=== PATIENT | male | born 1950 | race Caucasian/White ===

== ENCOUNTER 2020-03-27 16:07 | Emergency (ER) | payer MEDICARE, MEDICAID, SELFPAY ==
[2020-03-27 16:14] VITALS: BP 131/73; PULSE 72; RESP 16; TEMP 36.6; O2SAT 98; BMI 18.3
[2020-03-27 16:33] LABS: Glucose, Whole Blood 92 mg/dL (60-115)
--- NOTE | 2020-03-27 16:37 | ECG_ITS ---
Test Reason : FALL Blood Pressure : / mmHG Vent. Rate : 072 BPM Atrial Rate : 072 BPM P-R Int : 156 ms QRS Dur : 096 ms QT Int : 404 ms P-R-T Axes : 049 036 036 degrees QTc Int : 442 ms Normal sinus rhythm Septal infarct (cited on or before 18-SEP-2013) Abnormal ECG When compared with ECG of 18-SEP-2013 22:13, No significant change was found Referred By: David Coronado Electronically Signed By:Melchor Cruz
--- NOTE | 2020-03-27 16:38 | CT_ITS ---
EXAMINATION: CT BRAIN AND CT CERVICAL SPINE WITHOUT CONTRAST. CLINICAL INFORMATION: Fall, neck pain. No LOC. COMPARISON: CT cervical spine and CT brain 11/29/2019 TECHNIQUE: 5 mm thin axial and reformatted 3 mm thin sagittal and coronal images of brain were obtained without contrast. Subsequently axial 3 mm thin and reformatted 2 mm thin sagittal coronal images of cervical spine were obtained. DLP 1780 FINDINGS: There is significant patient motion resulting in significant artifact. BRAIN: There is no acute intra-axial, extra-axial bleed, collection, masses or midline shift. There is a hypodensity seen in bilateral posterior parietal lobes slightly larger on the left. Are unremarkable. Images there is no abnormality seen. The lateral ventricles are symmetrical in size and configuration without enlargement. The akers to white matter differentiation is maintained normal. Bone windows reveal no calvarial abnormality. There is complete opacification of right maxillary sinus. Rest of the paranasal sinuses and mastoids air cells are well-aerated. No scalp soft tissue abnormality seen. CERVICAL SPINE: There is normal cervical lordosis. There is loss of C3-C4, C5-C6 and C6-C7 disc heights with posterior spondylosis. Rest the disc heights, vertebral heights and alignment is normal. The craniovertebral junction and C1-C2 alignment is normal. No visible acute fracture, dislocation or subluxation seen. The prevertebral and paravertebral soft tissues are normal. CT/CT cervical spine wo con IMPRESSION: Bilateral posterior parietal lobe hypodensity suggestive of acute infarction. There is significant artifact seen from patient motion. Repeat images there is no significant upper densities seen in both posterior parietal lobes, likely artifact. Chronic right maxillary sinus inflammatory changes. No acute fracture or dislocation in cervical spine. There are degenerative disc changes with spondylosis as described above. Limited study due to patient motion.
--- NOTE | 2020-03-27 16:40 | ED_ITS ---
HPI - General Adult General Chief complaint: Fall Stated complaint: UNWITNESSED FALL Time Seen by Provider: 03/27/20 16:20 Source: EMS and RN notes reviewed Mode of arrival: EMS Limitations: altered mental status (Patient not answering questions) History of Present Illness HPI narrative: 69-year-old male who presents emergency department for evaluation of an unwitnessed fall at his care facility. Nursing report stated that the patient was standing by his bed and had an unwitnessed fall. The patient complained of feeling lightheaded but he is not answer questions at this time and I cannot get any more details about this symptom. The patient was then sent to the emergency department for evaluation possible injuries from his fall. In the emergency department, the patient is awake alert, he was able to tell me his name but not able answer questions. He does not appear to be in distress. He is cooperative. 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 The patient lives at [facility]. He does not drink alcohol, smoke cigarettes or use drugs. Medical History (Updated 03/27/20 @ 18:35 by David Coronado MD) Cataract Chronic kidney disease Dysphagia Social History Social History Advance Directives: No Advance Directives Information Provided: No Physical Exam Vital Signs: Vital Signs: Last Vital Signs Temp 97.8 F 03/27/20 16:14 Pulse 68 03/27/20 18:25 Resp 16 03/27/20 18:25 BP 136/74 03/27/20 18:25 Pulse Ox 98 03/27/20 16:14 Body Mass Index 18.3 Const: General: cooperative, no acute distress, alert and other (Was able to tell me his name but does not answer questions); No acute distress Orientation/consciousness: oriented to person Limitations: no limitations HENMT: Head: Yes normal to inspection, Yes normocephalic and Yes atraumatic Ears: external ears normal General nose exam: Normal external nose present Face and sinus: Yes normal facial exam Mouth: Normal oral and palatal mucosa present Throat: Yes posterior oropharynx normal Eyes: Periorbital: periorbital findings normal Eyelids: Yes eyelids normal Conjunctivae: conjunctivae normal Sclerae: sclerae normal Corneas: corneas normal Pupils: Equal, round and reactive pupils present Direct Ophthalmoscopy: normal light reflex Neck: Neck: No full ROM (Neck is rigid secondary to arthritis), Yes no lymphadenopathy and Yes trachea midline Chest: Chest palpation & inspection: normal inspection of the chest and normal palpation of entire chest wall Resp: Effort & Inspection: normal respiratory effort Auscultation: clear to auscultation bilaterally Cardio: Rate: regular rate Rhythm: regular rhythm Heart sounds: S1 normal heart sound present, S2 normal heart sound present and no murmurs GI: Inspection: Yes normal to inspection Palpation (GI): Soft to palpation, nontender, no guarding, not rigid and No hepatosplenomegaly present : General: Yes no CVA tenderness Back/Spine/Pelvis: Back: no CVA tenderness Cervical Spine: normal cervical lordosis Thoracic/Lumbar Spine: thoracic and lumbar spine normal to inspection Skin: Lesions: no lesions Rashes: no rashes Wounds: no wounds Neuro: General: oriented to person Cranial nerves: Yes CN's II-XII intact bilaterally and Yes Equal, round and reactive pupils present Cognition (Neuro): normal cognition Speech: Abnormal speech present Motor exam ( neuro): 5/5 motor strength present throughout Extrem: General: Yes normal to inspection and Yes full ROM Psych: Appearance: well kempt Attitude: cooperative Course Course Course Narrative: 69-year-old male who presents emergency department for evaluation of a unwitnessed fall with possible reported dizziness prior to the fall. The patient does have a history of muscle weakness and frequent falls in the past. The patient's examination was unremarkable. Given his age and comorbid medical conditions, I will do a laboratory/cardia workup on this patient and also get a CT scan of the patient's head and cervical spine. 1832: The patient's laboratory evaluation revealed mild anemia with an H&H of 10.8 and 33.8. Patient has an elevated BUN creatinine of 483.5 but this is consistent his baseline chronic kidney disease. CT scan of the brain did not reveal any acute findings, the radiologist did note bilateral posterior parietal lobe hypodensity suggestive acute infarctions however this does not support the clinical picture. Also the patient has chronic right maxillary sinus inflammation which I do not think is the cause of the patient's lightheadedness or near syncope. At this time, I suspect the patient fell probably related to his muscle weakness and that he is medically cleared to be sent back to his nursing facility. Medical Decision Making Lab Data Result diagrams: 03/27/20 17:18 03/27/20 17:18 Labs: Lab Results 03/27/20 03/27/20 03/27/20 Range/Units 16:30 17:18 17:18 WBC 7.9 (4.8-10.8) X10*3/uL RBC 3.54 L (4.60-5.80) X10*6/uL Hgb 10.8 L (14.0-18.0) g/dl Hct 33.8 L (42-52) % MCV 95.5 (80-98) fL MCH 30.5 (27.0-33.0) pg MCHC 32.0 (31.0-36.0) g/dl RDW 13.6 (11.0-16.0) % Plt Count 194 (160-400) X10*3/uL MPV 9.5 (9.4-12.4) fL Immature Gran % (Auto) 0.5 H (0.0-0.4) % Neut % (Auto) 72.0 (45-73) % Lymph % (Auto) 13.5 L (20-40) % [place] % (Auto) 8.1 (2-11) % Eos % (Auto) 5.4 H (0-4) % Baso % (Auto) 0.5 (0-2) % Lymph # (Auto) 1.1 L (1.2-4.9) X10*3/uL [place] # (Auto) 0.6 (0.1-1.2) X10*3/uL Eos # (Auto) 0.4 (0.0-0.4) X10*3/uL Baso # (Auto) 0.0 (0.0-0.2) X10*3/uL Abs Immat Gran (auto) 0.04 H (0.00-0.03) X10*3/uL Absolute Neuts (auto) 5.7 (2.0-8.3) X10*3/uL Absolute Nucleated RBC 0.000 (0.0-0.012) X10*3/uL Nucleated RBC % (auto) 0.0 (0.0-0.2) /100WBC Sodium 143 (135-145) mmol/L Potassium 4.5 (3.3-5.1) mmol/l Chloride 106 (96-108) mmol/L Carbon Dioxide 27 (22-29) mmol/L Anion Gap 15 (12-20) BUN 48 H (9-16) mg/dL Creatinine 3.15 H (0.5-1.4) mg/dL Estim Creat Clear Calc 19.7 Estimated GFR 20 POC Glucose 92 (60-115) mg/dL Random Glucose 92 (60-115) mg/dL Calcium 8.6 (8.4-10.2) mg/dL Total Bilirubin 0.4 (0.0-1.0) mg/dL AST 22 (5-37) U/L ALT 26 (0-40) U/L Alkaline Phosphatase 74 (39-117) U/L Troponin I High Sens (<3.5-35.0) ng/L Total Protein 6.0 L (6.5-8.0) g/dL Albumin 3.8 (3.5-5.0) g/dL 03/27/20 Range/Units 17:18 WBC (4.8-10.8) X10*3/uL RBC (4.60-5.80) X10*6/uL Hgb (14.0-18.0) g/dl Hct (42-52) % MCV (80-98) fL MCH (27.0-33.0) pg MCHC (31.0-36.0) g/dl RDW (11.0-16.0) % Plt Count (160-400) X10*3/uL MPV (9.4-12.4) fL Immature Gran % (Auto) (0.0-0.4) % Neut % (Auto) (45-73) % Lymph % (Auto) (20-40) % [place] % (Auto) (2-11) % Eos % (Auto) (0-4) % Baso % (Auto) (0-2) % Lymph # (Auto) (1.2-4.9) X10*3/uL [place] # (Auto) (0.1-1.2) X10*3/uL Eos # (Auto) (0.0-0.4) X10*3/uL Baso # (Auto) (0.0-0.2) X10*3/uL Abs Immat Gran (auto) (0.00-0.03) X10*3/uL Absolute Neuts (auto) (2.0-8.3) X10*3/uL Absolute Nucleated RBC (0.0-0.012) X10*3/uL Nucleated RBC % (auto) (0.0-0.2) /100WBC Sodium (135-145) mmol/L Potassium (3.3-5.1) mmol/l Chloride (96-108) mmol/L Carbon Dioxide (22-29) mmol/L Anion Gap (12-20) BUN (9-16) mg/dL Creatinine (0.5-1.4) mg/dL Estim Creat Clear Calc Estimated GFR POC Glucose (60-115) mg/dL Random Glucose (60-115) mg/dL Calcium (8.4-10.2) mg/dL Total Bilirubin (0.0-1.0) mg/dL AST (5-37) U/L ALT (0-40) U/L Alkaline Phosphatase (39-117) U/L Troponin I High Sens 5.8 (<3.5-35.0) ng/L Total Protein (6.5-8.0) g/dL Albumin (3.5-5.0) g/dL ECG Data Attestation: I personally reviewed and interpreted this ECG as follows: Prior ECG tracings: not available for review Interpretation: 1644: Normal sinus rhythm with a rate of 72, normal [place], QRS and QTC intervals, normal T-waves, no ST segment elevation, no ST segment depression, Q-waves in V1 and V2 consistent with septal infarct, no old EKG for comparison. This is an abnormal EKG. Discharge Plan Discharge Clinical Impression: Near syncope Fall Qualifiers: Encounter type: initial encounter Qualified Code(s): W19.XXXA - Unspecified fall, initial encounter Patient Disposition: Home, Self-Care Instructions: Dizziness (ED) Additional Instructions: The CT scan of your head and neck did not reveal any acute fractures or bleeds, there are other findings that I think are chronic and not related to her fall today. Your laboratory evaluation revealed mild anemia elevation in your kidney numbers which I do not think her new and are not related to your fall today. Follow-up with your doctor in 2 days. Please return to the emergency department if your symptoms get worse or if you develop any symptoms that are concerning to you.
[2020-03-27 17:22] LABS: MANUAL DIFF FLAG NO
[2020-03-27 17:24] LABS: Basophils Percent Auto 0.5 % (0-2); Eosinophils Absolute Auto 0.4 X10*3/uL (0.0-0.4); Eosinophils Percent Auto 5.4 % (0-4); Hematocrit 33.8 % (42-52); Hemoglobin 10.8 g/dl (14.0-18.0); Imm Gran Abs Auto 0.04 X10*3/uL (0.00-0.03); Imm Gran Pct Auto 0.5 % (0.0-0.4); Lymphocytes Absolute Auto 1.1 X10*3/uL (1.2-4.9); Lymphocytes Percent Auto 13.5 % (20-40); Mean Corpuscular Hemoglobin 30.5 pg (27.0-33.0); Mean Corpuscular Volume 95.5 fL (80-98); Mean Platelet Volume 9.5 fL (9.4-12.4); Monocytes Absolute Auto 0.6 X10*3/uL (0.1-1.2); Monocytes Percent Auto 8.1 % (2-11); Neutrophils Absolute Auto 5.7 X10*3/uL (2.0-8.3); Platelet Count 194 X10*3/uL (160-400); Red Blood Count 3.54 X10*6/uL (4.60-5.80); Red Cell Distribution Width 13.6 % (11.0-16.0); White Blood Count 7.9 X10*3/uL (4.8-10.8)
[2020-03-27 17:43] LABS: Alanine Aminotransferase 26 U/L (0-40); Albumin Level 3.8 g/dL (3.5-5.0); Alkaline Phosphatase 74 U/L (39-117); Anion Gap 15 (12-20); Aspartate Amino Transferase 22 U/L (5-37); Bilirubin Total 0.4 mg/dL (0.0-1.0); Blood Urea Nitrogen 48 mg/dL (9-16); Calcium 8.6 mg/dL (8.4-10.2); Carbon Dioxide 27 mmol/L (22-29); Chloride 106 mmol/L (96-108); Creatinine Clr Calc Pharmacy 19.7; Estimated Glomerular Filt Rate 20; Glucose Random 92 mg/dL (60-115); Potassium 4.5 mmol/l (3.3-5.1); Sodium 143 mmol/L (135-145)
[2020-03-27 17:49] LABS: Troponin-I High Sensitivity 5.8 ng/L (<3.5-35.0)
[2020-03-27 18:25] VITALS: BP 136/74; PULSE 68; RESP 16
== END 2020-03-27 20:23 | disposition home or self-care (01) ==
PROVIDERS: Emergency Provider Emergency Medicine Emergency Medical Services; PCP Hospitalist
DX: R55 Syncope and collapse (principal); M54.2 Cervicalgia; G44.309 Post-traumatic headache, unspecified, not intractable; Z79.899 Other long term (current) drug therapy
CPT/HCPCS: 36415; 70450; 72125; 80053; 82947; 84484; 85025; 93005; 99284

== ENCOUNTER → 2020-05-24 09:09 | Outpatient (BNVA) | payer MEDICARE, MEDICAID, SELFPAY | PROVIDERS: PCP Hospitalist; Visit Provider Urology | DX: N40.1 Benign prostatic hyperplasia with lower urinary tract symptoms (principal); N13.8 Other obstructive and reflux uropathy; R97.20 Elevated prostate specific antigen [PSA] | CPT/HCPCS: 99212 ==

== ENCOUNTER 2020-10-22 00:21 | Emergency (ER) | payer MEDICARE, MEDICAID, SELFPAY ==
--- NOTE | ~2020-10-22 | CT_ITS ---
EXAMINATION: CT HEAD WITHOUT CONTRAST CLINICAL INFORMATION: Weakness. Fall. COMPARISON: 03/27/2019 TECHNIQUE: Contiguous axial imaging was performed from the skull base to vertex without intravenous contrast. This CT examination was performed using dose optimization techniques as appropriate, variously including the following: * Automated exposure control * Adjustment of mA and/or kV according to patient size (this includes techniques or standardized protocols for targeted exams where dose is matched to indication/reason for exam; i.e. extremities or head) Use of iterative reconstruction technique DLP: 772 mGy-cm. FINDINGS: There is no evidence of acute intracranial hemorrhage or territorial infarction. No abnormal mass effect or midline shift is seen. [place] to white matter differentiation is well preserved. No extra-axial fluid collections are identified. No hydrocephalus. Proportional prominence of the ventricles and sulcal spaces is consistent with mild volume loss. Patchy periventricular and deep white matter hypoattenuation is consistent with mild small vessel ischemic changes. The osseous structures and soft tissues are normal. There is near complete opacification of the right maxillary sinus and right frontal sinus with opacification of the anterior right ethmoid air cells. Mucous retention cyst in the left frontal sinus. The mastoid air cells are well aerated. CT/CT head/brain wo con IMPRESSION: No acute intracranial pathology. Right paranasal sinus disease.
[2020-10-22 00:31] VITALS: BP 122/80; PULSE 88; O2SAT 94
[2020-10-22 00:36] VITALS: BP 122/80; PULSE 88; RESP 16; TEMP 36; O2SAT 94; BMI 19.5
--- NOTE | 2020-10-22 02:20 | ED.FALL ---
HPI - Fall General Chief Complaint: Fall Stated Complaint: fall Time Seen by Provider: 10/22/20 02:20 Source: patient Mode of arrival: ambulatory Limitations: other (schizophrenia) History of Present Illness HPI Narrative: [facility], fell twice today at the assisted complaint: fall Onset (ago): hour(s) Fall witnessed: no Place fall occurred: assisted/[facility]NF Loss of consciousness: none Prolonged down time: no Symptoms prior to fall: none Related Data Home Medications Medication Instructions Recorded Confirmed acetazolamide 250 mg tablet 250 mg PO BID 05/24/20 amoxicillin 875 mg-potassium 1 tab PO BID 05/24/20 clavulanate 125 mg tablet atorvastatin 40 mg tablet mg PO 05/24/20 calcitriol 0.25 mcg capsule 0.25 mcg PO DAILY 05/24/20 clotrimazole 1 % topical cream appl TOPICAL 05/24/20 clozapine 100 mg tablet 200 mg PO BEDTIME 05/24/20 clozapine 25 mg tablet 50 mg PO BEDTIME 05/24/20 doxycycline hyclate 100 mg capsule 100 mg PO BID 05/24/20 doxycycline hyclate 100 mg tablet 100 mg PO BID 05/24/20 lactulose 10 gram/15 mL oral PO 05/24/20 solution levothyroxine 50 mcg tablet 50 mcg PO DAILY 05/24/20 nystatin 100,000 unit/gram topical TOPICAL 05/24/20 cream nystatin 100,000 unit/gram topical TOPICAL 05/24/20 powder propranolol 20 mg tablet 20 mg PO BID 05/24/20 tamsulosin 0.4 mg capsule 0.4 mg PO DAILY 05/24/20 terbinafine HCl 250 mg tablet 250 mg PO DAILY 05/24/20 Allergies Allergy/AdvReac Type Severity Reaction Status Date / Time valproic acid [VALPROIC ACID] Allergy Unknown UNKNOWN Unverified 11/19/19 16:17 Review of Systems Review of Systems: Yes Unobtainable due to mental status PMFSH Past Medical History Medical History Cataract Chronic kidney disease Dysphagia Social History Social History Alcohol intake: unknown Patient Tobacco Use Status: Tobacco use Unknown Use of substances other than those prescribed or required for medical reasons: Unknown Advance Directives: No Advance Directives Information Provided: Yes Physical Exam Vital Signs: Vital Signs: Last Vital Signs Temp 96.8 F 10/22/20 00:36 Pulse 83 10/22/20 02:45 Resp 15 10/22/20 04:00 BP 125/77 10/22/20 02:45 Pulse Ox 94 10/22/20 02:45 Body Mass Index 19.5 Const: Other: very thin frail male, appearing chronically ill Limitations: behavioral limitations HENMT: Head: Yes normal to inspection Ears: external ears normal General nose exam: Normal external nose present Mouth: Normal oral and palatal mucosa present and oropharynx normal Throat: Yes posterior oropharynx normal Eyes: General: appearance normal, both eyes and all related structures Neck: Other: supple Neck: Yes normal visual inspection Chest: Chest palpation & inspection: normal inspection of the chest Resp: Auscultation: clear to auscultation bilaterally Cardio: Jugular venous distension: no JVD Rate: regular rate Rhythm: regular rhythm Heart sounds: S1 normal heart sound present and S2 normal heart sound present GI: Inspection: Yes normal to inspection Palpation (GI): Soft to palpation, nontender and No hepatosplenomegaly present Auscultation: normal bowel sounds : General: Yes no CVA tenderness Back/Spine/Pelvis: Back: no CVA tenderness Skin: General skin exam: no rashes or lesions noted Neuro: Other: movement all extremities Cranial nerves: Yes CN's II-XII intact bilaterally Extrem: General: Yes normal to inspection Psych: Appearance: grossly normal Course Reevaluation(s) Reevaluation #1: patient with a gradual decline in his renal function and HCT over time but not acute reason for his falling. Will dc with referral to his pcp Time: 04:43 MDM - Fall Lab Data Result diagrams: 10/22/20 02:52 10/22/20 02:52 Labs: Lab Results 10/22/20 10/22/20 10/22/20 Range/Units 02:52 02:52 Unknown WBC 6.9 (4.8-10.8) X10*3/uL RBC 3.11 L (4.60-5.80) X10*6/uL Hgb 9.3 L (14.0-18.0) g/dl Hct 28.4 L (42-52) % MCV 91.3 (80-98) fL MCH 29.9 (27.0-33.0) pg MCHC 32.7 (31.0-36.0) g/dl RDW 14.7 (11.0-16.0) % Plt Count 217 (160-400) X10*3/uL MPV 8.5 L (9.4-12.4) fL Immature Gran % (Auto) 1.9 H (0.0-0.4) % Neut % (Auto) 71.9 (45-73) % Lymph % (Auto) 6.6 L (20-40) % [place] % (Auto) 13.1 H (2-11) % Eos % (Auto) 6.1 H (0-4) % Baso % (Auto) 0.4 (0-2) % Lymph # (Auto) 0.5 L (1.2-4.9) X10*3/uL [place] # (Auto) 0.9 (0.1-1.2) X10*3/uL Eos # (Auto) 0.4 (0.0-0.4) X10*3/uL Baso # (Auto) 0.0 (0.0-0.2) X10*3/uL Abs Immat Gran (auto) 0.13 H (0.00-0.03) X10*3/uL Absolute Neuts (auto) 4.9 (2.0-8.3) X10*3/uL Absolute Nucleated RBC 0.000 (0.0-0.012) X10*3/uL Nucleated RBC % (auto) 0.0 (0.0-0.2) /100WBC Sodium 143 (135-145) mmol/L Potassium 4.2 (3.3-5.1) mmol/L Chloride 107 (96-108) mmol/L Carbon Dioxide 24 (22-29) mmol/L Anion Gap 16 (12-20) BUN 55 H (9-16) mg/dL Creatinine 3.59 H (0.5-1.4) mg/dL Estim Creat Clear Calc 17.6 Estimated GFR 17 Random Glucose 113 (60-115) mg/dL Calcium 10.5 H D (8.4-10.2) mg/dL Urine Color YELLOW Urine Appearance CLEAR Urine pH 6.0 (5.0-8.0) Ur Specific [place] 1.010 (1.005-1.025) Urine Protein TRACE (NEG-TRACE) MG/DL Urine Glucose (UA) NEG (NEG) MG/DL Urine Ketones NEG (NEG) MG/DL Urine Blood NEG (NEG) Urine Nitrite NEG (NEG) Ur Leukocyte Esterase NEG (NEG) Imaging Data CT scan - head: Radiologist's impression: IMPRESSION: No acute intracranial pathology. Right paranasal sinus disease. Discharge Plan Discharge Clinical Impression: Renal failure Qualifiers: Renal failure chronicity: chronic Chronic kidney disease stage: unspecified stage Qualified Code(s): N18.9 - Chronic kidney disease, unspecified Anemia Qualifiers: Anemia type: due to chronic kidney disease Chronic kidney disease stage: stage 4 (severe) Qualified Code(s): N18.4 - Chronic kidney disease, stage 4 (severe) Patient Disposition: Home, Self-Care Prescriptions: No Action levothyroxine 50 mcg tablet 50 mcg PO DAILY RF: 0 lactulose 10 gram/15 mL solution PO RF: 0 calcitriol 0.25 mcg capsule 0.25 mcg PO DAILY RF: 0 tamsulosin 0.4 mg capsule 0.4 mg PO DAILY RF: 0 atorvastatin 40 mg tablet PO RF: 0 clozapine 100 mg tablet 200 mg PO BEDTIME RF: 0 clozapine 25 mg tablet 50 mg PO BEDTIME RF: 0 terbinafine HCl 250 mg tablet 250 mg PO DAILY RF: 0 amoxicillin-pot clavulanate 875-125 mg tablet 1 tab PO BID RF: 0 propranolol 20 mg tablet 20 mg PO BID RF: 0 nystatin 100,000 unit/gram powder topical RF: 0 doxycycline hyclate 100 mg tablet 100 mg PO BID RF: 0 clotrimazole 1 % cream topical RF: 0 nystatin 100,000 unit/gram cream topical RF: 0 doxycycline hyclate 100 mg capsule 100 mg PO BID RF: 0 acetazolamide 250 mg tablet 250 mg PO BID RF: 0 Referrals: Physician,Unknown [Primary Care Provider] - 1 week Interventions: ED Discharge Assessment Last Done: 10/22/20 05:10
[2020-10-22 02:45] VITALS: BP 125/77; PULSE 83; RESP 16; O2SAT 94
[2020-10-22 02:57] LABS: Basophils Percent Auto 0.4 % (0-2); Eosinophils Absolute Auto 0.4 X10*3/uL (0.0-0.4); Eosinophils Percent Auto 6.1 % (0-4); Hematocrit 28.4 % (42-52); Hemoglobin 9.3 g/dl (14.0-18.0); Imm Gran Abs Auto 0.13 X10*3/uL (0.00-0.03); Imm Gran Pct Auto 1.9 % (0.0-0.4); Lymphocytes Absolute Auto 0.5 X10*3/uL (1.2-4.9); Lymphocytes Percent Auto 6.6 % (20-40); MANUAL DIFF FLAG NO; Mean Corpuscular HGB Conc 32.7 g/dl (31.0-36.0); Mean Corpuscular Hemoglobin 29.9 pg (27.0-33.0); Mean Corpuscular Volume 91.3 fL (80-98); Mean Platelet Volume 8.5 fL (9.4-12.4); Monocytes Absolute Auto 0.9 X10*3/uL (0.1-1.2); Monocytes Percent Auto 13.1 % (2-11); Neutrophils Absolute Auto 4.9 X10*3/uL (2.0-8.3); Neutrophils Percent Auto 71.9 % (45-73); Platelet Count 217 X10*3/uL (160-400); Red Blood Count 3.11 X10*6/uL (4.60-5.80); Red Cell Distribution Width 14.7 % (11.0-16.0); White Blood Count 6.9 X10*3/uL (4.8-10.8)
[2020-10-22 03:34] LABS: Appearance Urine CLEAR; Color Urine YELLOW; Glucose Urine UA NEG (NEG); Leukocyte Esterase Urine NEG (NEG); Nitrite Urine NEG (NEG); UACC Culture Trigger NO; Urine Blood NEG (NEG); Urine Ketones NEG (NEG); Urine Protein TRACE MG/DL (NEG-TRACE)
[2020-10-22 03:35] LABS: Anion Gap 16 (12-20); Blood Urea Nitrogen 55 mg/dL (9-16); Calcium 10.5 mg/dL (8.4-10.2); Carbon Dioxide 24 mmol/L (22-29); Chloride 107 mmol/L (96-108); Creatinine Clr Calc Pharmacy 17.6; Estimated Glomerular Filt Rate 17; Glucose Random 113 mg/dL (60-115); Potassium 4.2 mmol/L (3.3-5.1); Sodium 143 mmol/L (135-145)
[2020-10-22 04:00] VITALS: RESP 15
--- NOTE | 2020-10-22 05:13 | PC.NURSE ---
Attempt to call [facility] to give a warm transfer but there was no answer. Patient sent back to residential via ambulance
[2020-10-22 07:09] VITALS: BP 118/70; PULSE 89; RESP 16; O2SAT 98
== END 2020-10-22 07:50 | disposition home or self-care (01) ==
PROVIDERS: Emergency Provider Emergency Medicine
DX: N18.4 Chronic kidney disease, stage 4 (severe) (principal); D63.1 Anemia in chronic kidney disease; Z91.81 History of falling; Z79.899 Other long term (current) drug therapy
CPT/HCPCS: 36415; 70450; 80048; 81003; 85025; 99284

== ENCOUNTER 2021-04-13 11:06 | Emergency (ER) | payer MEDICARE, MEDICAID, SELFPAY ==
--- NOTE | ~2021-04-13 | CT_ITS ---
EXAMINATION: CT HEAD WITHOUT CONTRAST CLINICAL INFORMATION: Altered mental status COMPARISON: October 22, 2020 TECHNIQUE: Contiguous axial imaging was performed from the skull base to vertex without intravenous administration of contrast. This CT examination was performed using dose optimization techniques as appropriate, variously including the following: *Automated exposure control *Adjustment of mA and/or kV according to patient size (this includes techniques or standardized protocols for targeted exams where dose is matched to indication/reason for exam; i.e. extremities or head) *Use of iterative reconstruction technique DLP: 758 mGy-cm FINDINGS: There is no evidence of acute intracranial hemorrhage or territorial infarction. No abnormal mass effect or midline shift is seen. Richardson to white matter differentiation is well preserved. No extra-axial fluid collections are identified. The ventricles are normal in size. There is mild periventricular white matter low density present. The osseous structures and soft tissues are normal. Mastoid air cells are aerated. There is some mucosal thickening seen within the paranasal sinuses. CT/CT head/brain wo con IMPRESSION: No acute intracranial pathology.
[2021-04-13 11:22] VITALS: BP 102/55; BP 96/48; PULSE 58; PULSE 67; RESP 14; TEMP 37.2; O2SAT 97; BMI 25.7
--- NOTE | 2021-04-13 11:22 | ECG_ITS ---
Test Reason : GIVEN WRONG bp MEDS Blood Pressure : / mmHG Vent. Rate : 060 BPM Atrial Rate : 060 BPM P-R Int : 172 ms QRS Dur : 110 ms QT Int : 464 ms P-R-T Axes : 052 036 051 degrees QTc Int : 464 ms Normal sinus rhythm Septal infarct (cited on or before 18-SEP-2013) Abnormal ECG When compared with ECG of 27-MAR-2020 16:44, No significant change was found Referred By: Geri Cortez Electronically Signed By:Melchor Cruz
--- NOTE | 2021-04-13 11:24 | ED.GENADULT ---
HPI - General Adult General Chief complaint: General Medical Stated complaint: LOW HR AND LOW BP, MED ERROR GIVEN KEPRA PER EMS Time Seen by Provider: 04/13/21 11:22 Source: patient and EMS Mode of arrival: EMS Limitations: no limitations History of Present Illness HPI narrative: Patient comes via EMS from [facility]. According to the staff, EMS reports that the patient was given accidentally his blood pressure medication rather than his scheduled Keppra. Patient is very somnolent, easily arousable but goes up to sleep. Per EMS, blood pressure has been between 60 and 70 systolic. On arrival, blood pressure is in the low 100s. Patient is too somnolent to provide any history. However, on patient's chart from [facility], patient is not on any blood pressure medications. At this time, it is unclear what medications they gave him, or if he accidentally received another patient's medication. Related Data Home Medications Medication Instructions Recorded Confirmed atorvastatin 40 mg tablet 40 mg PO DAILY 05/24/20 04/13/21 calcitriol 0.25 mcg capsule 0.25 mcg PO DAILY 05/24/20 04/13/21 clozapine 100 mg tablet 100 mg PO BID 05/24/20 04/13/21 clozapine 25 mg tablet 25 mg PO BID 05/24/20 04/13/21 lactulose 10 gram/15 mL oral 20 g PO BID 05/24/20 04/13/21 solution levothyroxine 50 mcg tablet 50 mcg PO DAILY@0600 05/24/20 04/13/21 tamsulosin 0.4 mg capsule 0.4 mg PO BEDTIME 05/24/20 04/13/21 acetaminophen 325 mg tablet 650 mg PO Q4H PRN 04/13/21 04/13/21 melatonin 3 mg tablet 3 mg PO BEDTIME 04/13/21 04/13/21 multivitamin,tx-minerals 1 tab PO DAILY 04/13/21 04/13/21 sennosides 8.6 mg tablet (senna) 8.6 mg PO Q24H PRN 04/13/21 04/13/21 sennosides 8.6 mg tablet (senna) 17.2 mg PO BEDTIME 04/13/21 04/13/21 Allergies Allergy/AdvReac Type Severity Reaction Status Date / Time valproic acid [VALPROIC ACID] Allergy Unknown UNKNOWN Unverified 11/19/19 16:17 [facility] Past Medical History Medical History Cataract Chronic kidney disease Dysphagia Social History Social History Alcohol intake: unknown Patient Tobacco Use Status: Tobacco use Unknown Smoked in Last 30 Days: No Use of substances other than those prescribed or required for medical reasons: Unknown Advance Directives: Yes Advance Directives Information Provided: No Advance Directives on File: No Physical Exam Vital Signs: Vital Signs: Last Vital Signs Temp 98.9 F 04/13/21 11: Pulse 60 04/13/21 15:40 Resp 10 L 04/13/21 15:40 BP 119/61 04/13/21 15:40 Pulse Ox 99 04/13/21 15:40 BMI result Body Mass Index 25.7 Course Course Course Narrative: I discussed with the patient that his hemoglobin levels keep dropping. Patient states that he refuses digital rectal exam. Also, we were able to get in touch with the custodial facility. Seems that they gave the patient another patient's medications. Seems the patient received enalapril and 1500 mg of Keppra. They said that they give the patient ?other medications? but does worsen the most concerning. We asked to send us the list of medications of the other patient. We called multiple times the shelter, we never received the fax with the information of the other patient's medications. We did not get any answer back. Urinalysis pending. Otherwise, patient has remained normotensive and heart rate between the 50s and 60s, easily arousable. Lab data urinalysis, patient may be discharged back to the shelter. Urinalysis negative. Patient will be returning home. Medical Decision Making Lab Data Result diagrams: 04/13/21 11:33 04/13/21 11:34 Labs: Lab Results 04/13/21 04/13/21 04/13/21 Range/Units 11:33 11:34 11:34 WBC 5.0 (4.8-10.8) X10*3/uL RBC 2.91 L (4.60-5.80) X10*6/uL Hgb 8.9 L (14.0-18.0) g/dl Hct 27.4 L (42.0-52.0) % MCV 94.2 (80.0-98.0) fL MCH 30.6 (27.0-33.0) pg MCHC 32.5 (31.0-36.0) g/dl RDW 14.3 (11.0-16.0) % Plt Count 169 (160-400) X10*3/uL MPV 8.9 L (9.4-12.4) fL Immature Gran % (Auto) 0.4 (0.0-0.4) % Neut % (Auto) 64.8 (45-73) % Lymph % (Auto) 19.5 L (20-40) % [place] % (Auto) 10.1 (2-11) % Eos % (Auto) 4.8 H (0-4) % Baso % (Auto) 0.4 (0-2) % Lymph # (Auto) 1.0 L (1.2-4.9) X10*3/uL [place] # (Auto) 0.5 (0.1-1.2) X10*3/uL Eos # (Auto) 0.2 (0.0-0.4) X10*3/uL Baso # (Auto) 0.0 (0.0-0.2) X10*3/uL Abs Immat Gran (auto) 0.02 (0.00-0.03) X10*3/uL Absolute Neuts (auto) 3.2 (2.0-8.3) x10*3/uL Absolute Nucleated RBC 0.000 (0.0-0.012) X10*3/uL Nucleated RBC % (auto) 0.0 (0.0-0.2) /100WBC PT 11.2 (9.9-13.0) SEC INR 1.0 (0.9-1.1) Sodium 139 (135-145) mmol/L Potassium 3.5 (3.3-5.1) mmol/L Chloride 107 (96-108) mmol/L Carbon Dioxide 24 (22-29) mmol/L Anion Gap 12 (12-20) BUN 54 H (9-16) mg/dL Creatinine 3.90 H (0.5-1.4) mg/dL Estim Creat Clear Calc 14.8 Estimated GFR 15 Random Glucose 85 (60-115) mg/dL Lactic Acid (0.5-2.0) mmol/L Calcium 9.1 D (8.4-10.2) mg/dL Magnesium 2.1 (1.6-2.6) mg/dL Total Bilirubin 0.3 (0.0-1.0) mg/dL Direct Bilirubin < 0.2 (0.0-0.5) mg/dL AST 10 D (5-37) U/L ALT 11 (0-40) U/L Alkaline Phosphatase 54 D (39-117) U/L Ammonia (13-55) umol/L Troponin I High Sens (<3.5-35.0) ng/L B-Natriuretic Peptide (<100) pg/mL Total Protein 5.3 L (6.5-8.0) g/dL Albumin 3.4 L (3.5-5.0) g/dL Lipase 67 (8-78) U/L TSH (0.32-4.0) uIU/mL Urine Color Urine Appearance Urine pH (5.0-8.0) Ur Specific [place] (1.005-1.025) Urine Protein (NEG-TRACE) MG/DL Urine Glucose (UA) (NEG) MG/DL Urine Ketones (NEG) MG/DL Urine Blood (NEG) Urine Nitrite (NEG) Ur Leukocyte Esterase (NEG) Salicylates < 5.0 L (15-30) mg/dL Urine Opiates Screen (Not Detect) Urine Fentanyl Screen (Not Detect) Acetaminophen < 1 (<30) mcg/mL Ur Barbiturates Screen (Not Detect) Ur Phencyclidine Scrn (Not Detect) Ur Amphetamines Screen (Not Detect) U Benzodiazepines Scrn (Not Detect) Urine Cocaine Screen (Not Detect) U Marijuana (THC) Screen (Not Detect) COVID-19 (JING) (Negative) COVID-19 Clin Com 04/13/21 04/13/21 04/13/21 Range/Units 11:34 11:34 11:36 WBC (4.8-10.8) X10*3/uL RBC (4.60-5.80) X10*6/uL Hgb (14.0-18.0) g/dl Hct (42.0-52.0) % MCV (80.0-98.0) fL MCH (27.0-33.0) pg MCHC (31.0-36.0) g/dl RDW (11.0-16.0) % Plt Count (160-400) X10*3/uL MPV (9.4-12.4) fL Immature Gran % (Auto) (0.0-0.4) % Neut % (Auto) (45-73) % Lymph % (Auto) (20-40) % [place] % (Auto) (2-11) % Eos % (Auto) (0-4) % Baso % (Auto) (0-2) % Lymph # (Auto) (1.2-4.9) X10*3/uL [place] # (Auto) (0.1-1.2) X10*3/uL Eos # (Auto) (0.0-0.4) X10*3/uL Baso # (Auto) (0.0-0.2) X10*3/uL Abs Immat Gran (auto) (0.00-0.03) X10*3/uL Absolute Neuts (auto) (2.0-8.3) x10*3/uL Absolute Nucleated RBC (0.0-0.012) X10*3/uL Nucleated RBC % (auto) (0.0-0.2) /100WBC PT (9.9-13.0) SEC INR (0.9-1.1) Sodium (135-145) mmol/L Potassium (3.3-5.1) mmol/L Chloride (96-108) mmol/L Carbon Dioxide (22-29) mmol/L Anion Gap (12-20) BUN (9-16) mg/dL Creatinine (0.5-1.4) mg/dL Estim Creat Clear Calc Estimated GFR Random Glucose (60-115) mg/dL Lactic Acid 1.2 (0.5-2.0) mmol/L Calcium (8.4-10.2) mg/dL Magnesium (1.6-2.6) mg/dL Total Bilirubin (0.0-1.0) mg/dL Direct Bilirubin (0.0-0.5) mg/dL AST (5-37) U/L ALT (0-40) U/L Alkaline Phosphatase (39-117) U/L Ammonia (13-55) umol/L Troponin I High Sens 4.9 (<3.5-35.0) ng/L B-Natriuretic Peptide < 10 (<100) pg/mL Total Protein (6.5-8.0) g/dL Albumin (3.5-5.0) g/dL Lipase (8-78) U/L TSH (0.32-4.0) uIU/mL Urine Color Urine Appearance Urine pH (5.0-8.0) Ur Specific [place] (1.005-1.025) Urine Protein (NEG-TRACE) MG/DL Urine Glucose (UA) (NEG) MG/DL Urine Ketones (NEG) MG/DL Urine Blood (NEG) Urine Nitrite (NEG) Ur Leukocyte Esterase (NEG) Salicylates (15-30) mg/dL Urine Opiates Screen (Not Detect) Urine Fentanyl Screen (Not Detect) Acetaminophen (<30) mcg/mL Ur Barbiturates Screen (Not Detect) Ur Phencyclidine Scrn (Not Detect) Ur Amphetamines Screen (Not Detect) U Benzodiazepines Scrn (Not Detect) Urine Cocaine Screen (Not Detect) U Marijuana (THC) Screen (Not Detect) COVID-19 (JING) Negative (Negative) COVID-19 Clin Com See Note 04/13/21 04/13/21 04/13/21 Range/Units 11:43 11:44 13:10 WBC (4.8-10.8) X10*3/uL RBC (4.60-5.80) X10*6/uL Hgb (14.0-18.0) g/dl Hct (42.0-52.0) % MCV (80.0-98.0) fL MCH (27.0-33.0) pg MCHC (31.0-36.0) g/dl RDW (11.0-16.0) % Plt Count (160-400) X10*3/uL MPV (9.4-12.4) fL Immature Gran % (Auto) (0.0-0.4) % Neut % (Auto) (45-73) % Lymph % (Auto) (20-40) % [place] % (Auto) (2-11) % Eos % (Auto) (0-4) % Baso % (Auto) (0-2) % Lymph # (Auto) (1.2-4.9) X10*3/uL [place] # (Auto) (0.1-1.2) X10*3/uL Eos # (Auto) (0.0-0.4) X10*3/uL Baso # (Auto) (0.0-0.2) X10*3/uL Abs Immat Gran (auto) (0.00-0.03) X10*3/uL Absolute Neuts (auto) (2.0-8.3) x10*3/uL Absolute Nucleated RBC (0.0-0.012) X10*3/uL Nucleated RBC % (auto) (0.0-0.2) /100WBC PT (9.9-13.0) SEC INR (0.9-1.1) Sodium (135-145) mmol/L Potassium (3.3-5.1) mmol/L Chloride (96-108) mmol/L Carbon Dioxide (22-29) mmol/L Anion Gap (12-20) BUN (9-16) mg/dL Creatinine (0.5-1.4) mg/dL Estim Creat Clear Calc Estimated GFR Random Glucose (60-115) mg/dL Lactic Acid (0.5-2.0) mmol/L Calcium (8.4-10.2) mg/dL Magnesium (1.6-2.6) mg/dL Total Bilirubin (0.0-1.0) mg/dL Direct Bilirubin (0.0-0.5) mg/dL AST (5-37) U/L ALT (0-40) U/L Alkaline Phosphatase (39-117) U/L Ammonia 19 (13-55) umol/L Troponin I High Sens (<3.5-35.0) ng/L B-Natriuretic Peptide (<100) pg/mL Total Protein (6.5-8.0) g/dL Albumin (3.5-5.0) g/dL Lipase (8-78) U/L TSH 3.38 (0.32-4.0) uIU/mL Urine Color YELLOW Urine Appearance CLEAR Urine pH 6.0 (5.0-8.0) Ur Specific [place] <= 1.005 (1.005-1.025) Urine Protein NEG (NEG-TRACE) MG/DL Urine Glucose (UA) NEG (NEG) MG/DL Urine Ketones NEG (NEG) MG/DL Urine Blood NEG (NEG) Urine Nitrite NEG (NEG) Ur Leukocyte Esterase NEG (NEG) Salicylates (15-30) mg/dL Urine Opiates Screen (Not Detect) Urine Fentanyl Screen (Not Detect) Acetaminophen (<30) mcg/mL Ur Barbiturates Screen (Not Detect) Ur Phencyclidine Scrn (Not Detect) Ur Amphetamines Screen (Not Detect) U Benzodiazepines Scrn (Not Detect) Urine Cocaine Screen (Not Detect) U Marijuana (THC) Screen (Not Detect) COVID-19 (JING) (Negative) COVID-19 Clin Com 04/13/21 Range/Units 13:10 WBC (4.8-10.8) X10*3/uL RBC (4.60-5.80) X10*6/uL Hgb (14.0-18.0) g/dl Hct (42.0-52.0) % MCV (80.0-98.0) fL MCH (27.0-33.0) pg MCHC (31.0-36.0) g/dl RDW (11.0-16.0) % Plt Count (160-400) X10*3/uL MPV (9.4-12.4) fL Immature Gran % (Auto) (0.0-0.4) % Neut % (Auto) (45-73) % Lymph % (Auto) (20-40) % [place] % (Auto) (2-11) % Eos % (Auto) (0-4) % Baso % (Auto) (0-2) % Lymph # (Auto) (1.2-4.9) X10*3/uL [place] # (Auto) (0.1-1.2) X10*3/uL Eos # (Auto) (0.0-0.4) X10*3/uL Baso # (Auto) (0.0-0.2) X10*3/uL Abs Immat Gran (auto) (0.00-0.03) X10*3/uL Absolute Neuts (auto) (2.0-8.3) x10*3/uL Absolute Nucleated RBC (0.0-0.012) X10*3/uL Nucleated RBC % (auto) (0.0-0.2) /100WBC PT (9.9-13.0) SEC INR (0.9-1.1) Sodium (135-145) mmol/L Potassium (3.3-5.1) mmol/L Chloride (96-108) mmol/L Carbon Dioxide (22-29) mmol/L Anion Gap (12-20) BUN (9-16) mg/dL Creatinine (0.5-1.4) mg/dL Estim Creat Clear Calc Estimated GFR Random Glucose (60-115) mg/dL Lactic Acid (0.5-2.0) mmol/L Calcium (8.4-10.2) mg/dL Magnesium (1.6-2.6) mg/dL Total Bilirubin (0.0-1.0) mg/dL Direct Bilirubin (0.0-0.5) mg/dL AST (5-37) U/L ALT (0-40) U/L Alkaline Phosphatase (39-117) U/L Ammonia (13-55) umol/L Troponin I High Sens (<3.5-35.0) ng/L B-Natriuretic Peptide (<100) pg/mL Total Protein (6.5-8.0) g/dL Albumin (3.5-5.0) g/dL Lipase (8-78) U/L TSH (0.32-4.0) uIU/mL Urine Color Urine Appearance Urine pH (5.0-8.0) Ur Specific [place] (1.005-1.025) Urine Protein (NEG-TRACE) MG/DL Urine Glucose (UA) (NEG) MG/DL Urine Ketones (NEG) MG/DL Urine Blood (NEG) Urine Nitrite (NEG) Ur Leukocyte Esterase (NEG) Salicylates (15-30) mg/dL Urine Opiates Screen Not Detected (Not Detect) Urine Fentanyl Screen Not Detected (Not Detect) Acetaminophen (<30) mcg/mL Ur Barbiturates Screen Not Detected (Not Detect) Ur Phencyclidine Scrn Not Detected (Not Detect) Ur Amphetamines Screen Not Detected (Not Detect) U Benzodiazepines Scrn Not Detected (Not Detect) Urine Cocaine Screen Not Detected (Not Detect) U Marijuana (THC) Screen Not Detected (Not Detect) COVID-19 (JING) (Negative) COVID-19 Clin Com Imaging Data CT scan - head: Radiologist's impression: FINDINGS: There is no evidence of acute intracranial hemorrhage or territorial infarction. No abnormal mass effect or midline shift is seen. Richardson to white matter differentiation is well preserved. No extra-axial fluid collections are identified. The ventricles are normal in size. There is mild periventricular white matter low density present. The osseous structures and soft tissues are normal. Mastoid air cells are aerated. There is some mucosal thickening seen within the paranasal sinuses. ? CT/CT head/brain wo con IMPRESSION: No acute intracranial pathology. Discharge Plan Discharge Clinical Impression: Medication administered in error Patient Disposition: Home, Self-Care Additional Instructions: Please follow-up with your primary care physician tomorrow. If you have any worsening or new symptoms, please return to the emergency room or call 911 Prescriptions: No Action sennosides [senna] 8.6 mg Tablet 8.6 mg PO Q24H PRN (Reason: Constipation) 0RF sennosides [senna] 8.6 mg Tablet 17.2 mg PO BEDTIME 0RF acetaminophen 325 mg Tablet 650 mg PO Q4H PRN (Reason: Pain) 0RF melatonin 3 mg Tablet 3 mg PO BEDTIME 0RF Thera M Tablet 1 tab PO DAILY 0RF levothyroxine 50 mcg tablet 50 mcg PO DAILY@0600 0RF lactulose 10 gram/15 mL solution 20 g PO BID 0RF calcitriol 0.25 mcg capsule 0.25 mcg PO DAILY 0RF tamsulosin 0.4 mg capsule 0.4 mg PO BEDTIME 0RF atorvastatin 40 mg tablet 40 mg PO DAILY 0RF clozapine 100 mg tablet 100 mg PO BID 0RF clozapine 25 mg tablet 25 mg PO BID 0RF
[2021-04-13] MEDS: 0.9 % Sodium Chloride 1,000 ML 999 ML IVCONT (11:34)
[2021-04-13 11:35] VITALS: BP 106/58
--- NOTE | 2021-04-13 11:41 | PHA.MEDREC ---
Pharmacy Consult ? Medication Reconciliation Pharmacy has completed the medication reconciliation. Patient came from [facility] with medication list. Patient recieve wrong patient medication this AM. Sun Frias, LeonD
[2021-04-13 11:45] LABS: MANUAL DIFF FLAG NO
[2021-04-13 11:54] LABS: Basophils Percent Auto 0.4 % (0-2); Eosinophils Absolute Auto 0.2 X10*3/uL (0.0-0.4); Eosinophils Percent Auto 4.8 % (0-4); Hematocrit 27.4 % (42.0-52.0); Hemoglobin 8.9 g/dl (14.0-18.0); Imm Gran Abs Auto 0.02 X10*3/uL (0.00-0.03); Imm Gran Pct Auto 0.4 % (0.0-0.4); Lymphocytes Percent Auto 19.5 % (20-40); Mean Corpuscular HGB Conc 32.5 g/dl (31.0-36.0); Mean Corpuscular Hemoglobin 30.6 pg (27.0-33.0); Mean Corpuscular Volume 94.2 fL (80.0-98.0); Mean Platelet Volume 8.9 fL (9.4-12.4); Monocytes Absolute Auto 0.5 X10*3/uL (0.1-1.2); Monocytes Percent Auto 10.1 % (2-11); Neutrophils Absolute Auto 3.2 x10*3/uL (2.0-8.3); Neutrophils Percent Auto 64.8 % (45-73); Platelet Count 169 X10*3/uL (160-400); Red Blood Count 2.91 X10*6/uL (4.60-5.80); Red Cell Distribution Width 14.3 % (11.0-16.0)
[2021-04-13 12:00] LABS: Prothrombin Time 11.2 SEC (9.9-13.0)
[2021-04-13 12:06] LABS: Ammonia 19 umol/L (13-55)
[2021-04-13 12:10] LABS: Lactic Acid 1.2 mmol/L (0.5-2.0)
[2021-04-13 12:11] LABS: B Type Natriuretic Peptide < 10 pg/mL (<100); Troponin-I High Sensitivity 4.9 ng/L (<3.5-35.0)
[2021-04-13 12:11] LABS: COVID-19 Test Negative (Negative); IDNOW Serial# 9DD0AD1C
[2021-04-13 12:14] LABS: Acetaminophen LAB < 1 mcg/mL (<30); Alanine Aminotransferase 11 U/L (0-40); Albumin Level 3.4 g/dL (3.5-5.0); Alkaline Phosphatase 54 U/L (39-117); Anion Gap 12 (12-20); Aspartate Amino Transferase 10 U/L (5-37); Bilirubin Direct < 0.2 mg/dL (0.0-0.5); Bilirubin Total 0.3 mg/dL (0.0-1.0); Blood Urea Nitrogen 54 mg/dL (9-16); Calcium 9.1 mg/dL (8.4-10.2); Carbon Dioxide 24 mmol/L (22-29); Chloride 107 mmol/L (96-108); Creatinine Clr Calc Pharmacy 14.8; Estimated Glomerular Filt Rate 15; Glucose Random 85 mg/dL (60-115); Lipase 67 U/L (8-78); Magnesium 2.1 mg/dL (1.6-2.6); Potassium 3.5 mmol/L (3.3-5.1); Salicylate < 5.0 mg/dL (15-30); Sodium 139 mmol/L (135-145); Total Protein 5.3 g/dL (6.5-8.0)
[2021-04-13 12:34] LABS: TSH reflex Free T4 3.38 uIU/mL (0.32-4.0)
[2021-04-13 13:19] LABS: Appearance Urine CLEAR; Color Urine YELLOW; Glucose Urine UA NEG (NEG); Leukocyte Esterase Urine NEG (NEG); Nitrite Urine NEG (NEG); Specific Gravity - Urine <= 1.005 (1.005-1.025); Urine Blood NEG (NEG); Urine Ketones NEG (NEG); Urine Protein NEG (NEG-TRACE)
[2021-04-13 13:35] LABS: Amphetamine Screen Urine Not Detected (Not Detect); Barbiturates, Urine Not Detected (Not Detect); Benzodiazepines Screen Urine Not Detected (Not Detect); Cannabinoid Screen Urine Not Detected (Not Detect); Cocaine Screen Urine Not Detected (Not Detect); Fentanyl, urine Not Detected (Not Detect); Opiate Screen Urine Not Detected (Not Detect); Phencyclidine Screen Urine Not Detected (Not Detect)
[2021-04-13 13:38] VITALS: BP 80/47; PULSE 54; RESP 13; O2SAT 98
[2021-04-13 15:40] VITALS: BP 119/61; PULSE 60; RESP 10; O2SAT 99
== END 2021-04-13 20:35 | disposition home or self-care (01) ==
PROVIDERS: Emergency Provider Emergency Medicine; PCP Hospitalist
DX: R00.1 Bradycardia, unspecified (principal); R41.82 Altered mental status, unspecified; Z79.899 Other long term (current) drug therapy; Z20.822 Contact with and (suspected) exposure to COVID-19
CPT/HCPCS: 36415; 70450; 80048; 80076; 80143; 80179; 80307; 81003; 82140; 83605; 83690; 83735; 83880; 84443; 84484; 85025; 85610; 87040; 87635; 93005; 96360; 99284; 99285

== ENCOUNTER → 2022-07-04 14:51 | Outpatient (BNVA) | payer MEDICARE, MEDICAID, SELFPAY | PROVIDERS: PCP Hospitalist; Visit Provider Urology | DX: N40.1 Benign prostatic hyperplasia with lower urinary tract symptoms (principal); N13.8 Other obstructive and reflux uropathy; R97.20 Elevated prostate specific antigen [PSA] | CPT/HCPCS: 99212 ==

== ENCOUNTER 2023-01-03 10:18 | Outpatient (AMB) | payer MEDICARE, MEDICAID, SELFPAY ==
--- NOTE | 2023-01-03 10:31 | A.OFFVIS_ITS ---
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 Is accompanied by caregiver. Able to answer questions - lower urinary tract symptoms - incomplete bladder emptying High PVR Current combination finasteride plus tamsulosin Repeat PVR in 6 months On prompted voiding schedule Uses continence brief for accidents BPH Nocturia x1 Has urinary control Current medication tamsulosin 0.4 mg with finasteride Laboratories prior PSA was elevated as high as 4.4. - 04/24 2.8 Can continue with yearly evaluation PFSH Medical History Cataract Chronic kidney disease Dysphagia Social History Alcohol intake: unknown Patient Tobacco Use Status: Tobacco use Unknown Review of Systems Const Denies chills and Denies fever(s) Card Reports no additional complaints and Denies syncope Resp Denies cough GI Denies abdominal pain and Denies heartburn Reports as per HPI and Denies change in libido Neuro Denies syncope Psych Denies change in libido Endo Denies change in libido Physical Exam Const General: cooperative, healthy appearing, comfortable and no acute distress Orientation/consciousness: patient oriented x3 HEENT Face and sinus: Yes normal facial exam Mouth: moist mucous membranes Neck Neck: Yes normal visual inspection, Yes full ROM and Yes trachea midline Chest Chest palpation & inspection: normal inspection of the chest Resp Effort & Inspection: normal respiratory effort, able to speak in complete sentences and no respiratory distress GI Inspection: Yes normal to inspection Back/Spine/Pelvis Cervical Spine: normal cervical lordosis Thoracic/Lumbar Spine: thoracic and lumbar spine normal to inspection Skin General skin exam: no rashes or lesions noted Neuro General: patient oriented x3, gait normal, tone normal and moves all extremities Extrem General: Yes normal to inspection and Yes capillary refill normal Office Procedures Post Void Residual Post Residual Void Post Void Residual (PVR): [id number] Void Residual by ultrasound Assessment & Plan Assessment & Plan (1) Elevated PSA: Code(s): R97.20 - Elevated prostate specific antigen [PSA] (2) BPH w urinary obs/LUTS: Code(s): N40.1 - Benign prostatic hyperplasia with lower urinary tract symptoms; N13.8 - Other obstructive and reflux uropathy Plan 6m PVR Orders: Orders AMB Post Void Residual by ultrasound Today N13.8 - Other obstructive and reflux uropathy, N40.1 - Benign prostatic hyperplasia with lower urinary tract symptoms Patient Instructions: Imaging studies, laboratory and physical exam results were discussed and reviewed in detail. No major barriers to patient understanding were identified. An opportunity to ask questions regarding the treatment plan was provided. All questions were answered. The patient expressed understanding and agreement with the above treatment plan. The patient is aware they should contact our office by phone for worsening of their current condition or the appearance of new urologic symptoms. Compliance is encouraged with any medications and followup testing that is ordered. It is a privilege to participate in the urologic care of your patient. If you have any questions or concerns regarding treatment for the above conditions, or other urologic issues, please do not hesitate to contact me. The office telephone contact is [phone]. This note is constructed using voice recognition software. While every effort has been made to ensure accuracy computer systems design analyst errors may have been included. Yours sincerely, Dr Jeremi Jamison MD, [facility] - Urology Providers of Expert, Compassionate Care for the Genitourinary System Coding Level of Care Code Est Pt Level 3 (83063) Diagnoses Elevated PSA R97.20 BPH w urinary obs/LUTS N40.1; N13.8 CPT Codes Post Residual Void - PVR CPT Code: 96090-[place] Void Residual by ultrasound ([id number])
== END 2023-01-03 10:54 | disposition home or self-care (01) ==
PROVIDERS: Visit Provider Urology
DX: R97.20 Elevated prostate specific antigen [PSA] (principal); N40.1 Benign prostatic hyperplasia with lower urinary tract symptoms; N13.8 Other obstructive and reflux uropathy
CPT/HCPCS: 99213

== ENCOUNTER → 2023-01-03 10:18 | Outpatient (BNVA) | payer MEDICARE, MEDICAID, SELFPAY | PROVIDERS: Visit Provider Urology | DX: N40.1 Benign prostatic hyperplasia with lower urinary tract symptoms (principal); N13.8 Other obstructive and reflux uropathy; R33.8 Other retention of urine; R97.20 Elevated prostate specific antigen [PSA] | CPT/HCPCS: 51798; 99212 ==

== ENCOUNTER 2023-07-05 10:30 | Outpatient (AMB) | payer MEDICARE, MEDICAID, SELFPAY ==
--- NOTE | 2023-07-05 10:42 | A.OFFVIS_ITS ---
Intake Visit Reasons: 6m/PVR Intake Note: Patient is Present for Follow Up Urology Medication: Finasteride, Tamsulosin Antibiotic Allergies: None Blood Thinners: None PVR: 47 Allergies valproic acid [VALPROIC ACID] Allergy (Unknown, Verified 01/03/23 10:36) UNKNOWN Medication List - Last Reconciled 07/05/23 by Jeremi Jamison MD acetaminophen 650 mg PO Q4H PRN atorvastatin 40 mg PO DAILY calcitriol 0.25 mcg PO DAILY clozapine 100 mg PO BID clozapine 25 mg PO BID finasteride 5 mg PO DAILY 90 days lactulose 20 grams PO BID levothyroxine 50 mcg PO DAILY@0600 melatonin 3 mg PO BEDTIME multivitamin,tx-minerals 1 tab PO DAILY sennosides (senna) 8.6 mg PO Q24H PRN sennosides (senna) 17.2 mg PO BEDTIME tamsulosin 0.4 mg PO BEDTIME 90 days HPI Comments Details: Jarred is a [facility] resident. Is accompanied by caregiver. Able to answer questions - lower urinary tract symptoms - incomplete bladder emptying Significant improvement in PVR in office today PVR 50 cc Continues with combination therapy Refill provided Lower urinary tract symptoms Nocturia x1 Has urinary control Current medication tamsulosin 0.4 mg with finasteride Laboratories prior PSA was elevated as high as 4.4. - 04/24 2.8 Can continue with yearly evaluation [facility] Medical History Chronic kidney disease Dysphagia Cataract Social History Alcohol intake: unknown Patient Tobacco Use Status: Tobacco use Unknown Review of Systems Const Denies chills and Denies fever(s) Card Reports no additional complaints and Denies syncope Resp Denies cough GI Denies abdominal pain and Denies heartburn Reports as per HPI and Denies change in libido Neuro Denies syncope Psych Denies change in libido Endo Denies change in libido Physical Exam Const General: cooperative, healthy appearing, comfortable and no acute distress Orientation/consciousness: patient oriented x3 HEENT Face and sinus: Yes normal facial exam Mouth: moist mucous membranes Neck Neck: Yes normal visual inspection, Yes full ROM and Yes trachea midline Chest Chest palpation & inspection: normal inspection of the chest Resp Effort & Inspection: normal respiratory effort, able to speak in complete sentences and no respiratory distress GI Inspection: Yes normal to inspection Back/Spine/Pelvis Cervical Spine: normal cervical lordosis Thoracic/Lumbar Spine: thoracic and lumbar spine normal to inspection Skin General skin exam: no rashes or lesions noted Neuro General: patient oriented x3, gait normal, tone normal and moves all extremities Extrem General: Yes normal to inspection and Yes capillary refill normal Office Procedures Post Void Residual Post Residual Void Post Void Residual (PVR): 47 [id number] Void Residual by ultrasound Assessment & Plan Assessment & Plan (1) Elevated PSA: Code(s): R97.20 - Elevated prostate specific antigen [PSA] Category: Medical (2) BPH w urinary obs/LUTS: Code(s): N40.1 - Benign prostatic hyperplasia with lower urinary tract symptoms; N13.8 - Other obstructive and reflux uropathy Category: Medical Plan Twelve month follow-up Orders: Orders AMB Post Void Residual by ultrasound Today N13.8 - Other obstructive and reflux uropathy, N40.1 - Benign prostatic hyperplasia with lower urinary tract symptoms Prostate Specific Antigen 364 Days R97.20 - Elevated prostate specific antigen [PSA] Patient Instructions: Imaging studies, laboratory and physical exam results were discussed and reviewed in detail. No major barriers to patient understanding were identified. An opportunity to ask questions regarding the treatment plan was provided. All questions were answered. The patient expressed understanding and agreement with the above treatment plan. The patient is aware they should contact our office by phone for worsening of their current condition or the appearance of new urologic symptoms. Compliance is encouraged with any medications and followup testing that is ordered. It is a privilege to participate in the urologic care of your patient. If you have any questions or concerns regarding treatment for the above conditions, or other urologic issues, please do not hesitate to contact me. The office telephone contact is [phone]. This note is constructed using voice recognition software. While every effort has been made to ensure accuracy housing management representative errors may have been included. Yours sincerely, Dr Jeremi Jamison MD, [facility] - Urology Providers of Expert, Compassionate Care for the Genitourinary System Coding Level of Care Code Est Pt Level 4 (38785) Complex EM visit Add On G2211 Diagnoses Elevated PSA R97.20 BPH w urinary obs/LUTS N40.1; N13.8 CPT Codes Post Residual Void - PVR CPT Code: 30573-[id number] Void Residual by ultrasound ([id number])
== END 2023-07-05 11:16 | disposition home or self-care (01) ==
PROVIDERS: PCP Hospitalist; Visit Provider Urology
DX: R97.20 Elevated prostate specific antigen [PSA] (principal); N40.1 Benign prostatic hyperplasia with lower urinary tract symptoms; N13.8 Other obstructive and reflux uropathy
CPT/HCPCS: 99214; G2211

== ENCOUNTER → 2023-07-05 10:30 | Outpatient (BNVA) | payer MEDICARE, MEDICAID, SELFPAY | PROVIDERS: PCP Hospitalist; Visit Provider Urology | DX: R97.20 Elevated prostate specific antigen [PSA] (principal); N40.1 Benign prostatic hyperplasia with lower urinary tract symptoms; N13.8 Other obstructive and reflux uropathy | CPT/HCPCS: 51798; 99212 ==

== ENCOUNTER 2023-08-22 21:26 | Inpatient (IN) | payer MEDICARE, MEDICAID, SELFPAY ==
--- NOTE | ~2023-08-22 | US_ITS ---
EXAMINATION: US RETROPERITONEAL LIMITED (RENAL ONLY) CLINICAL INFORMATION: Acute renal insufficiency. COMPARISON: 09/13/2009 TECHNIQUE: Real-time imaging of the kidneys. FINDINGS: RIGHT KIDNEY: 9.6 x 4.5 x 4.1 cm (SAG x AP x TRV). The kidney is echogenic. Renal cortical thinning. No calculi or hydronephrosis. Upper pole cyst measures upper pole cyst measures 1.4 x 1.6 x 1.7 cm. Upper pole cyst measures 2.0 x 2.4 x 2.3 cm. LEFT KIDNEY: 7.9 x 4.2 x 4.2 cm (SAG x AP x TRV). The kidney is echogenic. Renal cortical thinning. No calculi or hydronephrosis. Lower pole cyst measures 2.2 x 1.7 x 2.1 cm. US/US renal BI IMPRESSION: Echogenic kidneys most likely representing chronic medical renal disease. Bilateral benign-appearing renal cysts for which no further routine imaging follow-up is needed.
[2023-08-22 21:34] VITALS: BP 129/74; PULSE 85; O2SAT 96; BMI 21.2
[2023-08-22 22:54] LABS: MANUAL DIFF FLAG NO
[2023-08-22 22:57] LABS: Basophils Percent Auto 0.2 % (0-2); Hematocrit 30.2 % (42.0-52.0); Hemoglobin 10.2 g/dl (14.0-18.0); Imm Gran Abs Auto 0.18 X10*3/uL (0.00-0.03); Imm Gran Pct Auto 1.6 % (0.0-0.4); Lymphocytes Absolute Auto 1.1 X10*3/uL (1.2-4.9); Lymphocytes Percent Auto 9.7 % (20-40); Mean Corpuscular HGB Conc 33.8 g/dl (31.0-36.0); Mean Corpuscular Hemoglobin 32.7 pg (27.0-33.0); Mean Corpuscular Volume 96.8 fL (80.0-98.0); Mean Platelet Volume 9.1 fL (9.4-12.4); Monocytes Absolute Auto 0.6 X10*3/uL (0.1-1.2); Monocytes Percent Auto 5.4 % (2-11); Neutrophils Absolute Auto 9.2 x10*3/uL (2.0-8.3); Neutrophils Percent Auto 83.1 % (45-73); Platelet Count 231 X10*3/uL (160-400); Red Blood Count 3.12 X10*6/uL (4.60-5.80); Red Cell Distribution Width 13.8 % (11.0-16.0); White Blood Count 11.1 X10*3/uL (4.8-10.8)
[2023-08-22 23:14] LABS: Alanine Aminotransferase 9 U/L (0-40); Albumin Level 3.8 g/dL (3.5-5.0); Alkaline Phosphatase 66 U/L (39-117); Anion Gap 16 (12-20); Aspartate Amino Transferase 9 U/L (5-37); Bilirubin Total 0.2 mg/dL (0.0-1.0); Blood Urea Nitrogen 72 mg/dL (9-16); Calcium 10.5 mg/dL (8.4-10.2); Carbon Dioxide 21 mmol/L (22-29); Chloride 116 mmol/L (96-108); Creatinine Clr Calc Pharmacy 12.3; Estimated Glomerular Filt Rate 11; Glucose Fasting 110 mg/dL (60-99); Lipase 33 U/L (8-78); Potassium 4.4 mmol/L (3.3-5.1); Sodium 149 mmol/L (135-145); Total Protein 6.8 g/dL (6.5-8.0)
[2023-08-22 23:18] LABS: B Type Natriuretic Peptide < 10 pg/mL (<100)
[2023-08-22 23:20] LABS: Troponin-I High Sensitivity 5.1 ng/L (<3.5-35.0)
--- NOTE | 2023-08-22 23:37 | PC.NURSE ---
MD Coronado aware of critical creatinine.
--- NOTE | 2023-08-22 23:39 | ED_ITS ---
HPI - General Adult General Chief complaint: General Medical Stated complaint: FROM, SNF COMING FOR IV FLUIDS Time Seen by Provider: 08/22/23 23:39 Source: patient Mode of arrival: EMS Limitations: other (Lacks insight as to why he is here in the emergency department) History of Present Illness ED Provider: Dr. David Coronado HPI narrative: 72-year-old male with a history of schizoaffective disorder, chronic kidney disease stage 4, hypothyroidism, dysphagia, hypertension, BPH, hyperlipidemia who was sent in from his nursing facility, [facility] for evaluation of abnormal labs. Patient was found to have a BUN of 70 with a creatinine of 5.31 and a sodium 149. The patient is an unreliable informant since he lacks insight as to why he has here in the emergency department. He had no complaints. He states that he is agitated and he does not want to be here in the hospital. There [facility] the [facility]'s oral intake or any symptoms such as nausea, vomiting or diarrhea. Related Data Home Medications ?Medication ?Instructions ?Recorded ?Confirmed atorvastatin 40 mg tablet 40 mg PO DAILY 05/24/20 07/05/23 calcitriol 0.25 mcg capsule 0.25 mcg PO DAILY 05/24/20 07/05/23 clozapine 100 mg tablet 100 mg PO BID 05/24/20 07/05/23 clozapine 25 mg tablet 25 mg PO BID 05/24/20 07/05/23 lactulose 10 gram/15 mL oral 20 g PO BID 05/24/20 07/05/23 solution levothyroxine 50 mcg tablet 50 mcg PO DAILY@0600 05/24/20 07/05/23 acetaminophen 325 mg tablet 650 mg PO Q4H PRN Pain 04/13/21 07/05/23 melatonin 3 mg tablet 3 mg PO BEDTIME 04/13/21 07/05/23 multivitamin,tx-minerals 1 tab PO DAILY 04/13/21 07/05/23 sennosides 8.6 mg tablet (senna) 8.6 mg PO Q24H PRN Constipation 04/13/21 07/05/23 sennosides 8.6 mg tablet (senna) 17.2 mg PO BEDTIME 04/13/21 07/05/23 Previous Rx's ?Medication ?Instructions ?Recorded finasteride 5 mg tablet 5 mg PO DAILY 90 days #90 tabs 05/03/24 tamsulosin 0.4 mg capsule 0.4 mg PO BEDTIME 90 days #90 caps 07/05/23 Allergies Allergy/AdvReac Type Severity Reaction Status Date / Time valproic acid [VALPROIC ACID] Allergy Unknown UNKNOWN Verified 08/22/23 21:38 Review of Systems 2 Review of Systems: Yes Unobtainable due to mental status [facility] Past Medical History Medical History Chronic kidney disease Dysphagia Cataract Social History Social History Alcohol intake: unknown Patient Tobacco Use Status: Tobacco use Unknown Smoked in Last 30 Days: No Use of substances other than those prescribed or required for medical reasons: No Advance Directives: No Advance Directives Information Provided: No Do you have a plan to hurt others: No Plan Physical Exam ED Vital Signs: Vital Signs - 24 hr 08/23/23 00:00 08/23/23 02:42 08/23/23 04:38 Temperature 98.0 F 97.9 F Pulse Rate 78 80 81 Respiratory Rate 18 17 14 Blood Pressure 157/84 H 159/84 H Pulse Oximetry 100 99 97 Oxygen Delivery Method Room Air Room Air Room Air BMI result Body Mass Index 21.2 Exam: General: Elderly male patient, oriented to person, lacks insight as to why he has here in the hospital, has no complaints Head: Normocephalic, atraumatic EENT: PERRL, Lids normal, sclera normal, conjunctiva normal, nose normal , ears normal, throat without erythema or exudates Neck: Supple, no adenopathy Lung: breath sounds symmetric, no wheezing, rales or rhonchi Chest: symmetric movement, nontender Heart: regular rate and rhythm, normal S1, S2 no murmurs or rubs Abdomen: soft, non-tender, nondistended, normal bowel sounds Back: no vertebral tenderness, no CVAT Extremities: no deformities, moves all extremities symmetrically Neuro: Awake, alert, oriented to person only, normal speech, cranial nerves intact, moves all extremities symmetrically Psych: Pleasant, cooperative Medications Administered Generic Name Dose Route Start Last Admin Trade Name Freq PRN Reason Stop Dose Admin Sodium Chloride 1,000 mls @ 999 mls/hr 08/23/23 04:20 08/23/23 04:39 Ns IV 08/23/23 05:20 999 mls/hr .Q1H1M STA Administration Discontinued Medications Generic Name Dose Route Start Last Admin Trade Name Nemo PRN Reason Stop Dose Admin Sodium Chloride 1,000 mls @ 999 mls/hr 08/22/23 23:46 08/23/23 02:09 Ns IV 08/23/23 00:46 Infused .Q1H1M STA Infusion Sodium Chloride 1,000 mls @ 999 mls/hr 08/22/23 23:47 08/23/23 02:09 Sodium Chloride 0.45 % IVCONT 08/23/23 00:47 Infused .Q1H1M ONE Infusion Medical Decision Making Medical Decision Making MDM Narrative: 72-year-old male with a history of schizoaffective disorder, chronic kidney disease stage 4, hypothyroidism, dysphagia, hypertension, BPH, hyperlipidemia who was sent in from his nursing facility, [facility] for evaluation of abnormal labs. Patient was found to have a BUN of 70 with a creatinine of 5.31 and a sodium 149. No other information was provided by the patient's nursing facility regarding symptoms such as poor oral intake, vomiting or diarrhea. Physical examination revealed the patient was oriented to person only lacks insight as to why he has here in the hospital. Exam was unremarkable Differential diagnosis: ?Includes but is not limited to volume depletion, dehydration, electrolyte abnormalities, anemia Following evaluation was ordered: CBC, CMP, lipase, urinalysis, BNP, troponin Course: 23:40 My independent interpretation the patient's laboratory evaluation is as follows: Normocytic anemia with an H&H of 10 and 30.2-this is chronic. WBC was elevated. Sodium elevated 149, chloride elevated 116, bicarb low 21. BUN creatinine elevated 72 and 4.99. These values are elevated compared to 04/13/2021 when his BUN was 54 in his creatinine was 3.90. LFTs were normal. Lipase was normal. Patient's presentation is consistent with volume depletion and dehydration causing prerenal acute kidney injury on top of his chronic kidney disease. Patient will be treated with normal saline and half-normal saline. I will repeat BNP after he completes his fluid treatment. 04:49 Repeat BMP revealed no improvement. Patient's sodium was 148, chloride was 117, bicarb was 19, BUN was 69 with a creatinine of 4.52. I ordered a 2 L of normal saline IV I did discuss over tiger text the patient's presentation with the covering hospitalist, Dr. Henao who accepted the patient onto the hospitalist service. Admission/Observation Consideration of admission/observation: Escalation of care including admission/observation considered Lab Data MDM Lab Attestation statement: I reviewed the patient's lab results. 08/22/23 22:27 08/23/23 03:07 Labs: Lab Results 08/22/23 08/23/23 Range/Units 22:27 03:07 WBC 11.1 H (4.8-10.8) X10*3/uL RBC 3.12 L (4.60-5.80) X10*6/uL Hgb 10.2 L (14.0-18.0) g/dl Hct 30.2 L (42.0-52.0) % MCV 96.8 (80.0-98.0) fL MCH 32.7 (27.0-33.0) pg MCHC 33.8 (31.0-36.0) g/dl RDW 13.8 (11.0-16.0) % Plt Count 231 D (160-400) X10*3/uL MPV 9.1 L (9.4-12.4) fL Immature Gran % (Auto) 1.6 H (0.0-0.4) % Neut % (Auto) 83.1 H (45-73) % Lymph % (Auto) 9.7 L (20-40) % [place] % (Auto) 5.4 (2-11) % Eos % (Auto) 0.0 (0-4) % Baso % (Auto) 0.2 (0-2) % Lymph # (Auto) 1.1 L (1.2-4.9) X10*3/uL [place] # (Auto) 0.6 (0.1-1.2) X10*3/uL Eos # (Auto) 0.0 (0.0-0.4) X10*3/uL Baso # (Auto) 0.0 (0.0-0.2) X10*3/uL Abs Immat Gran (auto) 0.18 H (0.00-0.03) X10*3/uL Absolute Neuts (auto) 9.2 H (2.0-8.3) x10*3/uL Absolute Nucleated RBC 0.000 (0.0-0.012) X10*3/uL Nucleated RBC % (auto) 0.0 (0.0-0.2) /100WBC Hold Blue Top SEE NOTE Sodium 149 H 148 H (135-145) mmol/L Potassium 4.4 3.8 (3.3-5.1) mmol/L Chloride 116 H 117 H (96-108) mmol/L Carbon Dioxide 21 L 19 L (22-29) mmol/L Anion Gap 16 16 (12-20) BUN 72 H 69 H (9-16) mg/dL Creatinine 4.99 H* 4.52 H* (0.5-1.4) mg/dL Estim Creat Clear Calc 12.3 13.6 Estimated GFR 11 13 Random Glucose 94 (60-115) mg/dL Fasting Glucose 110 H (60-99) mg/dL Calcium 10.5 H D 9.1 D (8.4-10.2) mg/dL Total Bilirubin 0.2 (0.0-1.0) mg/dL AST 9 (5-37) U/L ALT 9 (0-40) U/L Alkaline Phosphatase 66 (39-117) U/L Troponin I High Sens 5.1 (<3.5-35.0) ng/L B-Natriuretic Peptide < 10 (<100) pg/mL Total Protein 6.8 (6.5-8.0) g/dL Albumin 3.8 (3.5-5.0) g/dL Lipase 33 (8-78) U/L External Record Review External record reviewed: Outside ED record (snf notes) Chronic Conditions Patient?s care impacted by: Other (Chronic kidney disease) Discharge Plan Discharge Prescriptions: No Action sennosides [senna] 8.6 mg Tablet 8.6 mg PO Q24H PRN (Reason: Constipation) sennosides [senna] 8.6 mg Tablet 17.2 mg PO BEDTIME acetaminophen 325 mg Tablet 650 mg PO Q4H PRN (Reason: Pain) melatonin 3 mg Tablet 3 mg PO BEDTIME Thera M Tablet 1 tab PO DAILY levothyroxine 50 mcg tablet 50 mcg PO DAILY@0600 lactulose 10 gram/15 mL solution 20 g PO BID calcitriol 0.25 mcg capsule 0.25 mcg PO DAILY atorvastatin 40 mg tablet 40 mg PO DAILY clozapine 100 mg tablet 100 mg PO BID clozapine 25 mg tablet 25 mg PO BID tamsulosin 0.4 mg capsule 0.4 mg PO BEDTIME 90 Days Qty: 90 3RF finasteride 5 mg tablet 5 mg PO DAILY 90 Days Qty: 90 3RF Print Language: Malawian
[2023-08-23] VITALS (7 sets, daily range): BP systolic 151–174; BP diastolic 76–95; PULSE 76–82; RESP 13–18; TEMP 36–36.7; O2SAT 96–100; BMI 20.6
[2023-08-23] MEDS: Sodium Chloride 0.45 % 1,000 ML 999 ML IVCONT (00:25)
[2023-08-23] MEDS: 0.9 % Sodium Chloride 1,000 ML 999 ML IV ×2 (00:26→04:39)
[2023-08-23 03:25] LABS: Anion Gap 16 (12-20); Blood Urea Nitrogen 69 mg/dL (9-16); Calcium 9.1 mg/dL (8.4-10.2); Carbon Dioxide 19 mmol/L (22-29); Chloride 117 mmol/L (96-108); Creatinine Clr Calc Pharmacy 13.6; Estimated Glomerular Filt Rate 13; Glucose Random 94 mg/dL (60-115); Potassium 3.8 mmol/L (3.3-5.1); Sodium 148 mmol/L (135-145)
--- NOTE | 2023-08-23 05:19 | P.HPHOSP_ITS ---
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 Patient got routine labs done at outside facility and was found to have elevated creatinine and was sent to the ER. Patient denies any complaints at the time of my evaluation. No reports of poor p.o. intake, nausea, vomiting, diarrhea at outside facility. Patient is awake, alert and oriented to self and time but does not know why he has in the hospital. He is disoriented to place. He denies fever, chills, chest, palpitations, dysuria, abdominal pain nausea, vomiting, diarrhea. In the emergency department, creatinine was found to be elevated and patient was resuscitated with IV crystalloids. Review of Systems 2 Constitutional: Constitutional: Reports no additional constitutional complaints Cardiovascular: Cardiovascular: Reports no additional cardiovascular complaints Respiratory: Respiratory: Reports no additional respiratory complaints Gastrointestinal: Gastrointestinal: Reports no additional gastrointestinal complaints Genitourinary: Genitourinary: Reports no additional male genitourinary complaints [facility] Medical History Chronic kidney disease Dysphagia Cataract Pertinent family history: No family history of early CAD Social History Alcohol intake: unknown Patient Tobacco Use Status: Tobacco use Unknown Smoked in Last 30 Days: No Use of substances other than those prescribed or required for medical reasons: No Advance Directives: No Advance Directives Information Provided: No Do you have a plan to hurt others: No Plan Meds Allergies Allergy/AdvReac Type Severity Reaction Status Date / Time valproic acid [VALPROIC ACID] Allergy Unknown UNKNOWN Verified 08/22/23 21:38 Active Medications: Current Medications Sodium Chloride (Ns) 1,000 mls @ 999 mls/hr IV .Q1H1M STA Stop: 08/23/23 05:20 Last Admin: 08/23/23 04:39 Dose: 999 mls/hr Home Medications ?Medication ?Instructions ?Recorded ?Confirmed ?Last Taken ?Type atorvastatin 40 mg tablet 40 mg PO DAILY 05/24/20 07/05/23 Unknown History calcitriol 0.25 mcg capsule 0.25 mcg PO DAILY 05/24/20 07/05/23 Unknown History clozapine 100 mg tablet 100 mg PO BID 05/24/20 07/05/23 04/12/21 History clozapine 25 mg tablet 25 mg PO BID 05/24/20 07/05/23 04/12/21 History lactulose 10 gram/15 mL oral 20 g PO BID 05/24/20 07/05/23 Unknown History solution levothyroxine 50 mcg tablet 50 mcg PO DAILY@0600 05/24/20 07/05/23 Unknown History acetaminophen 325 mg tablet 650 mg PO Q4H PRN Pain 04/13/21 07/05/23 Unknown History melatonin 3 mg tablet 3 mg PO BEDTIME 04/13/21 07/05/23 Unknown History multivitamin,tx-minerals 1 tab PO DAILY 04/13/21 07/05/23 Unknown History sennosides 8.6 mg tablet (senna) 8.6 mg PO Q24H PRN Constipation 04/13/21 07/05/23 Unknown History sennosides 8.6 mg tablet (senna) 17.2 mg PO BEDTIME 04/13/21 07/05/23 Unknown History Physical Exam 2 Vital Signs and Narrative: Vital Signs: Last Vital Signs Temp 97.9 F 08/23/23 02:42 Pulse 81 08/23/23 04:38 Resp 14 08/23/23 04:38 BP 159/84 H 08/23/23 02:42 Pulse Ox 97 08/23/23 04:38 O2 Del Method Room Air 08/23/23 04:38 BMI result Body Mass Index 21.2 Middle-aged male lying in bed in no distress Neck supple, no JVD Regular rate and rhythm, S1-S2 heard Regular breath sounds bilaterally, no wheezing or crackles appreciated Abdomen soft nontender, no guarding, no rigidity Patient is awake, alert and oriented to self, time, disoriented to place, no focal motor weakness Psych: Normal mood No pedal edema Results Labs 08/22/23 22:27 08/23/23 03:07 Labs: Laboratory Results - last 24 hr 08/22/23 08/23/23 22:27 03:07 MCV 96.8 MCH 32.7 MCHC 33.8 RDW 13.8 Plt Count 231 D MPV 9.1 L Immature Gran % (Auto) 1.6 H Neut % (Auto) 83.1 H Lymph % (Auto) 9.7 L [place] % (Auto) 5.4 Eos % (Auto) 0.0 Baso % (Auto) 0.2 Lymph # (Auto) 1.1 L [place] # (Auto) 0.6 Eos # (Auto) 0.0 Baso # (Auto) 0.0 Abs Immat Gran (auto) 0.18 H Absolute Neuts (auto) 9.2 H Absolute Nucleated RBC 0.000 Nucleated RBC % (auto) 0.0 Hold Blue Top SEE NOTE Anion Gap 16 16 Estim Creat Clear Calc 12.3 13.6 Estimated GFR 11 13 Random Glucose 94 Fasting Glucose 110 H Calcium 10.5 H D 9.1 D Total Bilirubin 0.2 AST 9 ALT 9 Alkaline Phosphatase 66 Troponin I High Sens 5.1 B-Natriuretic Peptide < 10 Total Protein 6.8 Albumin 3.8 Lipase 33 Assessment and Plan (1) Acute kidney injury superimposed on chronic kidney disease: Status: Acute Plan This is a 72-year-old male with pertinent history of schizoaffective disorder, chronic kidney disease stage 4, hypothyroidism, 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 #. OLYA on CKD stage 4: Unclear etiology. Obtaining renal ultrasound to rule out postrenal etiology. UA pending. Resuscitated with IV crystalloids in the ER. Monitor creatinine and urine output. Avoid nephrotoxins. #. Schizoaffective disorder: Continue home mood stabilizers #. Hypothyroidism: On Synthroid #. Secondary hyperparathyroidism due to CKD: On calcitriol #. Mixed hyperlipidemia: On statin #. BPH: On finasteride and Flomax Med rec pending DVT prophylaxis: Heparin Full code Admit as inpatient and will require two night minimum hospital stay for monitoring of kidney function (as above), which is not possible in a lesser acute setting. Quality Stroke Does the patient have a stroke diagnosis?: No VTE Prior VTE?: No VTE Risk Level:: Medical - moderate - high VTE Device Contraindication: Treatment Not Indicated VTE Drug Contraindication: N/A - Med Ordered
[2023-08-23] MEDS: Heparin Sodium,Porcine 5,000 UNIT/ML VIAL 5000 UNIT SUBCUT ×2 (10:02→20:02)
--- NOTE | 2023-08-23 10:03 | PHA.MEDREC ---
Pharmacy Consult ? Medication Reconciliation Pharmacy has completed the medication reconciliation. Used list from [facility]. Spoke with nurse over the phone who confirmed last clozapine dose was 125mg @ 9AM on 08/21, he did not receive his 8PM dose yesterday. She confirmed that patient started 40mg of prednisone taper yesterday and is scheduled to take 40mg today and tomorrow. She confirmed he last took doxycycline yesterday at 5PM.
[2023-08-23] MEDS: 0.9 % Sodium Chloride Flush 3 ML SYRINGE IVFLUSH (10:04)
--- NOTE | 2023-08-23 10:24 | P.EN_ITS ---
Event Note Date of Service: 08/23/23 Event Note: admitted this morning, pt seen and examined, chart reviewed, med rec completed. he is admitted for dehydration, olya, hypernatemia. 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 OLYA on CKD stage -IVF, monitor BMP -Nephrology consult -US no obstruction, medical renal disease Hypernatremia/dehydration -IVF and follow BMP Schizoaffective disorder -resume clozaril Hypothyroidism -continuien Synthroid Secondary hyperparathyroidism due to CKD -continue calcitriol HLD--Lipitor BPH: On finasteride and Flomax DVT prophylaxis: Heparin Time Spent With Patient Time: Total time managing care of this patient today ___25_ minutes.
--- NOTE | 2023-08-23 11:34 | PC.NURSE ---
PO meds held due to concerns for safety of swallowing. Reached out to MD about holding PO meds and ordering swallow eval. Pt coughing after thin liquid intake, per [facility] paperwork pt is soft, cut up diet(bread ok) /thin liquids. Baseline at this time, this verse writer feels this is unsafe.
[2023-08-23] MEDS: Sodium Chloride 0.45 % 1,000 ML 100 ML IVCONT ×2 (11:48→20:02)
--- NOTE | 2023-08-23 13:30 | MHC.SL.SWA ---
Speech Pathologist Impression: Risk of aspiration, oropharyngeal dysphagia Dysphasia Diet Status: Downgrade to NDD3/HTL Liquid Consistency and Strategies for Safe Swallow: Liquid Intake Recommendation: Honey Thick Liquid Intake Strategies: Small Sips No Straws Solid Food Consistency: Dietary Recommendations: Chopped/Advanced (NDD3) Additional Modifications to Solid Foods: Recommend START on CHOPPED/ADVANCED (NDD3) diet with HONEY THICK liquids (no straws), pills to be administered WHOLE in PUREE. Patient is able to feed himself, but will require direct supervision at meal time as he evidences some impulsive feeding behaviors (big bites, taking quick consecutive sips). Cue patient as needed for slow pace, small bites/sips, alternating bite of food with sip of liquid. Oral Medication Intake: Whole with Puree Please contact the pharmacy regarding appropriate crushable or liquid drug formulations that are available whenever modified delivery is recommended. Compensatory Strategies and Precautions to be Taken for Safe Swallow: Sitting Upright (90 deg) No Straw Small Bites and Sips Alternate Liquids/Solids Rate of Ingestion Change Avoid Specific Foods Supervision While Eating and Drinking for Safe Swallow: Total Supervision (1:1) Foods to Avoid: Mixed consistencies; hard, sticky, or dry foods Swallowing Recommended Treatments: Compens. Strategy Educat. Recommendation for Speech: Inpatient Speech Therapy Comment: [employer] WORK[employer] will continue to follow to monitor tolerance and re-assess for potential upgrade if/when appropriate Frequency/Duration: Date Range for Service Req: Timeline to reassess: Site Planner Clinican/Clinical Fellow: No Supervisory Statement: I have reviewed and agree with the student/clinical fellow's documentation: N/A Speech Language Pathologist: Yolanda Orr M.A., CCC-[employer]ORY WORKER
[2023-08-23 14:58] LABS: Appearance Urine Clear; Color Urine Yellow; Glucose Urine UA Negative (Negative); Leukocyte Esterase Urine Negative (Negative); Nitrite Urine Negative (Negative); PH 5.5 (5.0-9.0); Urine Blood Negative (Negative); Urine Ketones Negative (Negative); Urine Protein Trace mg/dL (Neg-Trace)
[2023-08-23 15:00] LABS: Bacteria Urine None Seen (None Seen); Hyaline Casts Urine 0-2 /LPF (0-2); RBC Urine 0-2 /HPF (0-2); Squamous Epithelial Cell Urine 0-2 /HPF (0-2); WBC Urine 0-5 /HPF (0-5)
[2023-08-23] MEDS: cloZAPine 100 MG TABLET PO (20:03)
[2023-08-23] MEDS: Sennosides 8.6 MG TABLET 17.2 MG PO (20:03)
[2023-08-23] MEDS: Melatonin 3 MG TABLET PO (20:03)
[2023-08-23] MEDS: Tamsulosin HCL 0.4 MG CAPSULE PO (20:03)
[2023-08-23] MEDS: cloZAPine 25 MG TABLET PO (20:03)
[2023-08-24 03:00] VITALS: BP 129/61; PULSE 76; RESP 18; TEMP 36.6; O2SAT 98
[2023-08-24] MEDS: Levothyroxine Sodium 75 MCG TABLET PO (05:45)
[2023-08-24] MEDS: Sodium Chloride 0.45 % 1,000 ML 100 ML IVCONT (05:46)
[2023-08-24 06:57] LABS: MANUAL DIFF FLAG NO
[2023-08-24 07:05] LABS: Basophils Percent Auto 0.4 % (0-2); Eosinophils Absolute Auto 0.2 X10*3/uL (0.0-0.4); Eosinophils Percent Auto 2.4 % (0-4); Hematocrit 30.9 % (42.0-52.0); Hemoglobin 10.2 g/dl (14.0-18.0); Imm Gran Abs Auto 0.13 X10*3/uL (0.00-0.03); Imm Gran Pct Auto 1.3 % (0.0-0.4); Lymphocytes Absolute Auto 1.4 X10*3/uL (1.2-4.9); Mean Corpuscular Hemoglobin 32.5 pg (27.0-33.0); Mean Corpuscular Volume 98.4 fL (80.0-98.0); Mean Platelet Volume 9.1 fL (9.4-12.4); Monocytes Percent Auto 9.5 % (2-11); Neutrophils Absolute Auto 7.4 x10*3/uL (2.0-8.3); Neutrophils Percent Auto 72.4 % (45-73); Platelet Count 211 X10*3/uL (160-400); Red Blood Count 3.14 X10*6/uL (4.60-5.80); Red Cell Distribution Width 13.8 % (11.0-16.0); White Blood Count 10.2 X10*3/uL (4.8-10.8)
[2023-08-24 07:42] VITALS: BP 153/80; PULSE 84; RESP 12; TEMP 36.7; O2SAT 99
[2023-08-24 07:48] LABS: Anion Gap 16 (12-20); Blood Urea Nitrogen 60 mg/dL (9-16); Calcium 9.1 mg/dL (8.4-10.2); Carbon Dioxide 19 mmol/L (22-29); Chloride 116 mmol/L (96-108); Estimated Glomerular Filt Rate 14; Glucose Random 76 mg/dL (60-115); Potassium 3.8 mmol/L (3.3-5.1); Sodium 147 mmol/L (135-145)
[2023-08-24 08:00] VITALS: BP 153/80; PULSE 84; RESP 12; TEMP 36.7; O2SAT 99
[2023-08-24] MEDS: Multivitamin TABLET 1 TAB PO (08:02)
[2023-08-24] MEDS: calcitrioL 0.25 MCG CAPSULE PO (08:02)
[2023-08-24] MEDS: Atorvastatin Calcium 40 MG TABLET PO (08:02)
[2023-08-24] MEDS: Ferrous Sulfate 324 MG TABLET.DR PO (08:02)
[2023-08-24] MEDS: Heparin Sodium,Porcine 5,000 UNIT/ML VIAL 5000 UNIT SUBCUT ×2 (08:02→20:41)
[2023-08-24] MEDS: Ascorbic Acid 500 MG TABLET PO (08:02)
[2023-08-24] MEDS: cloZAPine 100 MG TABLET PO ×2 (08:02→20:41)
[2023-08-24] MEDS: cloZAPine 25 MG TABLET PO ×2 (08:02→20:41)
[2023-08-24] MEDS: Finasteride 5 MG TABLET PO (08:02)
[2023-08-24] MEDS: Dextrose 5 % 1,000 ML 125 ML IVCONT ×2 (09:09→18:04)
--- NOTE | 2023-08-24 14:19 | P.PNIM_ITS ---
Subjective Subjective Date of Service: 08/24/23 Interval History: No acute issues overnight; no behavioral issues Review of Systems Denies chest pain Denies shortness of breath Denies nausea vomiting diarrhea Denies fever chills Physical Exam 2 Vital Signs: Vital Signs: Last Vital Signs Temp 98.1 F 08/24/23 08:00 Pulse 84 08/24/23 08:00 Resp 12 08/24/23 08:00 BP 153/80 H 08/24/23 08:00 Pulse Ox 99 08/24/23 08:00 O2 Del Method Room Air 08/24/23 08:00 BMI result Body Mass Index 20.6 Const: Other: Awake alert no acute distress Resp: Other: Clear to auscultation bilaterally no rales rhonchi or wheezes Cardio: Other: No S4; positive S1-S2; no S3 murmurs rubs gallops GI: Other: Soft nontender nondistended normoactive bowel sounds Extrem: Other: No edema bilaterally Objective Data Active Medications Acetaminophen (Acetaminophen 325 Mg Tablet) 650 mg PO Q6H PRN PRN Reason: Pain, Mild (Pain Scale 1-3), fever or headache Acetaminophen (Acetaminophen 325 Mg Tablet) 650 mg PO Q4H PRN PRN Reason: Pain or fever Ascorbic Acid (Ascorbic Acid 500 Mg Tablet) 500 mg PO DAILY [facility] Last Admin: 08/24/23 08:02 Dose: 500 mg Documented By: TUCKER Atorvastatin Calcium (Atorvastatin Calcium 40 Mg Tablet) 40 mg PO DAILY [facility] Last Admin: 08/24/23 08:02 Dose: 40 mg Documented By: TUCKER Bisacodyl (Bisacodyl 10 Mg Supp.Rect) 10 mg [place] DAILY PRN PRN Reason: Constipation Calcitriol (Calcitriol 0.25 Mcg Capsule) 0.25 mcg PO DAILY [facility] Last Admin: 08/24/23 08:02 Dose: 0.25 mcg Documented By: TUCKER Calcium Carbonate (Calcium Carbonate 750 Mg Tab.Chew) 750 mg PO Q4H PRN PRN Reason: Heartburn Clozapine (Clozapine 25 Mg Tablet) 25 mg PO BID@899,1999 [facility] Last Admin: 08/24/23 08:02 Dose: 25 mg Documented By: TUCKER Clozapine (Clozapine 100 Mg Tablet) 100 mg PO BID@ [facility] Last Admin: 08/24/23 08:02 Dose: 100 mg Documented By: TUCKER Ferrous Sulfate (Ferrous Sulfate 324 Mg Tablet.Dr) 324 mg PO DAILY [facility] Last Admin: 08/24/23 08:02 Dose: 324 mg Documented By: TUCKER Finasteride (Finasteride 5 Mg Tablet) 5 mg PO DAILY [facility] Last Admin: 08/24/23 08:02 Dose: 5 mg Documented By: TUCKER Guaifenesin/Dextromethorphan (Guaifenesin Dm 100/10/5 Ml 5 Ml Syrup) 10 ml PO Q4H PRN PRN Reason: Cough Heparin Sodium (Porcine) (Heparin Sodium,Porcine 5,000 Unit/Ml Vial) 5,000 unit SUBCUT Q12H [facility] Last Admin: 08/24/23 08:02 Dose: 5,000 unit Documented By: TUCKER Dextrose (D5w) 1,000 mls @ 125 mls/hr IVCONT .Q8H [facility] Last Admin: 08/24/23 09:09 Dose: 125 mls/hr Documented By: TUCKER Levothyroxine Sodium (Levothyroxine Sodium 75 Mcg Tablet) 75 mcg PO DAILY@0600 [facility] Last Admin: 08/24/23 05:45 Dose: 75 mcg Documented By: SUSIE Magnesium Hydroxide (Milk Of Magnesia 30 Ml Oral.Susp) 30 ml PO DAILY PRN PRN Reason: Constipation Melatonin (Melatonin 3 Mg Tablet) 6 mg PO BEDTIME PRN PRN Reason: Insomnia Melatonin (Melatonin 3 Mg Tablet) 3 mg PO BEDTIME [facility] Last Admin: 08/23/23 20:03 Dose: 3 mg Documented By: SUSIE Multivitamins/Vitamin C (Multivitamin Tablet) 1 tab PO DAILY [facility] Last Admin: 08/24/23 08:02 Dose: 1 tab Documented By: TUCKER Senna (Sennosides 8.6 Mg Tablet) 8.6 mg PO Q24H PRN PRN Reason: Constipation Senna (Sennosides 8.6 Mg Tablet) 17.2 mg PO BEDTIME [facility] Last Admin: 08/23/23 20:03 Dose: 17.2 mg Documented By: SUSIE Sodium Chloride (0.9 % Sodium Chloride Flush 3 Ml Syringe) 3 ml IVFLUSH QSHIFT [facility] Last Admin: 08/24/23 08:08 Dose: Not Given Documented By: TUCKER Non-Admin Reason: IV Running Tamsulosin HCl (Tamsulosin Hcl 0.4 Mg Capsule) 0.4 mg PO BEDTIME [facility] Last Admin: 08/23/23 20:03 Dose: 0.4 mg Documented By: SUSIE Labs 08/24/23 05:49 08/24/23 05:49 Labs: Laboratory Results - last 24 hr 08/23/23 08/23/23 08/23/23 14:39 14:39 14:39 MCV MCH MCHC RDW Plt Count MPV Immature Gran % (Auto) Neut % (Auto) Lymph % (Auto) [place] % (Auto) Eos % (Auto) Baso % (Auto) Lymph # (Auto) [place] # (Auto) Eos # (Auto) Baso # (Auto) Abs Immat Gran (auto) Absolute Neuts (auto) Absolute Nucleated RBC Nucleated RBC % (auto) Anion Gap Estim Creat Clear Calc Estimated GFR Random Glucose Calcium Urine Color Yellow Cancelled Urine Appearance Clear Cancelled Urine pH 5.5 Ur Specific [place] Urine Protein Urine Glucose (UA) Urine Ketones Urine Blood Urine Nitrite Ur Leukocyte Esterase Urine RBC Urine WBC Ur Squamous Epith Cells Urine Bacteria Hyaline Casts 08/23/23 08/23/23 08/23/23 14:39 14:39 14:39 MCV MCH MCHC RDW Plt Count MPV Immature Gran % (Auto) Neut % (Auto) Lymph % (Auto) [place] % (Auto) Eos % (Auto) Baso % (Auto) Lymph # (Auto) [place] # (Auto) Eos # (Auto) Baso # (Auto) Abs Immat Gran (auto) Absolute Neuts (auto) Absolute Nucleated RBC Nucleated RBC % (auto) Anion Gap Estim Creat Clear Calc Estimated GFR Random Glucose Calcium Urine Color Urine Appearance Urine pH Cancelled Ur Specific [place] 1.010 Cancelled Urine Protein Trace Cancelled Urine Glucose (UA) Negative Urine Ketones Urine Blood Urine Nitrite Ur Leukocyte Esterase Urine RBC Urine WBC Ur Squamous Epith Cells Urine Bacteria Hyaline Casts 08/23/23 08/23/23 08/23/23 14:39 14:39 14:39 MCV MCH MCHC RDW Plt Count MPV Immature Gran % (Auto) Neut % (Auto) Lymph % (Auto) [place] % (Auto) Eos % (Auto) Baso % (Auto) Lymph # (Auto) [place] # (Auto) Eos # (Auto) Baso # (Auto) Abs Immat Gran (auto) Absolute Neuts (auto) Absolute Nucleated RBC Nucleated RBC % (auto) Anion Gap Estim Creat Clear Calc Estimated GFR Random Glucose Calcium Urine Color Urine Appearance Urine pH Ur Specific [place] Urine Protein Urine Glucose (UA) Cancelled Urine Ketones Negative Cancelled Urine Blood Negative Cancelled Urine Nitrite Negative Ur Leukocyte Esterase Urine RBC Urine WBC Ur Squamous Epith Cells Urine Bacteria Hyaline Casts 08/23/23 08/23/23 08/24/23 14:39 14:39 05:49 MCV 98.4 H MCH 32.5 MCHC 33.0 RDW 13.8 Plt Count 211 MPV 9.1 L Immature Gran % (Auto) 1.3 H Neut % (Auto) 72.4 Lymph % (Auto) 14.0 L [place] % (Auto) 9.5 Eos % (Auto) 2.4 Baso % (Auto) 0.4 Lymph # (Auto) 1.4 [place] # (Auto) 1.0 Eos # (Auto) 0.2 Baso # (Auto) 0.0 Abs Immat Gran (auto) 0.13 H Absolute Neuts (auto) 7.4 Absolute Nucleated RBC 0.000 Nucleated RBC % (auto) 0.0 Anion Gap 16 Estim Creat Clear Calc 14.0 Estimated GFR 14 Random Glucose 76 Calcium 9.1 Urine Color Urine Appearance Urine pH Ur Specific [place] Urine Protein Urine Glucose (UA) Urine Ketones Urine Blood Urine Nitrite Cancelled Ur Leukocyte Esterase Negative Cancelled Urine RBC 0-2 Urine WBC 0-5 Ur Squamous Epith Cells 0-2 Urine Bacteria None Seen Hyaline Casts 0-2 Assessment and Plan (1) Acute kidney injury superimposed on chronic kidney disease: Status: Acute (2) Hypernatremia: Status: Acute Plan This is a 72-year-old male with pertinent history of schizoaffective disorder, chronic kidney disease stage 4, hypothyroidism, 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 1.OLYA on CKD stage 4 -most likely secondary to volume depletion given hyponatremia -free water deficit calculated at approximately 2 L -D5W at 01:25 an hour -follow renals/divalent 2.Schizoaffective disorder -stable and well compensated -continue outpatient therapies -adjust as indicated 3.Hypothyroidism -continue Synthroid Heparin Full code Requires ongoing hospitalization for free were repletion to compensate hypernatremia Quality Stroke Does the patient have a stroke diagnosis?: No VTE Prior VTE?: No VTE Risk Level:: Medical - moderate - high VTE Device Contraindication: Treatment Not Indicated VTE Drug Contraindication: N/A - Med Ordered
[2023-08-24 16:00] VITALS: BP 159/77; PULSE 86; RESP 14; TEMP 36.2; O2SAT 97
[2023-08-24 19:22] VITALS: BP 161/81; PULSE 91; RESP 17; TEMP 36.4; O2SAT 95
[2023-08-24] MEDS: Sennosides 8.6 MG TABLET 17.2 MG PO (20:40)
[2023-08-24] MEDS: Tamsulosin HCL 0.4 MG CAPSULE PO (20:41)
[2023-08-24] MEDS: Melatonin 3 MG TABLET PO (20:41)
[2023-08-25] MEDS: Dextrose 5 % 1,000 ML 125 ML IVCONT (01:42)
[2023-08-25 03:32] VITALS: BP 150/81; PULSE 84; RESP 18; TEMP 36; O2SAT 96
[2023-08-25] MEDS: Levothyroxine Sodium 75 MCG TABLET PO (05:41)
[2023-08-25 05:57] LABS: MANUAL DIFF FLAG NO
[2023-08-25 06:08] LABS: Basophils Percent Auto 0.3 % (0-2); Eosinophils Absolute Auto 0.3 X10*3/uL (0.0-0.4); Eosinophils Percent Auto 2.6 % (0-4); Hematocrit 29.6 % (42.0-52.0); Hemoglobin 9.7 g/dl (14.0-18.0); Imm Gran Abs Auto 0.18 X10*3/uL (0.00-0.03); Imm Gran Pct Auto 1.9 % (0.0-0.4); Lymphocytes Absolute Auto 1.3 X10*3/uL (1.2-4.9); Lymphocytes Percent Auto 13.5 % (20-40); Mean Corpuscular HGB Conc 32.8 g/dl (31.0-36.0); Mean Corpuscular Hemoglobin 31.9 pg (27.0-33.0); Mean Corpuscular Volume 97.4 fL (80.0-98.0); Monocytes Absolute Auto 0.9 X10*3/uL (0.1-1.2); Monocytes Percent Auto 9.5 % (2-11); Neutrophils Absolute Auto 6.8 x10*3/uL (2.0-8.3); Neutrophils Percent Auto 72.2 % (45-73); Platelet Count 193 X10*3/uL (160-400); Red Blood Count 3.04 X10*6/uL (4.60-5.80); Red Cell Distribution Width 13.9 % (11.0-16.0); White Blood Count 9.5 X10*3/uL (4.8-10.8)
[2023-08-25 06:23] LABS: Alanine Aminotransferase 8 U/L (0-40); Albumin Level 3.3 g/dL (3.5-5.0); Alkaline Phosphatase 67 U/L (39-117); Anion Gap 15 (12-20); Aspartate Amino Transferase 11 U/L (5-37); Bilirubin Total 0.4 mg/dL (0.0-1.0); Blood Urea Nitrogen 55 mg/dL (9-16); Calcium 9.2 mg/dL (8.4-10.2); Carbon Dioxide 20 mmol/L (22-29); Chloride 113 mmol/L (96-108); Creatinine Clr Calc Pharmacy 14.2; Estimated Glomerular Filt Rate 14; Glucose Fasting 102 mg/dL (60-99); Potassium 3.6 mmol/L (3.3-5.1); Sodium 144 mmol/L (135-145); Total Protein 5.9 g/dL (6.5-8.0)
[2023-08-25 06:57] VITALS: BP 134/62; PULSE 81; RESP 17; TEMP 36.6; O2SAT 100
[2023-08-25] MEDS: Heparin Sodium,Porcine 5,000 UNIT/ML VIAL 5000 UNIT SUBCUT (08:23)
[2023-08-25] MEDS: cloZAPine 25 MG TABLET PO (08:23)
[2023-08-25] MEDS: Atorvastatin Calcium 40 MG TABLET PO (08:23)
[2023-08-25] MEDS: Multivitamin TABLET 1 TAB PO (08:23)
[2023-08-25] MEDS: Ferrous Sulfate 324 MG TABLET.DR PO (08:23)
[2023-08-25] MEDS: Ascorbic Acid 500 MG TABLET PO (08:24)
[2023-08-25] MEDS: Finasteride 5 MG TABLET PO (08:24)
[2023-08-25] MEDS: cloZAPine 100 MG TABLET PO (08:24)
[2023-08-25] MEDS: calcitrioL 0.25 MCG CAPSULE PO (08:24)
--- NOTE | 2023-08-25 10:50 | PM.DS ---
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 Patient got routine labs done at outside facility and was found to have elevated creatinine and was sent to the ER. Patient denies any complaints at the time of my evaluation. No reports of poor p.o. intake, nausea, vomiting, diarrhea at outside facility. Patient is awake, alert and oriented to self and time but does not know why he has in the hospital. He is disoriented to place. He denies fever, chills, chest, palpitations, dysuria, abdominal pain nausea, vomiting, diarrhea. In the emergency department, creatinine was found to be elevated and patient was resuscitated with IV crystalloids. Hospital Course Was admitted to general medical floor and started on IV volume repletion. Sodium was noted to be elevated to 149 and a free water deficit was calculated approximately 2 L. IV fluids were switched to dextrose in water for 2 L and on the day of discharge his sodium has normalized. His kidney function has trended downward and at this time I believe medically acceptable for transfer back to [facility]. I will see him within the week at this facility Time Attestation Discharge Coordination Time (in mins): 35 Quality: Safe Use of Opioids Does Pt have an Active Cancer Diagnosis on the Problem List?: No Quality: Stroke Does the patient have a stroke diagnosis?: No Physical Exam Vital Signs: Vital Signs: Last Vital Signs Temp 97.9 F 08/25/23 06:57 Pulse 81 08/25/23 06:57 Resp 17 08/25/23 06:57 BP 134/62 08/25/23 06:57 Pulse Ox 100 08/25/23 06:57 O2 Del Method Room Air 08/25/23 06:57 BMI result Body Mass Index 20.6 Const: Other: Awake alert no acute distress Resp: Other: Clear to auscultation bilaterally no rales rhonchi or wheezes Cardio: Other: No S4; positive S1-S2; no S3 murmurs rubs gallops GI: Other: Soft nontender nondistended normoactive bowel sounds Extrem: Other: No edema bilaterally DS: Data Data Completed and Pending Labs on day of discharge: Laboratory Results - last 24 hr 08/25/23 05:30 WBC 9.5 RBC 3.04 L Hgb 9.7 L Hct 29.6 L MCV 97.4 MCH 31.9 MCHC 32.8 RDW 13.9 Plt Count 193 MPV 9.0 L Immature Gran % (Auto) 1.9 H Neut % (Auto) 72.2 Lymph % (Auto) 13.5 L [place] % (Auto) 9.5 Eos % (Auto) 2.6 Baso % (Auto) 0.3 Lymph # (Auto) 1.3 [place] # (Auto) 0.9 Eos # (Auto) 0.3 Baso # (Auto) 0.0 Abs Immat Gran (auto) 0.18 H Absolute Neuts (auto) 6.8 Absolute Nucleated RBC 0.000 Nucleated RBC % (auto) 0.0 Sodium 144 Potassium 3.6 Chloride 113 H Carbon Dioxide 20 L Anion Gap 15 BUN 55 H Creatinine 4.19 H* Estim Creat Clear Calc 14.2 Estimated GFR 14 Fasting Glucose 102 H Calcium 9.2 Total Bilirubin 0.4 AST 11 ALT 8 Alkaline Phosphatase 67 Total Protein 5.9 L Albumin 3.3 L Discharge Plan Discharge Anticipated Discharge Date/Time: 08/25/23 10:44 Patient Disposition: Xfer [facility] Discharge Diagnosis: Acute kidney injury superimposed on chronic kidney disease stage 4 Referrals: Kofi Arora DO [Primary Care Provider] - 1 Week Discharge Medications: Continued sennosides [senna] 8.6 mg Tablet 8.6 mg PO Q24H PRN (Reason: Constipation) sennosides [senna] 8.6 mg Tablet 17.2 mg PO BEDTIME acetaminophen 325 mg Tablet 650 mg PO Q4H MDD 3000mg PRN (Reason: Pain or fever) melatonin 3 mg Tablet 3 mg PO BEDTIME multivitamin,tx-minerals Tablet 1 tab PO DAILY dextromethorphan-guaifenesin 10-100 mg/5 mL Liquid 10 ml PO Q4H PRN (Reason: Cough) prednisone 20 mg tablet See Taper PO DAILY Taper: Prednisone 60 mg daily for 3 Days and 0 Hour 40 mg daily for 3 Days and 0 Hour 20 mg daily for 3 Days and 0 Hour Rx [facility]: [facility] started 40mg on 08/22/23, scheduled to receive 40mg today and tomorrow. levothyroxine 75 mcg tablet 75 mcg PO DAILY ascorbic acid (vitamin C) [Vitamin C] 500 mg Tablet 500 mg PO DAILY bisacodyl 10 mg Suppository 10 mg OK DAILY PRN (Reason: Constipation) Rx Instructions: use if senna is ineffective ferrous sulfate 325 mg (65 mg iron) Tablet 325 mg PO DAILY Rx Instructions: avoid dairy products, tetracycline, etc. within 2 hours. pyrithione zinc 1 % Shampoo 1 appl TOPICAL Q12H PRN (Reason: dandruff irritation) Rx Instructions: wet hair then apply , let stand 5 mins then rinse. Repeat. lactulose 10 gram/15 mL solution 20 g PO BID calcitriol 0.25 mcg capsule 0.25 mcg PO DAILY atorvastatin 40 mg tablet 40 mg PO DAILY clozapine 100 mg tablet 100 mg PO BID@00,1999 Rx Instructions: 125mg BID clozapine 25 mg tablet 25 mg PO BID@899,1999 Rx Instructions: 125mg BID tamsulosin 0.4 mg capsule 0.4 mg PO BEDTIME 90 Days Qty: 90 3RF finasteride 5 mg tablet 5 mg PO DAILY 90 Days Qty: 90 3RF Discontinued doxycycline hyclate 100 mg tablet 100 mg PO BID Rx Instructions: x7 days. start date: 08/18/23 Discharge Orders: Discharge Order (Routine); Ordered 08/25/23 Ordered By: Kofi Arora Diet: Advance to usual diet Activity on Discharge: As tolerated Stand Alone Forms: Patient Portal Discharge page Print Language: French Care Plan Goals: Resume all previous medications as taken at [facility] prior to hospitalization Health Concerns: Encourage fluids Plan of Treatment: Resume previous plan of care Assessment: See discharge summary
--- NOTE | 2023-08-25 12:08 | MHC.CM.PN ---
PT IS A LTC RESIDENT OF [facility] AT [facility] CALLED PTS GUARDIAN, MYRA BEARD [phone] AND INFORMED HER PT WAS CLEARED TO RETUNR TO THE SNF TODAY PTS MEDICARE RIGHTS WERE REVIEWED AND A COPY WAS FAXED TO HER AT [phone] BLS TRANSPORT VIA [facility] WAS ARRANGED FOR 1330 HOURS [facility] AUTH#[id number]
--- OUTSIDE RECORDS SUMMARY | 2023-08-29 06:31 | XMS_ITS | Continuity of Care Document ---
Author Organization [facility] ter Address [address] [place] [address]- Care Team Providers Care Fourth Mate Name Role Phone Kofi Arora DO Primary Care Physician [phone] [place] [facility] [place]08[place] - 05/27/[address] [address]- [facility] Attending Physician: Enoc Blood MD Admitting Physician: Enoc Blood MD Allergies, Adverse Reactions, Alerts Substance Reaction Severity Status valproic acid Hives Active Medications atorvastatin 40 mg oral tablet 1 tablet = 40 mg, By Mouth, Daily at bedtime, 0 Refills, Maintenance, 03/24/15 14:18:17 Start Date: 03/24/15 Status: Ordered bisacodyl 5 mg oral delayed release tablet 1 tablet = 5 mg, By Mouth, Daily, 0 Refills, Maintenance, 03/24/15 14:22:13 Start Date: 03/24/15 Status: Ordered calcitriol 0.25 mcg oral capsule 1 capsule = 0.25 mcg, By Mouth, Daily, 0 Refills, Maintenance, 03/24/15 14:18:33 Start Date: 03/24/15 Status: Ordered chlorhexidine topical 0.12% liquid 15 mL = 0.018 Gm, By Mouth, 2 times a day, 0 Refills, Maintenance, 03/24/15 14:23:29 Start Date: 03/24/15 Status: Ordered clozapine 100 mg oral tablet 1 tablet = 100 mg, By Mouth, 3 times a day, 0 Refills, Maintenance, 03/24/15 14:20:04 Start Date: 03/24/15 Status: Ordered clozapine 50 mg oral tablet 1.5 tablet = 75 mg, By Mouth, 3 times a day, 0 Refills, Maintenance, 03/24/15 14:20:43 Start Date: 03/24/15 Status: Ordered gemfibrozil 600 mg oral tablet 1 tablet = 600 mg, By Mouth, 2 times a day, 0 Refills, Maintenance, 03/24/15 14:20:53 Start Date: 03/24/15 Status: Ordered lactulose 10 gm/15 ml oral syrup 15 mL = 10 Gm, By Mouth, Daily, 0 Refills, Maintenance, 03/24/15 14:21:28 Start Date: 03/24/15 Status: Ordered levothyroxine 0.05 mg oral tablet 1 tablet = 50 mcg, By Mouth, Daily, 0 Refills, Maintenance, 12/08/18 8:48:26 EDT Start Date: 12/08/18 Status: Ordered Melatonin Daily at bedtime, 0 Refills, Maintenance, 03/24/15 14:19:15 Start Date: 03/24/15 Status: Ordered NuLYTELY with Flavor Packs oral powder for reconstitution See Instructions, 240 mL By Mouth Every 15 minutes, # 4,000 mL, 0 Refills, Maintenance, 12/08/18 9:21:04 EDT, brand name only Start Date: 12/08/18 Status: Ordered NuLYTELY with Flavor Packs oral powder for reconstitution 240 mL, By Mouth, Every 10 minutes, # 4,000 mL, 0 Refills, Maintenance, 03/24/15 14:57:52 Start Date: 03/24/15 Status: Ordered propranolol 20 mg oral tablet 1 tablet = 20 mg, By Mouth, 2 times a day, 0 Refills, Maintenance, 03/24/15 14:21:52 Start Date: 03/24/15 Status: Ordered Senna 8.6 mg oral tablet 2 tablet = 17.2 mg, By Mouth, Daily at bedtime, PRN for constipation, # 100 tablet, 0 Refills, Maintenance, 03/24/15 14:19:25, Tablet Start Date: 03/24/15 Status: Ordered Therapeutic-M oral tablet 1 tablet, By Mouth, Daily, 0 Refills, Maintenance, 03/24/15 14:18:59 Start Date: 03/24/15 Status: Ordered Tylenol Caplet = 650 mg, By Mouth, Every 4 hours, 0 Refills, Maintenance, 03/24/15 14:23:01 Start Date: 03/24/15 Status: Ordered Problem List Condition Effective Dates Status Health Status Inform ant Encounter for screening colonoscopy(Confirmed) Active Tubular adenoma of colon(Confirmed) Active
== END 2023-08-25 13:51 | disposition home or self-care (01) | DRG 683 ==
LOC: HO.ED 08-23 04:59 → HO.EDOVER 08-23 05:22 → HO.S3 08-23 11:25
PROVIDERS: Admitting Provider Student in an Organized Health Care Education/Training Program; Emergency Provider Emergency Medicine Emergency Medical Services; PCP Hospitalist; Visit Provider Hospitalist
DX: N17.9 Acute kidney failure, unspecified (principal); E87.0 Hyperosmolality and hypernatremia; N18.4 Chronic kidney disease, stage 4 (severe); E86.0 Dehydration; E03.9 Hypothyroidism, unspecified; E78.2 Mixed hyperlipidemia; N25.81 Secondary hyperparathyroidism of renal origin; F25.9 Schizoaffective disorder, unspecified; N40.0 Benign prostatic hyperplasia without lower urinary tract symptoms; Z87.891 Personal history of nicotine dependence; Z79.890 Hormone replacement therapy; Z79.899 Other long term (current) drug therapy
CPT/HCPCS: 36415; 76775; 80048; 80053; 81001; 81003; 83690; 83880; 84484; 85025; 92610; 99285; J1644

== ENCOUNTER → 2023-08-23 05:18 | Outpatient (BNV) | payer MEDICARE, MEDICAID, SELFPAY | PROVIDERS: Admitting Provider Student in an Organized Health Care Education/Training Program; Emergency Provider Emergency Medicine Emergency Medical Services; PCP Hospitalist; Visit Provider Student in an Organized Health Care Education/Training Program | DX: N17.9 Acute kidney failure, unspecified (principal); N18.4 Chronic kidney disease, stage 4 (severe) | CPT/HCPCS: 99222; 99232; 99239; 99499 ==

== ENCOUNTER 2024-07-02 10:19 | Outpatient (AMB) | payer MEDICARE, MEDICAID, SELFPAY ==
--- NOTE | 2024-07-02 10:28 | MHC.OFFVIS ---
Intake Visit Reasons: 1y/PSA/PVR Intake Note: Patient is Present for 1 year follow up/PSA/PVR PSA:1.41 Urology Medication: Finasteride, Tamsulosin Antibiotic Allergies: None Blood Thinners: None PVR:349ml Allergies valproic acid [VALPROIC ACID] Allergy (Unknown, Verified 07/02/24 10:48) UNKNOWN HPI Comments Details: Jarred is a [facility] resident. Is accompanied by caregiver. Able to answer questions - lower urinary tract symptoms - incomplete bladder emptying Has high PVR today Unable to urinate Continues with combination therapy Refill provided PSA appropriate decline with finasteride In diaper does have limited mobility Only other management technique that may be useful as timed voiding. Would need to be placed on toilet every 3-4 hours to try to encourage emptying. Lower urinary tract symptoms Nocturia x1 Has urinary control Current medication tamsulosin 0.4 mg with finasteride Laboratories prior PSA was elevated as high as 4.4. - 04/24 2.8, 04/28 1.4 Can continue with yearly evaluation [facility] Medical History Chronic kidney disease Dysphagia Cataract Social History Household Members: Other Housing: Senior Care Do you presently have visiting nurse or other home services: No Alcohol intake: unknown Patient Tobacco Use Status: Former Tobacco user service: No Review of Systems Const Denies chills and Denies fever(s) Card Reports no additional complaints and Denies syncope Resp Denies cough GI Denies abdominal pain and Denies heartburn Reports as per HPI and Denies change in libido Neuro Denies syncope Psych Denies change in libido Endo Denies change in libido Physical Exam Const General: cooperative, healthy appearing, comfortable and no acute distress Orientation/consciousness: patient oriented x3 HEENT Face and sinus: Yes normal facial exam Mouth: moist mucous membranes Neck Neck: Yes normal visual inspection, Yes full ROM and Yes trachea midline Chest Chest palpation & inspection: normal inspection of the chest Resp Effort & Inspection: normal respiratory effort, able to speak in complete sentences and no respiratory distress GI Inspection: Yes normal to inspection Back/Spine/Pelvis Cervical Spine: normal cervical lordosis Thoracic/Lumbar Spine: thoracic and lumbar spine normal to inspection Skin General skin exam: no rashes or lesions noted Neuro General: patient oriented x3, gait normal, tone normal and moves all extremities Extrem General: Yes normal to inspection and Yes capillary refill normal Assessment & Plan Assessment & Plan (1) BPH w urinary obs/LUTS: Code(s): N40.1 - Benign prostatic hyperplasia with lower urinary tract symptoms; N13.8 - Other obstructive and reflux uropathy Category: Medical (2) Elevated PSA: Code(s): R97.20 - Elevated prostate specific antigen [PSA] Category: Medical Plan Refill medications Encourage timed voiding 12 month follow-up Medications: Refilled finasteride 5 mg PO DAILY 90 days 90 tabs 3RF N13.8 - Other obstructive and reflux uropathy, N40.1 - Benign prostatic hyperplasia with lower urinary tract symptoms tamsulosin 0.4 mg PO BEDTIME 90 days 90 caps 3RF N13.8 - Other obstructive and reflux uropathy, N40.1 - Benign prostatic hyperplasia with lower urinary tract symptoms Patient Instructions: This note is constructed using voice recognition software. While every effort has been made to ensure accuracy embedded software test engineer errors may have been included. Imaging studies, laboratory and physical exam results were discussed and reviewed in detail. No major barriers to patient understanding were identified. An opportunity to ask questions regarding the treatment plan was provided. All questions were answered. The patient expressed understanding and agreement with the above treatment plan. The patient is aware they should contact our office by phone for worsening of their current condition or the appearance of new urologic symptoms. Compliance is encouraged with any medications and followup testing that is ordered. It is a privilege to participate in the urologic care of your patient. If you have any questions or concerns regarding treatment for the above conditions, or other urologic issues, please do not hesitate to contact me. The office telephone contact is [phone]. Sincerely, Dr Jeremi Jamison MD, [facility] - Urology Compassionate Specialist Care for the Genitourinary System Coding Level of Care Code Est Pt Level 4 (39561) Complex EM visit Add On G2211 Diagnoses BPH w urinary obs/LUTS N40.1; N13.8 Elevated PSA R97.20
--- OUTSIDE RECORDS SUMMARY | 2024-07-02 11:46 | XMS_ITS | Encounter Summary ---
Author Organization [facility] Address [address] [place] [address] Care Team Providers Care Wood Heel Fitter Machine Name Role Phone Kofi Arora MD Primary Care Provider [phone] Encounter Details Date Type Department Care Team (Latest Contact Info) Description 02/13/2024 Lab Requisition [facility] Lab [address] [place] [address] Kofi Arora MD [address] [place] [address] Dr [address] [place], [place] Schizoaffective disorder, unspecified (CMS/HCC V24, CMS/HCC V28) Social History Tobacco Use Types Packs/Day Years Used Date Smoking Tobacco: Never Assessed Sex and Gender Information Value Date Recorded Sex Assigned at Not on file Legal Sex Male 4:11 AM EST Gender Identity Not on file Sexual Orientation Not on file documented as of this encounter Plan of Treatment Not on file documented as of this encounter Procedures Procedure Name Priority Date/Time Associated Diagnosis Comments CBC WITH AUTO DIFFERENTIAL Routine 02/13/2024 6:55 AM EST Schizoaffective disorder, unspecified (CMS/HCC) CBC AND DIFFERENTIAL Routine 02/13/2024 6:55 AM EST Schizoaffective disorder, unspecified (CMS/HCC) documented in this encounter Results * (ABNORMAL) CBC auto differential (02/13/2024 6:55 AM EST) WBC 8.0 4.8 - 10.8 K/[facility] LAB HEMETOLOGY METHOD 02/13/2024 7:55 AM EST [facility] LAB RBC 3.20(L) 4.50 - 5.50 M/[facility] LAB HEMETOLOGY METHOD 02/13/2024 7:55 AM EST [facility] LAB Hemoglobin 10.1(L) 13.5 - 17.5 g/dL LAB HEMETOLOGY METHOD 02/13/2024 7:55 AM [facility] LAB Hematocrit 31.5(L) 42.0 - 54.0 % LAB HEMETOLOGY METHOD 02/13/2024 7:55 AM [facility] LAB MCV 97.8 79.0 - 98.0 FL LAB HEMETOLOGY METHOD 02/13/2024 7:55 AM [facility] LAB MCH 31.4 27.0 - 32.0 pcg LAB HEMETOLOGY METHOD 02/13/2024 7:55 AM [facility] LAB MCHC 32.1 32.0 - 37.0 g/dL LAB HEMETOLOGY METHOD 02/13/2024 7:55 AM [facility] LAB RDW 15.4(H) 11.0 - 15.0 % LAB HEMETOLOGY METHOD 02/13/2024 7:55 AM [facility] LAB Platelets 215 130 - 400 K/mcL LAB HEMETOLOGY METHOD 02/13/2024 7:55 AM [facility] LAB MPV 9.4 7.0 - 11.0 FL LAB HEMETOLOGY METHOD 02/13/2024 7:55 AM [facility] LAB NRBC 0.0 <1.0 % LAB HEMETOLOGY METHOD 02/13/2024 7:55 AM [facility] LAB NRBC Absolute 0.00 <0.10 K/mcL LAB HEMETOLOGY METHOD 02/13/2024 7:55 AM [facility] LAB Neutrophils Relative 65.7 % LAB HEMETOLOGY METHOD 02/13/2024 7:55 AM [facility] LAB Lymphocytes Relative 18.2 % LAB HEMETOLOGY METHOD 02/13/2024 7:55 AM [facility] LAB Monocytes Relative 10.6 % LAB HEMETOLOGY METHOD 02/13/2024 7:55 AM EST [facility] LAB Eosinophils Relative 4.1 % LAB HEMETOLOGY METHOD 02/13/2024 7:55 AM EST [facility] LAB Basophils Relative 0.5 % LAB HEMETOLOGY METHOD 02/13/2024 7:55 AM [facility] LAB Immature Granulocytes Relative 0.9 % LAB HEMETOLOGY METHOD 02/13/2024 7:55 AM EST [facility] LAB Neutrophils Absolute 5.26 1.50 - 7.00 K/mcL LAB HEMETOLOGY METHOD 02/13/2024 7:55 AM [facility] LAB Lymphocytes Absolute 1.46 1.00 - 5.00 K/mcL LAB HEMETOLOGY METHOD 02/13/2024 7:55 AM [facility] LAB Monocytes Absolute 0.85 0.20 - 1.00 K/mcL LAB HEMETOLOGY METHOD 02/13/2024 7:55 AM EST [facility] LAB Eosinophils Absolute 0.33 0.00 - 0.50 K/mcL LAB HEMETOLOGY METHOD 02/13/2024 7:55 AM [facility] LAB Basophils Absolute 0.04 0.00 - 0.20 K/mcL LAB HEMETOLOGY METHOD 02/13/2024 7:55 AM [facility] LAB Immature Granulocytes Absolute 0.07(H) 0.00 - 0.03 K/mcL LAB HEMETOLOGY METHOD 02/13/2024 7:55 AM EST [facility] LAB Blood Venous blood specimen / Unknown 02/13/2024 6:55 AM EST 02/13/2024 7:37 AM EST us Kofi Arora MD LAB BLOOD ORDERABLES Final Resul t [facility] LAB [address] [place] [address], documented in this encounter Visit Diagnoses Diagnosis Schizoaffective disorder, unspecified ([facility] V24, [facility] V28) documented in this encounter Care Teams Wood Heel Fitter Machine Relationship Specialty Start Date End Date Kofi Arora MD [address] [place] [address] Dr [address] EDITH [place] PCP - General Internal Medicine 04/09/24 documented as of this encounter
--- OUTSIDE RECORDS SUMMARY | 2024-07-02 11:47 | XMS_ITS | Encounter Summary ---
Author Organization [facility] Address [address] [place] [address] Care Team Providers Care Color Weigher Name Role Phone Kofi Arora MD Primary Care Provider [phone] Encounter Details Date Type Department Care Team (Late st Contact Info) Description 02/27/2024 Lab Requisition [facility] Lab [address] [facility] [place] [address] Kofi Arora MD [address] [place] [address] Dr [address] [place], [place] Chronic kidney disease, unspecified Social History Tobacco Use Types Packs/Day Years [...] Procedure Name Priority Date/Time Associated Diagnosis Comments BASIC METABOLIC PANEL Routine 02/27/2024 6:51 AM EST Chronic kidney disease, unspecified documented in this encounter Results * (ABNORMAL) Basic metabolic panel (02/27/2024 6:51 AM EST) Sodium 143 133 - 145 mmol/L LAB CHEMISTRY METHOD 02/27/2024 7:58 AM EST [facility] LAB Potassium 3.9 3.5 - 5.5 mmol/L LAB CHEMISTRY METHOD 02/27/2024 7:58 AM EST [facility] LAB Chloride 111(H) 96 - 110 mmol/L LAB CHEMISTRY METHOD 02/27/2024 7:58 AM EST [facility] LAB CO2 23 21 - 32 mmol/L LAB CHEMISTRY METHOD 02/27/2024 7:58 AM EST [facility] LAB Anion Gap 9 3 - 11 LAB CHEMISTRY METHOD 02/27/2024 7:58 AM [facility] LAB Glucose 82 70 - 100 mg/dL LAB CHEMISTRY METHOD 02/27/2024 7:58 AM [facility] LAB BUN 64(H) 5 - 25 mg/dL LAB CHEMISTRY METHOD 02/27/2024 7:58 AM [facility] LAB Creatinine 4.93(H) 0.70 - 1.30 mg/dL LAB CHEMISTRY METHOD 02/27/2024 7:58 AM [facility] LAB eGFR 12(L) >=60 mL/min/1. 73m2 LAB CHEMISTRY METHOD 02/27/2024 7:58 AM [facility] LAB Comment:Calculation based on the??Chronic Kidney Disease Epidemiology Collaboration (CKD-EPI) equation refit??without adjustment for race. BUN/Creatinine Ratio 13.0 LAB CHEMISTRY METHOD 02/27/2024 7:58 AM [facility] LAB Calcium 9.8 8.5 - 10.5 mg/dL LAB CHEMISTRY METHOD 02/27/2024 7:58 AM [facility] LAB Blood Venous blood specimen / Unknown 02/27/2024 6:51 AM EST 02/27/2024 7:33 AM EST us Kofi Arora MD LAB BLOOD ORDERABLES Final Resul t [facility] LAB [address] [place] [address], documented in this encounter Visit Diagnoses Diagnosis Chronic kidney disease, unspecified documented in this encounter Care Teams Color Weigher Relationship Specialty Start Date End Date Kofi Arora MD [address] Naomi [place] PCP - General Internal Medicine 04/09/24 documented as of this encounter
--- OUTSIDE RECORDS SUMMARY | 2024-07-02 11:47 | XMS_ITS | Encounter Summary ---
Author Organization [employer] Address [address] [place] [address] Care Team Providers Care Waistline Joiner Name Role Phone Kofi Arora MD Primary Care Provider [phone] Encounter Details Date Type Department Care Team (Late st Contact Info) Description 06/30/2024 Lab Requisition [facility] - Main Lab [address] [facility] [employer] [address] Kofi Arora MD [address] [place] [address] [address] [place], [place] Benign prostatic hyperplasia without lower urinary tract symptoms Social History Tobacco Use Types Packs/Day Years [...] Procedure Name Priority Date/Time Associated Diagnosis Comments PROSTATE SPECIFIC ANTIGEN DIAGNOSTIC Routine 06/30/2024 6:49 AM EDT Benign prostatic hyperplasia without lower urinary tract symptoms documented in this encounter Results * Prostate specific antigen diagnostic (06/30/2024 6:49 AM EDT) PSA 1.41 0.00 - 4.00 ng/mL LAB CHEMISTRY METHOD 07/01/2024 9:[address] [facility] Blood Venous blood specimen / Unknown 06/30/2024 6:49 AM EDT 06/30/2024 8:[address] [facility] - 07/01/2024 9:33 PM EDT The Siemens Advia ILD Teleservicesaur Chemiluminescent Immunoassay is used. Results obtained with different assay methods or kits cannot be used interchangeably. Results cannot be interpreted as absolute evidence of the presence or absence of malignant disease. us Kofi Arora MD LAB BLOOD ORDERABLES Final Resul t [facility] LAB [address] [place] [address], documented in this encounter Visit Diagnoses Diagnosis Benign prostatic hyperplasia without lower urinary tract symptoms documented in this encounter Care Teams Waistline Joiner Relationship Specialty Start Date End Date Kofi Arora MD [address] [place] [address] Dr [address] [place], [place] PCP - General Internal Medicine 04/09/24 documented as of this encounter
--- OUTSIDE RECORDS SUMMARY | 2024-07-02 11:47 | XMS_ITS | Encounter Summary ---
Author Organization [facility] Address [address] [place] [address] Care Team Providers Care Sous Chef Kitchen Manager Name Role Phone Kofi Arora MD Primary Care Provider Encounter Details Date Type Department Care Team (Latest Contact Info) Description 05/13/2024 Lab Requisition [facility] Lab [address] [place] [address] Kofi Arora MD [address] [place] [address] Dr [address] [place], [place] Schizoaffective disorder, unspecified (CMS/HCC V24, CMS/HCC [...] Diagnosis Comments CBC WITH AUTO DIFFERENTIAL Routine 05/13/2024 6:40 AM EDT Schizoaffective disorder, unspecified (CMS/HCC) CBC AND DIFFERENTIAL Routine 05/13/2024 6:40 AM EDT Schizoaffective disorder, unspecified (CMS/HCC) documented in this encounter Results * (ABNORMAL) CBC auto differential (05/13/2024 6:40 AM EDT) WBC 8.0 4.8 - 10.8 K/[facility] LAB HEMETOLOGY METHOD 05/13/2024 8:02 AM EDT [facility] RBC 2.90(L) 4.50 - 5.50 M/[facility] LAB HEMETOLOGY METHOD 05/13/2024 8:02 AM [facility] LAB Hemoglobin 9.3(L) 13.5 - 17.5 g/dL LAB HEMETOLOGY METHOD 05/13/2024 8:02 AM [facility] LAB Hematocrit 29.8(L) 42.0 - 54.0 % LAB HEMETOLOGY METHOD 05/13/2024 8:02 AM [facility] LAB MCV 103.8(H) 79.0 - 98.0 FL LAB HEMETOLOGY METHOD 05/13/2024 8:02 AM [facility] LAB MCH 32.4(H) 27.0 - 32.0 pcg LAB HEMETOLOGY METHOD 05/13/2024 8:02 AM [facility] LAB MCHC 31.2(L) 32.0 - 37.0 g/dL LAB HEMETOLOGY METHOD 05/13/2024 8:02 AM [facility] LAB RDW 13.2 11.0 - 15.0 % LAB HEMETOLOGY METHOD 05/13/2024 8:02 AM [facility] LAB Platelets 171 130 - 400 K/mcL LAB HEMETOLOGY METHOD 05/13/2024 8:02 AM [facility] LAB MPV 9.7 7.0 - 11.0 FL LAB HEMETOLOGY METHOD 05/13/2024 8:02 AM [facility] LAB NRBC 0.0 <1.0 % LAB HEMETOLOGY METHOD 05/13/2024 8:02 AM [facility] LAB NRBC Absolute 0.00 <0.10 K/mcL LAB HEMETOLOGY METHOD 05/13/2024 8:02 AM [facility] LAB Neutrophils Relative 62.8 % LAB HEMETOLOGY METHOD 05/13/2024 8:02 AM [facility] LAB Lymphocytes Relative 19.9 % LAB HEMETOLOGY METHOD 05/13/2024 8:02 AM [facility] LAB Monocytes Relative 12.1 % LAB HEMETOLOGY METHOD 05/13/2024 8:02 AM EDT [facility] LAB Eosinophils Relative 3.6 % LAB HEMETOLOGY METHOD 05/13/2024 8:02 AM [facility] LAB Basophils Relative 0.6 % LAB HEMETOLOGY METHOD 05/13/2024 8:02 AM EDT [facility] LAB Immature Granulocytes Relative 1.0 % LAB HEMETOLOGY METHOD [facility]24 [facility] Neutrophils Absolute 4.99 1.50 - 7.00 K/mcL LAB HEMETOLOGY METHOD 05/13/2024 8:02 AM [facility] LAB Lymphocytes Absolute 1.58 1.00 - 5.00 K/mcL LAB HEMETOLOGY METHOD 05/13/2024 8:02 AM [facility] LAB Monocytes Absolute 0.96 0.20 - 1.00 K/mcL LAB HEMETOLOGY METHOD 05/13/2024 8:02 AM [facility] LAB Eosinophils Absolute 0.29 0.00 - 0.50 K/mcL LAB HEMETOLOGY METHOD 05/13/2024 8:02 AM [facility] LAB Basophils Absolute 0.05 0.00 - 0.20 K/mcL LAB HEMETOLOGY METHOD 05/13/2024 8:02 AM [facility] LAB Immature Granulocytes Absolute 0.08(H) 0.00 - 0.03 K/mcL LAB HEMETOLOGY METHOD 05/13/2024 8:02 AM [facility] LAB Blood Venous blood specimen / Unknown 05/13/2024 6:40 AM EDT 05/13/2024 7:36 AM EDT us Kofi Arora MD LAB BLOOD ORDERABLES Final Resul t [facility] [address] [place] [address], documented in this encounter Visit Diagnoses Diagnosis Schizoaffective disorder, unspecified (CMS/HCC V24, CMS/HCC V28) documented in this encounter Care Teams Sous Chef Kitchen Manager Relationship Specialty Start Date End Date Kofi Arora MD [address] [place] [address] Dr [address] [place] PCP - General Internal Medicine 04/09/24 documented as of this encounter
--- OUTSIDE RECORDS SUMMARY | 2024-07-02 11:47 | XMS_ITS | Encounter Summary ---
Author Organization [facility] Address [address] [place] [address] Care Team Providers Care Employment Case Manager Name Role Phone Kofi Arora MD Primary Care Provider [phone] Encounter Details Date Type Department Care Team (Late st Contact Info) Description 05/21/2024 Lab Requisition [facility] - Main Lab [address] [place] [address] Kofi Arora MD [address] [place] [address] [address] [place], [place] Chronic kidney disease, unspecified Social History [...] Procedure Name Priority Date/Time Associated Diagnosis Comments RICHARDSON URINE CULTURE TUBE Routine 05/20/2024 7:00 PM EDT Chronic kidney disease, unspecified MICROALBUMIN CREATININE URINE RATIO Routine 05/20/2024 7:00 PM EDT Chronic kidney disease, unspecified documented in this encounter Results * Richardson urine culture tube (05/20/2024 7:00 PM EDT) Extra Tube Hold for add-ons. 05/21/2024 9:01 AM EDT [facility] LAB Comment:Auto resulted. Urine Urine specimen obtained by clean catch procedure / Unknown 05/20/2024 7:00 PM EDT 05/21/2024 7:43 AM EDT us Kofi Arora MD LAB URINE ORDERABLES Final Resul t [facility] [address] [place] [address], [place] [phone] * (ABNORMAL) Microalbumin creatinine urine ratio (05/20/2024 7:00 PM EDT) Creatinine, Urine 34.0 mg/dL LAB CHEMISTRY METHOD 05/21/2024 10:47 AM EDT [facility] Microalb, Ur 122.0(H) 0.0 - 29.0 mg/L LAB CHEMISTRY METHOD 05/21/2024 10:47 AM EDT [facility] Microalb/Crea t Ratio 359(H) <30 mg/g creat LAB CHEMISTRY METHOD 05/21/2024 10:47 AM EDT [facility] Urine Urine specimen obtained by clean catch procedure / Unknown 05/20/2024 7:00 PM EDT 05/21/2024 7:43 AM EDT us Kofi Arora MD LAB URINE ORDERABLES Final Resul t Performing Organization Address [facility]/ZIP Co de Phone Number [facility] [address] [place] [address], [place] [phone] documented in this encounter Visit Diagnoses Diagnosis Chronic kidney disease, unspecified documented in this encounter Care Teams Employment Case Manager Relationship Specialty Start Date End Date Kofi Arora MD [address] [place] [address] Dr Naomi [facility] [place], [place] PCP - General Internal Medicine 04/09/24 documented as of this encounter
--- OUTSIDE RECORDS SUMMARY | 2024-07-02 11:47 | XMS_ITS | Encounter Summary ---
Author Organization [employer] Address [address] [place] [address] Care Team Providers Care Artificial Breeding Distributor Name Role Phone Kofi Arora MD Primary Care Provider [phone] Encounter Details Date Type Department Care Team (Latest Contact Info) Description 02/19/2024 Lab Requisition [facility] Lab [address] [place] [address] Kofi Arora MD [address] [place] [address] [address] [place], [place] Schizoaffective disorder, unspecified (CMS/HCC V24, CMS/HCC [...] Diagnosis Comments CBC WITH AUTO DIFFERENTIAL Routine 02/19/2024 6:36 AM EST Schizoaffective disorder, unspecified (CMS/HCC) CBC AND DIFFERENTIAL Routine 02/19/2024 6:36 AM EST Schizoaffective disorder, unspecified (CMS/HCC) documented in this encounter Results * (ABNORMAL) CBC auto differential (02/19/2024 6:36 AM EST) WBC 4.7(L) 4.8 - 10.8 K/[facility] LAB HEMETOLOGY METHOD 02/19/2024 7:56 AM EST [facility] LAB RBC 2.80(L) 4.50 - 5.50 M/[facility] LAB HEMETOLOGY METHOD 02/19/2024 7:56 AM EST [facility] LAB Hemoglobin 8.9(L) 13.5 - 17.5 g/dL LAB HEMETOLOGY METHOD 02/19/2024 7:56 AM [facility] Hematocrit 27.2(L) 42.0 - 54.0 % LAB HEMETOLOGY METHOD 02/19/2024 7:56 AM [facility] LAB MCV 96.5 79.0 - 98.0 FL LAB HEMETOLOGY METHOD 02/19/2024 7:56 AM [facility] LAB MCH 31.6 27.0 - 32.0 pcg LAB HEMETOLOGY METHOD 02/19/2024 7:56 AM [facility] LAB MCHC 32.7 32.0 - 37.0 g/dL LAB HEMETOLOGY METHOD 02/19/2024 7:56 AM [facility] LAB RDW 14.9 11.0 - 15.0 % LAB HEMETOLOGY METHOD 02/19/2024 7:56 AM [facility] LAB Platelets 173 130 - 400 K/mcL LAB HEMETOLOGY METHOD 02/19/2024 7:56 AM [facility] LAB MPV 9.3 7.0 - 11.0 FL LAB HEMETOLOGY METHOD 02/19/2024 7:56 AM [facility] LAB NRBC 0.0 <1.0 % LAB HEMETOLOGY METHOD 02/19/2024 7:56 AM [facility] LAB NRBC Absolute 0.00 <0.10 K/mcL LAB HEMETOLOGY METHOD 02/19/2024 7:56 AM [facility] LAB Neutrophils Relative 56.3 % LAB HEMETOLOGY METHOD 02/19/2024 7:56 AM [facility] LAB Lymphocytes Relative 22.4 % LAB HEMETOLOGY METHOD 02/19/2024 7:56 AM [facility] Monocytes Relative 14.1 % LAB HEMETOLOGY METHOD 02/19/2024 7:56 AM EST [facility] Eosinophils Relative 5.3 % LAB HEMETOLOGY METHOD 02/19/2024 7:56 AM EST [facility] Basophils Relative 0.4 % LAB HEMETOLOGY METHOD 02/19/2024 7:56 AM [facility] LAB Immature Granulocytes Relative 1.5 % LAB HEMETOLOGY METHOD 02/19/2024 7:56 AM EST [facility] LAB Neutrophils Absolute 2.64 1.50 - 7.00 K/mcL LAB HEMETOLOGY METHOD 02/19/2024 7:56 AM EST [facility] Lymphocytes Absolute 1.05 1.00 - 5.00 K/mcL LAB HEMETOLOGY METHOD 02/19/2024 7:56 AM [facility] Monocytes Absolute 0.66 0.20 - 1.00 K/mcL LAB HEMETOLOGY METHOD 02/19/2024 7:56 AM EST [facility] Eosinophils Absolute 0.25 0.00 - 0.50 K/mcL LAB HEMETOLOGY METHOD 02/19/2024 7:56 AM EST [facility] Basophils Absolute 0.02 0.00 - 0.20 K/mcL LAB HEMETOLOGY METHOD 02/19/2024 7:56 AM [facility] Immature Granulocytes Absolute 0.07(H) 0.00 - 0.03 K/mcL LAB HEMETOLOGY METHOD 02/19/2024 7:56 AM EST [facility] Blood Venous blood specimen / Unknown 02/19/2024 6:36 AM EST 02/19/2024 7:50 AM EST us Kofi Arora MD LAB BLOOD ORDERABLES Final Resul t [facility] [address] [place] [address], documented in this encounter Visit Diagnoses Diagnosis Schizoaffective disorder, unspecified ([facility] V24, [facility] V28) documented in this encounter Care Teams Artificial Breeding Distributor Relationship Specialty Start Date End Date Kofi Arora MD [address] [place] [address] Dr [address] EDITH Thur[place] PCP - General Internal Medicine 04/09/24 documented as of this encounter
--- OUTSIDE RECORDS SUMMARY | 2024-07-02 11:47 | XMS_ITS | Encounter Summary ---
Author Organization [employer] Address [address] [place] [address] Care Team Providers Care Transportation Director Name Role Phone Kofi Arora MD Primary Care Provider Encounter Details Date Type Department Care Team (Late st Contact Info) Description 02/14/2024 Lab Requisition [facility] - Main Lab [address] [facility] [place] [address] Kofi Arora MD [address] [place] [address] [address] [place], [place] Other fpc (current) drug therapy; Abnormal finding of blood chemistry, unspecified; Chronic kidney disease, unspecified Social History Tobacco [...] Procedure Name Priority Date/Time Associated Diagnosis Comments IRON AND TIBC Routine 02/14/2024 6:37 AM EST Other long distance operator (current) drug therapy Abnormal finding of blood chemistry, unspecified Chronic kidney disease, unspecified VITAMIN D 25 HYDROXY Routine 02/14/2024 6:37 AM EST Other fpc (current) drug therapy Abnormal finding of blood chemistry, unspecified Chronic kidney disease, unspecified TRANSFERRIN Routine 02/14/2024 6:37 AM EST Other long distance operator (current) drug therapy Abnormal finding of blood chemistry, unspecified Chronic kidney disease, unspecified PARATHYROID HORMONE INTACT Routine 02/14/2024 6:37 AM EST Other long distance operator (current) drug therapy Abnormal finding of blood chemistry, unspecified Chronic kidney disease, unspecified FERRITIN Routine 02/14/2024 6:37 AM EST Other fpc (current) drug therapy Abnormal finding of blood chemistry, unspecified Chronic kidney disease, unspecified RENAL FUNCTION PANEL Routine 02/14/2024 6:37 AM EST Other fpc (current) drug therapy Abnormal finding of blood chemistry, unspecified Chronic kidney disease, unspecified documented in this encounter Results * Transferrin (02/14/2024 6:37 AM EST) Transferrin 245 200 - 360 mg/dL 02/17/2024 4:05 AM EST [facility] Comment: Test performed at [facility], [address] , [place], [place] ??[address] ? [phone] Jaki Young MD, PhD - Mechanical Service Specialist Blood Venous blood specimen / Unknown 02/14/2024 6:37 AM EST 02/14/2024 7:08 AM EST us Kofi Arora MD LAB BLOOD ORDERABLES Final Resul t [facility] [address] [place] [address] * (ABNORMAL) Iron and TIBC (02/14/2024 6:37 AM EST) Iron 54 50 - 160 mcg/dL LAB CHEMISTRY METHOD 02/14/2024 8:08 AM EST [facility] TIBC 296 250 - 450 mcg/dL LAB CHEMISTRY METHOD 02/14/2024 8:08 AM EST [facility] Iron Saturation 18(L) 20 - 50 % LAB CHEMISTRY METHOD 02/14/2024 8:08 AM EST [facility] Blood Venous blood specimen / Unknown 02/14/2024 6:37 AM EST 02/14/2024 7:08 AM EST us Kofi Arora MD LAB BLOOD ORDERABLES Final Resul t [facility] [address] [place] [address], [place] [phone] * Vitamin D 25 hydroxy (02/14/2024 6:37 AM EST) [facility] [address] Vit D, 25-Hydroxy 41.4 30.0 - 80.0 ng/mL LAB CHEMISTRY METHOD 02/14/2024 11:52 AM EST [facility] Blood Venous blood specimen / Unknown 02/14/2024 6:37 AM EST 02/14/2024 7:08 AM EST us Kofi Arora MD LAB BLOOD ORDERABLES Final Resul t Performing Organization Address [facility] de Phone Number [facility] [address] [place] [address], [place] [phone] * Ferritin (02/14/2024 6:37 AM EST) [facility] [address] Ferritin 196 26 - 388 ng/mL LAB CHEMISTRY METHOD 02/14/2024 8:10 AM EST [facility] Blood Venous blood specimen / Unknown 02/14/2024 6:37 AM EST 02/14/2024 7:08 AM EST us Kofi Arora MD LAB BLOOD ORDERABLES Final Resul t Performing Organization Address [facility]/ZIP Co de Phone Number [facility] [address] [place] [address], [place] [phone] * (ABNORMAL) Renal function panel (02/14/2024 6:37 AM EST) [facility] [address] Sodium 142 133 - 145 mmol/L LAB CHEMISTRY METHOD 02/14/2024 8:09 AM EST [facility] Potassium 4.5 3.5 - 5.5 mmol/L LAB CHEMISTRY METHOD 02/14/2024 8:09 AM EST [facility] Chloride 109 96 - 110 mmol/L LAB CHEMISTRY METHOD 02/14/2024 8:09 AM [facility] CO2 21 21 - 32 mmol/L LAB CHEMISTRY METHOD 02/14/2024 8:09 AM [facility] Anion Gap 12(H) 3 - 11 LAB CHEMISTRY METHOD 02/14/2024 8:09 AM [facility] Glucose 92 70 - 100 mg/dL LAB CHEMISTRY METHOD 02/14/2024 8:09 AM [facility] BUN 68(H) 5 - 25 mg/dL LAB CHEMISTRY METHOD 02/14/2024 8:09 AM [facility] Creatinine 5.06(H) 0.70 - 1.30 mg/dL LAB CHEMISTRY METHOD 02/14/2024 8:09 AM [facility] eGFR 11(L) >=60 mL/min/1. 73m2 LAB CHEMISTRY METHOD 02/14/2024 8:09 AM [facility] Comment:Calculation based on the??Chronic Kidney Disease Epidemiology Collaboration (CKD-EPI) equation refit??without adjustment for race. BUN/Creatinine Ratio 13.4 LAB CHEMISTRY METHOD 02/14/2024 8:09 AM [facility] Albumin 3.9 3.2 - 5.0 g/dL LAB CHEMISTRY METHOD 02/14/2024 8:09 AM [facility] Calcium 9.7 8.5 - 10.5 mg/dL LAB CHEMISTRY METHOD 02/14/2024 8:09 AM [facility] Phosphorus 6.1(H) 2.5 - 4.5 mg/dL LAB CHEMISTRY METHOD 02/14/2024 8:09 AM [facility] Blood Venous blood specimen / Unknown 02/14/2024 6:37 AM EST 02/14/2024 7:08 AM EST us Kofi Arora MD LAB BLOOD ORDERABLES Final Resul t [facility] [address] [place] [address], [place] [phone] * (ABNORMAL) Parathyroid hormone intact (02/14/2024 6:37 AM EST) PTH 142.5(H) 18.5 - 88.0 pcg/mL LAB CHEMISTRY METHOD 02/14/2024 11:52 AM EST [facility] Blood Venous blood specimen / Unknown 02/14/2024 6:37 AM EST 02/14/2024 7:08 AM EST us Kofi Arora MD LAB BLOOD ORDERABLES Final Resul t [facility] [address] [place] [address], [place] [phone] documented in this encounter Visit Diagnoses Diagnosis Other fpc (current) drug therapy Abnormal finding of blood chemistry, unspecified Chronic kidney disease, unspecified documented in this encounter Care Teams Transportation Director Relationship Specialty Start Date End Date Kofi Arora MD [address] [place] [address] Dr [address] EDITH Thurston PCP - General Internal Medicine 04/09/24 documented as of this encounter
--- OUTSIDE RECORDS SUMMARY | 2024-07-02 11:47 | XMS_ITS | Encounter Summary ---
Author Organization [employer] Address [address] [place] [address] Care Team Providers Care Bottle Packer Name Role Phone Kofi Arora MD Primary Care Provider [phone] Encounter Details Date Type Department Care Team (Latest Contact Info) Description 01/22/[address] [facility] [address] [place] [address] Kofi Arora MD [address] [place] [address] [address] [place], [place] Schizoaffective disorder, unspecified (CMS/HCC V24, CMS/HCC [...] Diagnosis Comments CBC WITH AUTO DIFFERENTIAL Routine 01/22/2024 7:53 AM EST Schizoaffective disorder, unspecified (CMS/HCC) CBC AND DIFFERENTIAL Routine 01/22/2024 7:53 AM EST Schizoaffective disorder, unspecified (CMS/HCC) documented in this encounter Results * (ABNORMAL) CBC auto differential (01/22/2024 7:53 AM EST) WBC 7.6 4.8 - 10.8 K/[facility] LAB HEMETOLOGY METHOD 01/22/2024 9:12 AM EST [facility] RBC 3.60(L) 4.50 - 5.50 M/[facility] LAB HEMETOLOGY METHOD 01/22/2024 9:12 AM EST [facility] Hemoglobin 11.1(L) 13.5 - 17.5 g/dL LAB HEMETOLOGY METHOD 01/22/2024 9:12 AM [facility] Hematocrit 35.5(L) 42.0 - 54.0 % LAB HEMETOLOGY METHOD 01/22/2024 9:12 AM [facility] MCV 97.8 79.0 - 98.0 FL LAB HEMETOLOGY METHOD 01/22/2024 9:12 AM [facility] MCH 30.6 27.0 - 32.0 pcg LAB HEMETOLOGY METHOD 01/22/2024 9:12 AM [facility] MCHC 31.3(L) 32.0 - 37.0 g/dL LAB HEMETOLOGY METHOD 01/22/2024 9:12 AM [facility] RDW 14.6 11.0 - 15.0 % LAB HEMETOLOGY METHOD 01/22/2024 9:12 AM [facility] Platelets 192 130 - 400 K/mcL LAB HEMETOLOGY METHOD 01/22/2024 9:12 AM [facility] MPV 9.6 7.0 - 11.0 FL LAB HEMETOLOGY METHOD 01/22/2024 9:12 AM [facility] NRBC 0.0 <1.0 % LAB HEMETOLOGY METHOD 01/22/2024 9:12 AM [facility] NRBC Absolute 0.00 <0.10 K/mcL LAB HEMETOLOGY METHOD 01/22/2024 9:12 AM [facility] Neutrophils Relative 68.9 % LAB HEMETOLOGY METHOD 01/22/2024 9:12 AM [facility] Lymphocytes Relative 17.7 % LAB HEMETOLOGY METHOD 01/22/2024 9:12 AM [facility] Monocytes Relative 8.1 % LAB HEMETOLOGY METHOD 01/22/2024 9:12 AM [facility] Eosinophils Relative 4.1 % LAB HEMETOLOGY METHOD 01/22/2024 9:12 AM [facility] Basophils Relative 0.5 % LAB HEMETOLOGY METHOD 01/22/2024 9:12 AM [facility] Immature Granulocytes Relative 0.7 % LAB HEMETOLOGY METHOD 01/22/2024 9:12 AM EST [facility] Neutrophils Absolute 5.26 1.50 - 7.00 K/mcL LAB HEMETOLOGY METHOD 01/22/2024 9:12 AM EST [facility] Lymphocytes Absolute 1.35 1.00 - 5.00 K/mcL LAB HEMETOLOGY METHOD 01/22/2024 9:12 AM [facility] Monocytes Absolute 0.62 0.20 - 1.00 K/mcL LAB HEMETOLOGY METHOD 01/22/2024 9:12 AM EST [facility] Eosinophils Absolute 0.31 0.00 - 0.50 K/mcL LAB HEMETOLOGY METHOD 01/22/2024 9:12 AM [facility] Basophils Absolute 0.04 0.00 - 0.20 K/mcL LAB HEMETOLOGY METHOD 01/22/2024 9:12 AM [facility] Immature Granulocytes Absolute 0.05(H) 0.00 - 0.03 K/mcL LAB HEMETOLOGY METHOD 01/22/2024 9:12 AM EST [facility] Blood Venous blood specimen / Unknown 01/22/2024 7:53 AM EST 01/22/2024 8:54 AM EST us Kofi Arora MD LAB BLOOD ORDERABLES Final Resul t [facility] [address] [place] [address], documented in this encounter Visit Diagnoses Diagnosis Schizoaffective disorder, unspecified ([facility] V24, [facility] V28) documented in this encounter Care Teams Bottle Packer Relationship Specialty Start Date End Date Kofi Arora MD [address] [place] [address] Dr [address] EDITH Thurston PCP - General Internal Medicine 04/09/24 documented as of this encounter
--- OUTSIDE RECORDS SUMMARY | 2024-07-02 11:47 | XMS_ITS | Encounter Summary ---
Author Organization [employer] Address [address] [place] [address] Care Team Providers Care Md Allergy Immunology Name Role Phone Kofi Arora MD Primary Care Provider [phone] Encounter Details Date Type Department Care Team (Latest Contact Info) Description 06/10/2024 Lab Requisition [facility] [address] [place] [address] Kofi Arora MD [address] [place] [address] [address] [place], [place] Schizoaffective disorder, unspecified (CMS/HCC V24, CMS/HCC [...] Diagnosis Comments CBC WITH AUTO DIFFERENTIAL Routine 06/10/2024 7:20 AM EDT Schizoaffective disorder, unspecified CBC AND DIFFERENTIAL Routine 06/10/2024 7:20 AM EDT Schizoaffective disorder, unspecified documented in this encounter Results * (ABNORMAL) CBC auto differential (06/10/2024 7:20 AM EDT) WBC 8.4 4.8 - 10.8 K/[facility] LAB HEMETOLOGY METHOD 06/10/2024 8:13 AM [facility] RBC 3.20(L) 4.50 - 5.50 M/[facility] LAB HEMETOLOGY METHOD 06/10/2024 8:13 AM [facility] Hemoglobin 9.9(L) 13.5 - 17.5 g/dL LAB HEMETOLOGY METHOD 06/10/2024 8:13 AM [facility] Hematocrit 31.2(L) 42.0 - 54.0 % LAB HEMETOLOGY METHOD 06/10/2024 8:13 AM [facility] MCV 98.4(H) 79.0 - 98.0 FL LAB HEMETOLOGY METHOD 06/10/2024 8:13 AM [facility] MCH 31.2 27.0 - 32.0 pcg LAB HEMETOLOGY METHOD 06/10/2024 8:13 AM [facility] MCHC 31.7(L) 32.0 - 37.0 g/dL LAB HEMETOLOGY METHOD 06/10/2024 8:13 AM [facility] RDW 12.8 11.0 - 15.0 % LAB HEMETOLOGY METHOD 06/10/2024 8:13 AM [facility] Platelets 216 130 - 400 K/mcL LAB HEMETOLOGY METHOD 06/10/2024 8:13 AM [facility] MPV 8.9 7.0 - 11.0 FL LAB HEMETOLOGY METHOD 06/10/2024 8:13 AM [facility] NRBC 0.0 <1.0 % LAB HEMETOLOGY METHOD 06/10/2024 8:13 AM [facility] NRBC Absolute 0.00 <0.10 K/mcL LAB HEMETOLOGY METHOD 06/10/2024 8:13 AM [facility] Neutrophils Relative 67.1 % LAB HEMETOLOGY METHOD 06/10/2024 8:13 AM [facility] Lymphocytes Relative 14.6 % LAB HEMETOLOGY METHOD 06/10/2024 8:13 AM [facility] Monocytes Relative 11.8 % LAB HEMETOLOGY METHOD 06/10/2024 8:13 AM EDT [facility] Eosinophils Relative 4.4 % LAB HEMETOLOGY METHOD 06/10/2024 8:13 AM [facility] Basophils Relative 0.7 % LAB HEMETOLOGY METHOD 06/10/2024 8:13 AM [facility] Immature Granulocytes Relative 1.4 % LAB HEMETOLOGY METHOD 06/10/2024 8:13 AM EDT [facility] Neutrophils Absolute 5.64 1.50 - 7.00 K/mcL LAB HEMETOLOGY METHOD 06/10/2024 8:13 AM T [facility] Lymphocytes Absolute 1.23 1.00 - 5.00 K/mcL LAB HEMETOLOGY METHOD 06/10/2024 8:13 AM [facility] Monocytes Absolute 0.99 0.20 - 1.00 K/mcL LAB HEMETOLOGY METHOD 06/10/2024 8:13 AM EDT [facility] Eosinophils Absolute 0.37 0.00 - 0.50 K/mcL LAB HEMETOLOGY METHOD 06/10/2024 8:13 AM [facility] Basophils Absolute 0.06 0.00 - 0.20 K/mcL LAB HEMETOLOGY METHOD 06/10/2024 8:13 AM [facility] Immature Granulocytes Absolute 0.12(H) 0.00 - 0.03 K/mcL LAB HEMETOLOGY METHOD 06/10/2024 8:13 AM T [facility] Blood Venous blood specimen / Unknown 06/10/2024 7:20 AM EDT 06/10/2024 7:51 AM EDT us Kofi Arora MD LAB BLOOD ORDERABLES Final Resul t [facility] [address] [place] [address], [place] [phone] documented in this encounter Visit Diagnoses Diagnosis Schizoaffective disorder, unspecified (CMS/[facility] V24, [facility] V28) documented in this encounter Care Teams Md Allergy Immunology Relationship Specialty Start Date End Date Kofi Arora MD [address] [place] [address] Dr [address] EDITH Thurston PCP - General Internal Medicine 04/09/24 documented as of this encounter
--- OUTSIDE RECORDS SUMMARY | 2024-07-02 11:47 | XMS_ITS | Clinical Summary ---
Author Organization 299 [facility] Address [address] [place] [address] Phone Care Team Providers Care Associate Material Handler Name Role Phone Kofi Arora MD Primary Care Provider [phone] Encounters Date Type Department Care Team Description 06/30/2024 Lab Requisition [facility] [address] [place] [phone] Kofi Arora MD Benign prostatic hyperplasia without lower urinary tract symptoms 06/12/2024 Lab Requisition [facility] [address] [place] [phone] Physician, Pcp Unknown Adrenogenital disorder, unspecified (CMS/HCC V24); Chronic kidney disease, stage 5 (CMS/HCC V24, CMS/HCC V28); Hypothyroidism, unspecified 06/10/2024 Lab Requisition [facility] [address] [place] [phone] Kofi Arora MD Schizoaffective disorder, unspecified (CMS/HCC V24, CMS/HCC V28) 05/21/2024 Lab Requisition [facility] [address] [place] [phone] Kofi Arora MD Chronic kidney disease, unspecified 05/14/2024 Lab Requisition [facility] [address] [place] [phone] Kofi Arora MD Chronic kidney disease, stage 5 (CMS/HCC V24, CMS/HCC V28) 05/13/2024 Lab Requisition [facility] [address] [place] [phone] Kofi Arora MD Schizoaffective disorder, unspecified (CMS/HCC V24, [facility] V28) 05/05/2024 Lab Requisition [facility] [address] [place] [phone] Kofi Arora MD Schizoaffective disorder, unspecified ([facility] V24, [facility] V28); Hyperlipidemia, unspecified; Hypothyroidism, unspecified 04/15/2024 Lab Requisition [facility] [address] [place] [phone] Kofi Arora MD Schizoaffective disorder, unspecified ([facility] V24, [facility] V28) 04/09/2024 Lab Requisition [facility] [address] [place] [phone] Kofi Arora MD Chronic kidney disease, stage 4 (severe) ([facility] V24, [facility] V28); Schizoaffective disorder, unspecified ([facility] V24, [facility] V28) from Last 3 Months Social History Tobacco Use Types Packs/Day Years Used Date Smoking Tobacco: Never Assessed Sex and Gender Information Value Date Recorded Sex Assigned at Not on file Legal Sex Male 4:11 AM EST Gender Identity Not on file Sexual Orientation Not on file Plan of Treatment Health Maintenance Due Date Last Done Comments DTaP,Tdap,and Td Vaccines (1 - Tdap) 09/13/1967 Pneumococcal Vaccine: 50+ Years (1 of 1 - PCV) 1998 Zoster Vaccines (1 of 2) 1998 Abdominal Aortic Aneurysm (AAA) Screen 02/04/2022 Colorectal Cancer Screening: Colonoscopy 02/04/2022 Depression Screening 02/04/2022 Falls Risk Assessment 02/04/2022 Hepatitis C Screening 02/04/2022 Medicare Annual Wellness Visit 02/04/2022 Social Influencers of Health Screening 02/04/2022 RSV Immunization Adult Patients (1 - 1-dose 75+ series) 09/13/2023 COVID-19 Vaccine ( - 2023- season) 2023 Influenza Vaccine (Season Ended) 2024 Hypertension/CHF/CAD Annual BMP Blood Test 06/12/2025 06/12/2024, 05/14/2024, 05/05/2024, Additional history exists Cholesterol Screening (Lipid Panel) 05/05/2029 05/05/2024 HIB Vaccines Aged Out No longer eligi ble based on patient's age to complete this topic HPV Vaccines Aged Out No longer eligi ble based on patient's age to complete this topic Hepatitis A Vaccines Aged Out No long er eligible based on patient's age to complete this topic Hepatitis B Vaccines Aged Out No long er eligible based on patient's age to complete this topic IPV Vaccines Aged Out No longer eligi ble based on patient's age to complete this topic MMR Vaccines Aged Out No longer eligi ble based on patient's age to complete this topic Meningococcal ACWY Vaccine Aged Out N o longer eligible based on patient's age to complete this topic Meningococcal B Vaccine Aged Out No l onger eligible based on patient's age to complete this topic RSV Immunization Patients Under 20 months Aged Out No longer eligible based on patient's age to complete this topic Varicella Vaccines Aged Out No longer eligible based on patient's age to complete this topic Procedures Procedure Name Priority Date/Time Associated Diagnosis Comments PROSTATE SPECIFIC ANTIGEN DIAGNOSTIC Routine 06/30/2024 6:49 AM EDT Benign prostatic hyperplasia without lower urinary tract symptoms CBC WITH AUTO DIFFERENTIAL Routine 06/12/2024 5:48 PM EDT Adrenogenital disorder, unspecified (CMS/HCC V24) Chronic kidney disease, stage 5 (CMS/HCC V24, CMS/HCC V28) Hypothyroidism, unspecified THYROXINE FREE Routine 06/12/2024 5:48 PM EDT Adrenogenital disorder, unspecified (CMS/HCC V24) Chronic kidney disease, stage 5 (CMS/HCC V24, CMS/HCC V28) Hypothyroidism, unspecified CBC AND DIFFERENTIAL Routine 06/12/2024 5:48 PM EDT Adrenogenital disorder, unspecified (CMS/HCC V24) Chronic kidney disease, stage 5 (CMS/HCC V24, CMS/HCC V28) Hypothyroidism, unspecified COMPREHENSIVE METABOLIC PANEL Routine 06/12/2024 5:48 PM EDT Adrenogenital disorder, unspecified (CMS/HCC V24) Chronic kidney disease, stage 5 (CMS/HCC V24, CMS/HCC V28) Hypothyroidism, unspecified CBC WITH AUTO DIFFERENTIAL Routine 06/10/2024 7:20 AM EDT Schizoaffective disorder, unspecified CBC AND DIFFERENTIAL Routine 06/10/2024 7:20 AM EDT Schizoaffective disorder, unspecified RICHARDSON URINE CULTURE TUBE Routine 05/20/2024 7:00 PM EDT Chronic kidney disease, unspecified MICROALBUMIN CREATININE URINE RATIO Routine 05/20/2024 7:00 PM EDT Chronic kidney disease, unspecified LAVENDER - EDTA Routine 05/14/2024 7:13 AM EDT Chronic kidney disease, stage 5 (CMS/HCC) VITAMIN D 25 HYDROXY Routine 05/14/2024 7:13 AM EDT Chronic kidney disease, stage 5 (CMS/HCC) PARATHYROID HORMONE INTACT Routine 05/14/2024 7:13 AM EDT Chronic kidney disease, stage 5 (CMS/HCC) RENAL FUNCTION PANEL Routine 05/14/2024 7:13 AM EDT Chronic kidney disease, stage 5 (CMS/HCC) CBC WITH AUTO DIFFERENTIAL Routine 05/13/2024 6:40 AM EDT Schizoaffective disorder, unspecified (CMS/HCC) CBC AND DIFFERENTIAL Routine 05/13/2024 6:40 AM EDT Schizoaffective disorder, unspecified (CMS/HCC) CBC WITH AUTO DIFFERENTIAL Routine 05/05/2024 6:36 AM EST Schizoaffective disorder, unspecified (CMS/HCC) Hyperlipidemia, unspecified Hypothyroidism, unspecified THYROXINE FREE Routine 05/05/2024 6:36 AM EST Schizoaffective disorder, unspecified (CMS/HCC) Hyperlipidemia, unspecified Hypothyroidism, unspecified CBC AND DIFFERENTIAL Routine 05/05/2024 6:36 AM EST Schizoaffective disorder, unspecified (CMS/HCC) Hyperlipidemia, unspecified Hypothyroidism, unspecified LIPID PANEL WITH REFLEX TO DIRECT LDL Routine 05/05/2024 6:36 AM EST Schizoaffective disorder, unspecified (CMS/HCC) Hyperlipidemia, unspecified Hypothyroidism, unspecified BASIC METABOLIC PANEL Routine 05/05/2024 6:36 AM EST Schizoaffective disorder, unspecified (CMS/HCC) Hyperlipidemia, unspecified Hypothyroidism, unspecified CBC WITH AUTO DIFFERENTIAL Routine 04/15/2024 6:47 AM EST Schizoaffective disorder, unspecified (CMS/HCC) CBC AND DIFFERENTIAL Routine 04/15/2024 6:47 AM EST Schizoaffective disorder, unspecified (CMS/HCC) CBC WITH AUTO DIFFERENTIAL Routine 04/09/2024 6:52 AM EST Chronic kidney disease, stage 4 (severe) (CMS/HCC) Schizoaffective disorder, unspecified (CMS/HCC) CLOZAPINE Routine 04/09/2024 6:52 AM EST Chronic kidney disease, stage 4 (severe) (CMS/HCC) Schizoaffective disorder, unspecified (CMS/HCC) BASIC METABOLIC PANEL Routine 04/09/2024 6:52 AM EST Chronic kidney disease, stage 4 (severe) (CMS/HCC) Schizoaffective disorder, unspecified (CMS/HCC) CBC AND DIFFERENTIAL Routine 04/09/2024 6:52 AM EST Chronic kidney disease, stage 4 (severe) (CMS/HCC) Schizoaffective disorder, unspecified (CMS/HCC) from Last 3 Months Results * Prostate specific antigen diagnostic (06/30/2024 6:49 AM EDT) PSA 1.41 0.00 - 4.00 ng/mL LAB CHEMISTRY METHOD 07/01/2024 9:33 PM EDT [facility] Blood Venous blood specimen / Unknown 06/30/2024 6:49 AM EDT 06/30/2024 8:08 AM EDT Narrative [facility] - 07/01/2024 9:33 PM EDT The Siemens Advia Centaur Chemiluminescent Immunoassay is used. Results obtained with different assay methods or kits cannot be used interchangeably. Results cannot be interpreted as absolute evidence of the presence or absence of malignant disease. us Kofi Arora MD LAB BLOOD ORDERABLES Final Resul t [facility] [address] [place] [address], [place] [phone] * (ABNORMAL) CBC auto differential (06/12/2024 5:48 PM EDT) Only the most recent of6 resultswithin the time period is included. [facility] WBC 10.1 4.8 - 10.8 K/mcL LAB HEMETOLOGY METHOD 06/12/2024 7:33 PM EDT [facility] RBC 3.30(L) 4.50 - 5.50 M/mcL LAB HEMETOLOGY METHOD 06/12/2024 7:33 PM EDT [facility] Hemoglobin 10.6(L) 13.5 - 17.5 g/dL LAB HEMETOLOGY METHOD 06/12/2024 7:33 PM EDT [facility] Hematocrit 32.8(L) 42.0 - 54.0 % LAB HEMETOLOGY METHOD 06/12/2024 7:33 PM EDT [facility] MCV 99.7(H) 79.0 - 98.0 FL LAB HEMETOLOGY METHOD 06/12/2024 7:33 PM EDT [facility] MCH 32.2(H) 27.0 - 32.0 pcg LAB HEMETOLOGY METHOD 06/12/2024 7:33 PM EDT [facility] MCHC 32.3 32.0 - 37.0 g/dL LAB [facility] RDW 12.8 11.0 - 15.0 % LAB [facility]EMETOLOGY METHOD 06[facility]12[facility]2024 7[facility] Platelets 246 130 - 400 K/mcL LAB HEMETOLOGY METHOD 06/12/2024 7:33 PM [facility] MPV 9.0 7.0 - 11.0 FL LAB HEMETOLOGY METHOD 06/12/2024 7:33 PM [facility] NRBC 0.0 <1.0 % LAB HEMETOLOGY METHOD 06/12/2024 7:33 PM [facility] NRBC Absolute 0.00 <0.10 K/mcL LAB HEMETOLOGY METHOD 06/12/2024 7:33 PM [facility] Neutrophils Relative 73.1 % LAB HEMETOLOGY METHOD 06/12/2024 7:33 PM [facility] Lymphocytes Relative 10.4 % LAB HEMETOLOGY METHOD 06/12/2024 7:33 PM [facility] Monocytes Relative 10.6 % LAB HEMETOLOGY METHOD 06/12/2024 7:33 PM [facility] Eosinophils Relative 3.5 % LAB HEMETOLOGY METHOD 06/12/2024 7:33 PM [facility] Basophils Relative 0.3 % LAB HEMETOLOGY METHOD 06/12/2024 7:33 PM [facility] Immature Granulocytes Relative 2.1 % LAB HEMETOLOGY METHOD 06/12/2024 7:33 PM [facility] Neutrophils Absolute 7.41(H) 1.50 - 7.00 K/[facility] LAB HEMETOLOGY METHOD 06/12/2024 7:33 PM EDT [facility] Lymphocytes Absolute 1.05 1.00 - 5.00 K/[facility] LAB HEMETOLOGY METHOD 06/12/2024 7:33 PM EDT [facility] Monocytes Absolute 1.07(H) 0.20 - 1.00 K/[facility] LAB HEMETOLOGY METHOD 06/12/2024 7:33 PM EDT [facility] Eosinophils Absolute 0.35 0.00 - 0.50 K/[facility] LAB HEMETOLOGY METHOD 06/12/2024 7:33 PM EDT [facility] Basophils Absolute 0.03 0.00 - 0.20 K/[facility] LAB HEMETOLOGY METHOD 06/12/2024 7:33 PM EDT [facility] Immature Granulocytes Absolute 0.21(H) 0.00 - 0.03 K/[facility] LAB HEMETOLOGY METHOD 06/12/2024 7:33 PM EDT [facility] Blood Venous blood specimen / Unknown 06/12/2024 5:48 PM EDT 06/12/2024 6:51 PM EDT us Pcp Unknown Physician LAB BLOOD ORDERABLES Final Result [facility] [address] [place] [address], * Thyroxine free (06/12/2024 5:48 PM EDT) Only the most recent of2 resultswithin the time period is included. Free T4 1.12 0.70 - 1.80 ng/dL LAB CHEMISTRY METHOD 06/12/2024 8:18 PM EDT [facility] Blood Venous blood specimen / Unknown 06/12/2024 5:48 PM EDT 06/12/2024 6:51 PM EDT us Pcp Unknown Physician LAB BLOOD ORDERABLES Final Result [facility] [address] [place] [address], * (ABNORMAL) Comprehensive metabolic panel (06/12/2024 5:48 PM EDT) Sodium 141 133 - 145 mmol/L LAB CHEMISTRY [facility] Potassium 4.5 3.5 - 5.5 mmol/L LAB CHEMISTRY METHOD 06/12/2024 7:45 PM [facility] Chloride 108 96 - 110 mmol/L LAB CHEMISTRY METHOD 06/12/2024 7:45 PM [facility] CO2 23 21 - 32 mmol/L LAB CHEMISTRY METHOD 06/12/2024 7:45 PM [facility] Anion Gap 10 3 - 11 LAB CHEMISTRY METHOD 06/12/2024 7:45 PM [facility] Glucose 159(H) 70 - 100 mg/dL LAB CHEMISTRY METHOD 06/12/2024 7:45 PM [facility] BUN 79(H) 5 - 25 mg/dL LAB CHEMISTRY METHOD 06/12/2024 7:45 PM [facility] Creatinine 5.89(H) 0.70 - 1.30 mg/dL LAB CHEMISTRY METHOD 06/12/2024 7:45 PM [facility] eGFR 9(L) >=60 mL/min/1. 73m2 LAB CHEMISTRY METHOD 06/12/2024 7:45 PM [facility] Comment:Calculation based on the??Chronic Kidney Disease Epidemiology Collaboration (CKD-EPI) equation refit??without adjustment for race. BUN/Creatinine Ratio 13.4 LAB CHEMISTRY METHOD 06/12/2024 7:45 PM [facility] Calcium 9.6 8.5 - 10.5 mg/dL LAB CHEMISTRY METHOD 06/12/2024 7:45 PM EDT [facility] AST (SGOT) 10 10 - 42 unit/L LAB CHEMISTRY METHOD 06/12/2024 7:45 PM EDT [facility] ALT (SGPT) 17 10 - 60 unit/L LAB CHEMISTRY METHOD 06/12/2024 7:45 PM EDT [facility] Alkaline Phosphatase 98 42 - 121 unit/L LAB CHEMISTRY METHOD 06/12/2024 7:45 PM EDT [facility] Total Protein 7.0 6.0 - 8.0 g/dL LAB CHEMISTRY METHOD 06/12/2024 7:45 PM EDT [facility] Albumin 3.1(L) 3.2 - 5.0 g/dL LAB CHEMISTRY METHOD 06/12/2024 7:45 PM EDT [facility] Total Bilirubin 0.4 0.0 - 1.4 mg/dL LAB CHEMISTRY METHOD 06/12/2024 7:45 PM EDT [facility] Blood Venous blood specimen / Unknown 06/12/2024 5:48 PM EDT 06/12/2024 6:51 PM EDT us Pcp Unknown Physician LAB BLOOD ORDERABLES Final Result [facility] [address] [place] [address], * Richardson urine culture tube (05/20/2024 7:00 PM EDT) Extra Tube Hold for add-ons. 05/21/2024 9:01 AM EDT [facility] Comment:Auto resulted. Urine Urine specimen obtained by clean catch procedure / Unknown 05/20/2024 7:00 PM EDT 05/21/2024 7:43 AM EDT us Kofi Arora MD LAB URINE ORDERABLES Final Resul t Performing Organization Address [facility] Co de Phone Number [facility] [address] [place] [address], [place] [phone] * (ABNORMAL) Microalbumin creatinine urine ratio (05/20/2024 7:00 PM EDT) Creatinine, Urine 34.0 mg/dL LAB CHEMISTRY METHOD 05/21/2024 10:47 AM EDT [facility] Microalb, Ur 122.0(H) 0.0 - 29.0 mg/L LAB CHEMISTRY METHOD 05/21/2024 10:47 AM EDT [facility] Microalb/Crea t Ratio 359(H) <30 mg/g creat LAB CHEMISTRY METHOD 05/21/2024 10:47 AM EDT [facility] Urine Urine specimen obtained by clean catch procedure / Unknown 05/20/2024 7:00 PM EDT 05/21/2024 7:43 AM EDT us Kofi Arora MD LAB URINE ORDERABLES Final Resul t Performing Organization Address [facility] de Phone Number [facility] [address] [place] [address], [place] [phone] * Lavender tube (05/14/2024 7:13 AM EDT) Extra Tube Hold for add-ons. 05/14/2024 10:01 AM EDT [facility] Comment:Auto resulted. Blood Venous blood specimen / Unknown 05/14/2024 7:13 AM EDT 05/14/2024 8:25 AM EDT us Kofi Arora MD LAB BLOOD ORDERABLES Final Resul t Performing Organization Address [facility]/ZIP Co de Phone Number [facility] [address] [place] [address], [place] [phone] * Vitamin D 25 hydroxy (05/14/2024 7:13 AM EDT) Vit D, 25-Hydroxy 37.2 30.0 - 80.0 ng/mL LAB CHEMISTRY METHOD 05/14/2024 9:10 AM EDT [facility] Blood Venous blood specimen / Unknown 05/14/2024 7:13 AM EDT 05/14/2024 8:25 AM EDT us Kofi Arora MD LAB BLOOD ORDERABLES Final Resul t [facility] [address] [place] [address], [place] [phone] * (ABNORMAL) Parathyroid hormone intact (05/14/2024 7:13 AM EDT) PTH 118.1(H) 18.5 - 88.0 pcg/mL LAB CHEMISTRY METHOD 05/14/2024 9:15 AM EDT [facility] Blood Venous blood specimen / Unknown 05/14/2024 7:13 AM EDT 05/14/2024 8:25 AM EDT us Kofi Arora MD LAB BLOOD ORDERABLES Final Resul t [facility] [address] [place] [address], [place] [phone] * (ABNORMAL) Renal function panel (05/14/2024 7:13 AM EDT) Sodium 145 133 - 145 mmol/L LAB CHEMISTRY METHOD 05/14/2024 9:16 AM EDT [facility] Potassium 4.6 3.5 - 5.5 mmol/L LAB CHEMISTRY METHOD 05/14/2024 9:16 AM EDT [facility] Chloride 113(H) 96 - 110 mmol/L LAB CHEMISTRY METHOD 05/14/2024 9:16 AM [facility] CO2 24 21 - 32 mmol/L LAB CHEMISTRY METHOD 05/14/2024 9:16 AM [facility] Anion Gap 8 3 - 11 LAB CHEMISTRY METHOD 05/14/2024 9:16 AM [facility] Glucose 87 70 - 100 mg/dL LAB CHEMISTRY METHOD 05/14/2024 9:16 AM [facility] BUN 79(H) 5 - 25 mg/dL LAB CHEMISTRY METHOD 05/14/2024 9:16 AM [facility] Creatinine 5.69(H) 0.70 - 1.30 mg/dL LAB CHEMISTRY METHOD 05/14/2024 9:16 AM [facility] eGFR 10(L) >=60 mL/min/1. 73m2 LAB CHEMISTRY METHOD 05/14/2024 9:16 AM [facility] Comment:Calculation based on the??Chronic Kidney Disease Epidemiology Collaboration (CKD-EPI) equation refit??without adjustment for race. BUN/Creatinine Ratio 13.9 LAB CHEMISTRY METHOD 05/14/2024 9:16 AM [facility] Albumin 3.3 3.2 - 5.0 g/dL LAB CHEMISTRY METHOD 05/14/2024 9:16 AM [facility] Calcium 9.4 8.5 - 10.5 mg/dL LAB CHEMISTRY METHOD 05/14/2024 9:16 AM [facility] Phosphorus 6.1(H) 2.5 - 4.5 mg/dL LAB CHEMISTRY METHOD 05/14/2024 9:16 AM [facility] Blood Venous blood specimen / Unknown 05/14/2024 7:13 AM EDT 05/14/2024 8:25 AM EDT us Kofi Arora MD LAB BLOOD ORDERABLES Final Resul t [facility] [address] [place] [address], * (ABNORMAL) Lipid panel with reflex to direct LDL (05/05/2024 6:36 AM EST) Cholesterol 182 0 - 200 mg/dL LAB CHEMISTRY METHOD 05/05/2024 8:47 AM EST [facility] Triglycerides 152(H) 0 - 150 mg/dL LAB CHEMISTRY METHOD 05/05/2024 8:47 AM EST [facility] HDL 44 >=40 mg/dL LAB CHEMISTRY METHOD 05/05/2024 8:47 AM [facility] LDL Calculated 108(H) 0 - 100 mg/dL LAB CHEMISTRY METHOD 05/05/2024 8:47 AM [facility] VLDL Cholesterol Boyd 30.4 mg/dL LAB CHEMISTRY METHOD 05/05/2024 8:47 AM [facility] Non HDL Chol. (LDL+VLDL) 138 <145 mg/dL LAB CHEMISTRY METHOD 05/05/2024 8:47 AM [facility] Chol/HDL Ratio 4.1 0.0 - 4.4 LAB CHEMISTRY METHOD 05/05/2024 8:47 AM [facility] Blood Venous blood specimen / Unknown 05/05/2024 6:36 AM EST 05/05/2024 8:08 AM EST Kofi Arora MD LAB BLOOD ORDERABLES Final Resul t [facility] [address] [place] [address], [place] [phone] * (ABNORMAL) Basic metabolic panel (05/05/2024 6:36 AM EST) Only the most recent of2 resultswithin the time period is included. Sodium 146(H) 133 - 145 mmol/L LAB CHEMISTRY METHOD 05/05/2024 8:56 AM [facility] Potassium 4.4 3.5 - 5.5 mmol/L LAB CHEMISTRY METHOD 05/05/2024 8:56 AM [facility] Chloride 112(H) 96 - 110 mmol/L LAB CHEMISTRY METHOD 05/05/2024 8:56 AM [facility] CO2 23 21 - 32 mmol/L LAB CHEMISTRY METHOD 05/05/2024 8:56 AM [facility] Anion Gap 11 3 - 11 LAB CHEMISTRY METHOD 05/05/2024 8:56 AM [facility] Glucose 90 70 - 100 mg/dL LAB CHEMISTRY METHOD 05/05/2024 8:56 AM [facility] BUN 69(H) 5 - 25 mg/dL LAB CHEMISTRY METHOD 05/05/2024 8:56 AM [facility] Creatinine 5.28(H) 0.70 - 1.30 mg/dL LAB CHEMISTRY METHOD 05/05/2024 8:56 AM [facility] eGFR 11(L) >=60 mL/min/1. 73m2 LAB CHEMISTRY METHOD 05/05/2024 8:56 AM [facility] Comment:Calculation based on the??Chronic Kidney Disease Epidemiology Collaboration (CKD-EPI) equation refit??without adjustment for race. BUN/Creatinine Ratio 13.1 LAB CHEMISTRY METHOD 05/05/2024 8:56 AM [facility] Calcium 9.4 8.5 - 10.5 mg/dL LAB CHEMISTRY METHOD 05/05/2024 8:56 AM [facility] Blood Venous blood specimen / Unknown 05/05/2024 6:36 AM EST 05/05/2024 8:08 AM EST us Kofi Arora MD LAB BLOOD ORDERABLES Final Resul t [facility] [address] [place] [address], * Clozapine (04/09/2024 6:52 AM EST) Clozapine 310 200 - 700 ng/mL 04/13/2024 7:32 AM EST [facility] Comment:Clozapine (Clozaril) toxic level: >1000 ng/mL Norclozapine 236 200 - 700 ng/mL 04/13/2024 7:32 AM EST [facility] Comment: For Refractory Schizophrenia, at least 350 ng/mL of Clozapine should be achieved to evaluate efficacy. After response is achieved, reduce dose to minimum level needed to maintain remission. Seizure activity may occur with Clozapine levels over 600 ng/mL, but is unusual below 1000 ng/mL. The biological activity of Clozapine metabolites is not fully known. Typically, Norclozapine concentrations are similar to those of the parent Clozapine (+/- 50%). If applicable, any drug confirmation testing reported here was developed and the performance characteristics determined by [facility]. This confirmation testing has not been cleared or approved by the FDA. The laboratory is regulated under CLIA as qualified to perform high-complexity testing. This test is used for patient testing purposes. It should not be regarded as investigational or for research. Test performed at [facility], [address] [place], [place] ??[address] ? [phone] Jaki Young MD, PhD - Manager Provider Relations Blood Venous blood specimen / Unknown 04/09/2024 6:52 AM EST 04/09/2024 8:02 AM EST Kofi Arora MD LAB BLOOD ORDERABLES Final Resul t [facility] [address] [place] [address] from Last 3 Months Insurance MEDICARE MEDICAID - [place] Care Teams Associate Material Handler Relationship Specialty Start Date End Date Kofi Arora MD [address] [place] [address] [address] EDITH Thurston PCP - General Internal Medicine 04/09/24
--- OUTSIDE RECORDS SUMMARY | 2024-07-02 11:47 | XMS_ITS | Encounter Summary ---
Author Organization [employer] Address [address] [place] [address] Care Team Providers Care Cheese Wrapper Name Role Phone Kofi Arora MD Primary Care Provider [phone] Encounter Details Date Type Department Care Team (Late st Contact Info) Description 05/14/[address] [facility] - Main Lab [address] [facility] [place] [address] Kofi Arora MD [address] [place] [address] [address] [place], [place] Chronic kidney disease, stage 5 (CMS/HCC V24, CMS/HCC V28) Social History Tobacco [...] Procedure Name Priority Date/Time Associated Diagnosis Comments LAVENDER - EDTA Routine 05/14/2024 7:13 AM EDT Chronic kidney disease, stage 5 (CMS/HCC) VITAMIN D 25 HYDROXY Routine 05/14/2024 7:13 AM EDT Chronic kidney disease, stage 5 (CMS/HCC) PARATHYROID HORMONE INTACT Routine 05/14/2024 7:13 AM EDT Chronic kidney disease, stage 5 (CMS/HCC) RENAL FUNCTION PANEL Routine 05/14/2024 7:13 AM EDT Chronic kidney disease, stage 5 (CMS/HCC) documented in this encounter Results * Lavender tube (05/14/2024 7:13 AM EDT) Extra Tube Hold for add-ons. 05/14/2024 10:[address] [facility] Comment:Auto resulted. Blood Venous blood specimen / Unknown 05/14/2024 7:13 AM EDT 05/14/2024 8:25 AM EDT us Kofi Arora MD LAB BLOOD ORDERABLES Final Resul t Performing Organization Address [facility] Co de Phone Number [facility] [address] [place] [address], [place] [phone] * Vitamin D 25 hydroxy (05/14/2024 7:13 AM EDT) Vit D, 25-Hydroxy 37.2 30.0 - 80.0 ng/mL LAB CHEMISTRY METHOD 05/14/2024 9:[address] [facility] Blood Venous blood specimen / Unknown 05/14/2024 7:13 AM EDT 05/14/2024 8:25 AM EDT us Kofi Arora MD LAB BLOOD ORDERABLES Final Resul t Performing Organization Address [facility] de Phone Number [facility] [address] [place] [address], [place] [phone] * (ABNORMAL) Parathyroid hormone intact (05/14/2024 7:13 AM EDT) PTH 118.1(H) 18.5 - 88.0 pcg/mL LAB CHEMISTRY METHOD 05/14/2024 9:[address] [facility] Blood Venous blood specimen / Unknown 05/14/2024 7:13 AM EDT 05/14/2024 8:25 AM EDT us Kofi Arora MD LAB BLOOD ORDERABLES Final Resul t Performing Organization Address [facility]/ZIP Co de Phone Number [facility] [address] [place] [address], [place] [phone] * (ABNORMAL) Renal function panel (05/14/2024 7:13 AM EDT) Sodium 145 133 - 145 mmol/L LAB CHEMISTRY METHOD 05/14/2024 9:16 AM [facility] Potassium 4.6 3.5 - 5.5 mmol/L LAB CHEMISTRY METHOD 05/14/2024 9:16 AM [facility] Chloride 113(H) 96 - 110 mmol/L LAB CHEMISTRY METHOD 05/14/2024 9:16 AM [facility] CO2 24 21 - 32 mmol/L LAB CHEMISTRY METHOD 05/14/2024 9:16 AM [facility] Anion Gap 8 3 - 11 LAB CHEMISTRY METHOD 05/14/2024 9:16 AM [facility] Glucose 87 70 - 100 mg/dL LAB CHEMISTRY METHOD 05/14/2024 9:16 AM [facility] BUN 79(H) 5 - 25 mg/dL LAB CHEMISTRY METHOD 05/14/2024 9:16 AM [facility] Creatinine 5.69(H) 0.70 - 1.30 mg/dL LAB CHEMISTRY METHOD 05/14/2024 9:16 AM [facility] eGFR 10(L) >=60 mL/min/1. 73m2 LAB CHEMISTRY METHOD 05/14/2024 9:16 AM [facility] Comment:Calculation based on the??Chronic Kidney Disease Epidemiology Collaboration (CKD-EPI) equation refit??without adjustment for race. BUN/Creatinine Ratio 13.9 LAB CHEMISTRY METHOD 05/14/2024 9:16 AM [facility] Albumin 3.3 3.2 - 5.0 g/dL LAB CHEMISTRY METHOD 05/14/2024 9:16 AM [facility] Calcium 9.4 8.5 - 10.5 mg/dL LAB CHEMISTRY METHOD 05/14/2024 9:[address] [facility] Phosphorus 6.1(H) 2.5 - 4.5 mg/dL LAB CHEMISTRY METHOD 05/14/2024 9:[address] [facility] Blood Venous blood specimen / Unknown 05/14/2024 7:13 AM EDT 05/14/2024 8:25 AM EDT us Kofi Arora MD LAB BLOOD ORDERABLES Final Resul t [facility] [address] [place] [address], [place] [phone] documented in this encounter Visit Diagnoses Diagnosis Chronic kidney disease, stage 5 (CMS/HCC V24, CMS/HCC V28) documented in this encounter Care Teams Cheese Wrapper Relationship Specialty Start Date End Date Kofi Arora MD [address] [place] [address] Dr [address] [place], [place] PCP - General Internal Medicine 04/09/24 documented as of this encounter
--- OUTSIDE RECORDS SUMMARY | 2024-07-02 11:47 | XMS_ITS | Encounter Summary ---
Author Organization [employer] Address [address] [place] [address] Care Team Providers Care Attache Name Role Phone Kofi Arora MD Primary Care Provider [phone] Encounter Details Date Type Department Care Team (Latest Contact Info) Description 06/12/2024 Lab Requisition [facility] - Main Lab [address] [facility] [address] [place] [address] Physician, Pcp Unknown Adrenogenital disorder, unspecified (CMS/HCC V24); Chronic kidney disease, stage 5 (CMS/HCC V24, CMS/HCC V28); Hypothyroidism, unspecified Social History Tobacco Use Types Packs/Day [...] Diagnosis Comments CBC WITH AUTO DIFFERENTIAL Routine 06/12/2024 5:48 [...] 06/12/2024 5:48 PM EDT Adrenogenital disorder, unspecified ([facility] V24) Chronic kidney disease, stage 5 ([facility] V24, [facility] V28) Hypothyroidism, unspecified documented in this encounter Results * (ABNORMAL) CBC auto differential (06/12/2024 5:48 PM EDT) WBC 10.1 4.8 - 10.8 K/mcL LAB HEMETOLOGY METHOD [facility] RBC 3.30(L) 4.50 - 5.50 M/mcL LAB HEMETOLOGY METHOD 06/12/2024 7:33 PM [facility] Hemoglobin 10.6(L) 13.5 - 17.5 g/dL LAB HEMETOLOGY METHOD 06/12/2024 7:33 PM [facility] Hematocrit 32.8(L) 42.0 - 54.0 % LAB HEMETOLOGY METHOD 06/12/2024 7:33 PM [facility] MCV 99.7(H) 79.0 - 98.0 FL LAB HEMETOLOGY METHOD 06/12/2024 7:33 PM [facility] MCH 32.2(H) 27.0 - 32.0 pcg LAB HEMETOLOGY METHOD 06/12/2024 7:33 PM [facility] MCHC 32.3 32.0 - 37.0 g/dL LAB HEMETOLOGY METHOD 06/12/2024 7:33 PM [facility] RDW 12.8 11.0 - 15.0 % LAB HEMETOLOGY METHOD 06/12/2024 7:33 PM [facility] Platelets 246 130 - 400 K/mcL LAB HEMETOLOGY METHOD 06/12/2024 7:33 PM [facility] MPV 9.0 7.0 - 11.0 FL LAB HEMETOLOGY METHOD 06/12/2024 7:33 PM EDT [facility] NRBC 0.0 <1.0 % LAB HEMETOLOGY METHOD 06/12/2024 7:33 [facility] NRBC Absolute 0.00 <0.10 K/mcL LAB HEMETOLOGY METHOD 06/12/2024 7:33 PM [facility] Neutrophils Relative 73.1 % LAB HEMETOLOGY METHOD 06/12/2024 7:33 PM [facility] Lymphocytes Relative 10.4 % LAB HEMETOLOGY METHOD 06/12/2024 7:33 PM [facility] Monocytes Relative 10.6 % LAB HEMETOLOGY METHOD 06/12/2024 7:33 PM [facility] Eosinophils Relative 3.5 % LAB HEMETOLOGY METHOD 06/12/2024 7:33 PM [facility] Basophils Relative 0.3 % LAB HEMETOLOGY METHOD 06/12/2024 7:33 PM [facility] Immature Granulocytes Relative 2.1 % LAB HEMETOLOGY METHOD 06/12/2024 7:33 PM [facility] Neutrophils Absolute 7.41(H) 1.50 - 7.00 K/mcL LAB HEMETOLOGY METHOD 06/12/2024 7:33 PM [facility] Lymphocytes Absolute 1.05 1.00 - 5.00 K/mcL LAB HEMETOLOGY METHOD 06/12/2024 7:33 PM [facility] Monocytes Absolute 1.07(H) 0.20 - 1.00 K/mcL LAB HEMETOLOGY METHOD 06/12/2024 7:33 PM [facility] Eosinophils Absolute 0.35 0.00 - 0.50 K/mcL LAB HEMETOLOGY METHOD 06/12/2024 7:33 PM [facility] Basophils Absolute 0.03 0.00 - 0.20 K/[facility] HEMETOLOGY METHOD 06/12/2024 7:33 PM EDT [facility] Immature Granulocytes Absolute 0.21(H) 0.00 - 0.03 K/[facility] LAB HEMETOLOGY METHOD 06/12/2024 7:33 PM EDT [facility] Blood Venous blood specimen / Unknown 06/12/2024 5:48 PM EDT 06/12/2024 6:51 PM EDT us Pcp Unknown Physician LAB BLOOD ORDERABLES Final Result [facility] [address] [place] [address], [place] [phone] * Thyroxine free (06/12/2024 5:48 PM EDT) Free T4 1.12 0.70 - 1.80 ng/dL LAB CHEMISTRY METHOD 06/12/2024 8:18 PM EDT [facility] Blood Venous blood specimen / Unknown 06/12/2024 5:48 PM EDT 06/12/2024 6:51 PM EDT us Pcp Unknown Physician LAB BLOOD ORDERABLES Final Result Performing Organization Address City/[facility]/ZIP Co de Phone Number [facility] [address] [place] [address], [place] [phone] * (ABNORMAL) Comprehensive metabolic panel (06/12/2024 5:48 PM EDT) Sodium 141 133 - 145 mmol/L LAB CHEMISTRY METHOD 06/12/2024 7:45 PM EDT [facility] Potassium 4.5 3.5 - 5.5 mmol/L LAB CHEMISTRY METHOD 06/12/2024 7:45 PM EDT [facility] Chloride 108 96 - 110 mmol/L LAB CHEMISTRY METHOD 06/12/2024 7:45 PM [facility] CO2 23 21 - 32 mmol/L LAB CHEMISTRY METHOD 06/12/2024 7:45 PM [facility] Anion Gap 10 3 - 11 LAB CHEMISTRY METHOD 06/12/2024 7:45 PM [facility] Glucose 159(H) 70 - 100 mg/dL LAB CHEMISTRY METHOD 06/12/2024 7:45 PM [facility] BUN 79(H) 5 - 25 mg/dL LAB CHEMISTRY METHOD 06/12/2024 7:45 PM [facility] Creatinine 5.89(H) 0.70 - 1.30 mg/dL LAB CHEMISTRY METHOD 06/12/2024 7:45 PM [facility] eGFR 9(L) >=60 mL/min/1. 73m2 LAB CHEMISTRY METHOD 06/12/2024 7:45 PM [facility] Comment:Calculation based on the??Chronic Kidney Disease Epidemiology Collaboration (CKD-EPI) equation refit??without adjustment for race. BUN/Creatinine Ratio 13.4 LAB CHEMISTRY METHOD 06/12/2024 7:45 PM [facility] Calcium 9.6 8.5 - 10.5 mg/dL LAB CHEMISTRY METHOD 06/12/2024 7:45 PM [facility] AST (SGOT) 10 10 - 42 unit/L LAB CHEMISTRY METHOD 06/12/2024 7:45 PM [facility] ALT (SGPT) 17 10 - 60 unit/L LAB CHEMISTRY METHOD 06/12/2024 7:45 PM [facility] Alkaline Phosphatase 98 42 - 121 unit/L LAB CHEMISTRY METHOD 06/12/2024 7:45 PM [facility] Total Protein 7.0 6.0 - 8.0 g/dL LAB CHEMISTRY METHOD 06/12/2024 7:45 PM [facility] Albumin 3.1(L) 3.2 - 5.0 g/dL LAB CHEMISTRY METHOD 06/12/2024 7:45 PM EDT [facility] Total Bilirubin 0.4 0.0 - 1.4 mg/dL LAB CHEMISTRY METHOD 06/12/2024 7:45 PM EDT [facility] Blood Venous blood specimen / Unknown 06/12/2024 5:48 PM EDT 06/12/2024 6:51 PM EDT us Pcp Unknown Physician LAB BLOOD ORDERABLES Final Result [facility] [address] [place] [address], documented in this encounter Visit Diagnoses Diagnosis Adrenogenital disorder, unspecified (CMS/HCC V24) Chronic kidney disease, stage 5 (CMS/HCC V24, CMS/HCC V28) Hypothyroidism, unspecified documented in this encounter Care Teams Attache Relationship Specialty Start Date End Date Kofi Arora MD [address] [place], [place] PCP - General Internal Medicine 04/09/24 documented as of this encounter
--- OUTSIDE RECORDS SUMMARY | 2024-07-02 11:47 | XMS_ITS | Encounter Summary ---
Author Organization [employer] Address [address] [place] [address] Care Team Providers Care House Builder Name Role Phone Kofi Arora MD Primary Care Provider [phone] Encounter Details Date Type Department Care Team (Late st Contact Info) Description 01/16/2024 Lab Requisition [facility] [address] [place] [address] Kofi Arora MD [address] [place] [address] [address] [place], [place] Chronic kidney disease, unspecified Social History [...] Diagnosis Comments CBC WITH AUTO DIFFERENTIAL Routine 01/16/2024 7:08 AM EST Chronic kidney disease, unspecified CBC AND DIFFERENTIAL Routine 01/16/2024 7:08 AM EST Chronic kidney disease, unspecified COMPREHENSIVE METABOLIC PANEL Routine 01/16/2024 7:08 AM EST Chronic kidney disease, unspecified documented in this encounter Results * (ABNORMAL) CBC auto differential (01/16/2024 7:08 AM EST) WBC 7.9 4.8 - 10.8 K/[facility] HEMETOLOGY METHOD 01/16/2024 8:02 AM EST [facility] RBC 3.60(L) 4.50 - 5.50 M/[facility] HEMETOLOGY METHOD 01/16/2024 8:02 AM [facility] Hemoglobin 11.1(L) 13.5 - 17.5 g/dL LAB HEMETOLOGY METHOD 01/16/2024 8:02 AM [facility] Hematocrit 34.9(L) 42.0 - 54.0 % LAB HEMETOLOGY METHOD 01/16/2024 8:02 AM [facility] MCV 97.5 79.0 - 98.0 FL LAB HEMETOLOGY METHOD 01/16/2024 8:02 AM [facility] MCH 31.0 27.0 - 32.0 pcg LAB HEMETOLOGY METHOD 01/16/2024 8:02 AM [facility] MCHC 31.8(L) 32.0 - 37.0 g/dL LAB HEMETOLOGY METHOD 01/16/2024 8:02 AM [facility] RDW 14.5 11.0 - 15.0 % LAB HEMETOLOGY METHOD 01/16/2024 8:02 AM [facility] Platelets 199 130 - 400 K/mcL LAB HEMETOLOGY METHOD 01/16/2024 8:02 AM [facility] MPV 9.7 7.0 - 11.0 FL LAB HEMETOLOGY METHOD 01/16/2024 8:02 AM [facility] NRBC 0.0 <1.0 % LAB HEMETOLOGY METHOD 01/16/2024 8:02 AM [facility] NRBC Absolute 0.00 <0.10 K/mcL LAB HEMETOLOGY METHOD 01/16/2024 8:02 AM [facility] Neutrophils Relative 70.2 % LAB HEMETOLOGY METHOD 01/16/2024 8:02 AM [facility] Lymphocytes Relative 16.8 % LAB HEMETOLOGY METHOD 01/16/2024 8:02 AM [facility] Monocytes Relative 7.9 % LAB HEMETOLOGY METHOD 01/16/2024 8:02 AM [facility] Eosinophils Relative 3.6 % LAB HEMETOLOGY METHOD 01/16/2024 8:02 AM [facility] Basophils Relative 0.5 % LAB HEMETOLOGY METHOD 01/16/2024 8:02 AM [facility] Immature Granulocytes Relative 1.0 % LAB HEMETOLOGY METHOD 01/16/2024 8:02 AM [facility] Neutrophils Absolute 5.52 1.50 - 7.00 K/mcL LAB HEMETOLOGY METHOD 01/16/2024 8:02 AM [facility] Lymphocytes Absolute 1.32 1.00 - 5.00 K/mcL LAB HEMETOLOGY METHOD 01/16/2024 8:02 AM [facility] Monocytes Absolute 0.62 0.20 - 1.00 K/mcL LAB HEMETOLOGY METHOD 01/16/2024 8:02 AM [facility] Eosinophils Absolute 0.28 0.00 - 0.50 K/mcL LAB HEMETOLOGY METHOD 01/16/2024 8:02 AM [facility] Basophils Absolute 0.04 0.00 - 0.20 K/mcL LAB HEMETOLOGY METHOD 01/16/2024 8:02 AM [facility] Immature Granulocytes Absolute 0.08(H) 0.00 - 0.03 K/mcL LAB HEMETOLOGY METHOD 01/16/2024 8:02 AM [facility] Blood Venous blood specimen / Unknown 01/16/2024 7:08 AM EST 01/16/2024 7:46 AM EST us Kofi Arora MD LAB BLOOD ORDERABLES Final Resul t [facility] [address] [place] [address], * (ABNORMAL) Comprehensive metabolic panel (01/16/2024 7:08 AM EST) [facility] Signature Sodium 144 133 - 145 mmol/L LAB CHEMISTRY METHOD 01/16/2024 8:39 AM [facility] Potassium 4.4 3.5 - 5.5 mmol/L LAB CHEMISTRY METHOD 01/16/2024 8:39 AM [facility] Chloride 113(H) 96 - 110 mmol/L LAB CHEMISTRY METHOD 01/16/2024 8:39 AM [facility] CO2 23 21 - 32 mmol/L LAB CHEMISTRY METHOD 01/16/2024 8:39 AM [facility] Anion Gap 8 3 - 11 LAB CHEMISTRY METHOD 01/16/2024 8:39 AM [facility] Glucose 95 70 - 100 mg/dL LAB CHEMISTRY METHOD 01/16/2024 8:39 AM [facility] BUN 66(H) 5 - 25 mg/dL LAB CHEMISTRY METHOD 01/16/2024 8:39 AM [facility] Creatinine 5.21(H) 0.70 - 1.30 mg/dL LAB CHEMISTRY METHOD 01/16/2024 8:39 AM [facility] eGFR 11(L) >=60 mL/min/1. 73m2 LAB CHEMISTRY METHOD 01/16/2024 8:39 AM [facility] Comment:Calculation based on the??Chronic Kidney Disease Epidemiology Collaboration (CKD-EPI) equation refit??without adjustment for race. BUN/Creatinine Ratio 12.7 LAB CHEMISTRY METHOD 01/16/2024 8:39 AM [facility] Calcium 9.7 8.5 - 10.5 mg/dL LAB CHEMISTRY METHOD 01/16/2024 8:39 AM [facility] AST (SGOT) 6(L) 10 - 42 unit/L LAB CHEMISTRY METHOD 01/16/2024 8:39 AM [facility] ALT (SGPT) 17 10 - 60 unit/L LAB CHEMISTRY METHOD 01/16/2024 8:39 AM EST [facility] Alkaline Phosphatase 81 42 - 121 unit/L LAB CHEMISTRY METHOD 01/16/2024 8:39 AM EST [facility] Total Protein 6.6 6.0 - 8.0 g/dL LAB CHEMISTRY METHOD 01/16/2024 8:39 AM EST [facility] Albumin 3.6 3.2 - 5.0 g/dL LAB CHEMISTRY METHOD 01/16/2024 8:39 AM EST [facility] Total Bilirubin 0.3 0.0 - 1.4 mg/dL LAB CHEMISTRY METHOD 01/16/2024 8:39 AM [facility] Blood Venous blood specimen / Unknown 01/16/2024 7:08 AM EST 01/16/2024 7:46 AM EST us Kofi Arora MD LAB BLOOD ORDERABLES Final Resul t [facility] [address] [place] [address], [place] [phone] documented in this encounter Visit Diagnoses Diagnosis Chronic kidney disease, unspecified documented in this encounter Care Teams House Builder Relationship Specialty Start Date End Date Kofi Arora MD [address] [place] [address] Dr [address] [place] PCP - General Internal Medicine 04/09/24 documented as of this encounter
--- OUTSIDE RECORDS SUMMARY | 2024-07-02 11:47 | XMS_ITS | Encounter Summary ---
Author Organization [employer] Address [address] [place] [address] Care Team Providers Care Extension Professor Name Role Phone Kofi Arora MD Primary Care Provider [phone] Encounter Details Date Type Department Care Team (Late st Contact Info) Description 04/09/2024 Lab Requisition [facility] - Main Lab [address] [facility] [place] [address] Kofi Arora MD [address] [place] [address] [address] [place], [place] Chronic kidney disease, stage 4 (severe) (CMS/HCC V24, CMS/HCC V28); Schizoaffective disorder, unspecified (CMS/HCC V24, CMS/HCC V28) [...] Procedure Name Priority Date/Time Associated Diagnosis Comments CLOZAPINE Routine 04/09/2024 6:52 AM EST Chronic kidney disease, stage 4 (severe) (CMS/HCC) Schizoaffective disorder, unspecified (CMS/HCC) CBC WITH AUTO DIFFERENTIAL Routine 04/09/2024 6:52 AM EST Chronic kidney disease, stage 4 (severe) (CMS/HCC) Schizoaffective disorder, unspecified (CMS/HCC) CBC AND DIFFERENTIAL Routine 04/09/2024 6:52 AM EST Chronic kidney disease, stage 4 (severe) (CMS/HCC) Schizoaffective disorder, unspecified (CMS/HCC) BASIC METABOLIC PANEL Routine 04/09/2024 6:52 AM EST Chronic kidney disease, stage 4 (severe) (CMS/HCC) Schizoaffective disorder, unspecified (CMS/HCC) documented in this encounter Results * (ABNORMAL) CBC auto differential (04/09/2024 6:52 AM EST) [facility] WBC 6.6 4.8 - 10.8 K/mcL LAB HEMETOLOGY METHOD 04/09/2024 8:22 AM [facility] RBC 2.90(L) 4.50 - 5.50 M/mcL LAB HEMETOLOGY METHOD 04/09/2024 8:22 AM [facility] Hemoglobin 9.8(L) 13.5 - 17.5 g/dL LAB HEMETOLOGY METHOD 04/09/2024 8:22 AM [facility] LAB Hematocrit 28.4(L) 42.0 - 54.0 % LAB HEMETOLOGY METHOD 04/09/2024 8:22 AM [facility] MCV 99.0(H) 79.0 - 98.0 FL LAB HEMETOLOGY METHOD 04/09/2024 8:22 AM [facility] LAB MCH 34.1(H) 27.0 - 32.0 pcg LAB HEMETOLOGY METHOD 04/09/2024 8:22 AM [facility] LAB MCHC 34.5 32.0 - 37.0 g/dL LAB HEMETOLOGY METHOD 04/09/2024 8:22 AM [facility] RDW 13.0 11.0 - 15.0 % LAB HEMETOLOGY METHOD 04/09/2024 8:22 AM [facility] LAB Platelets 162 130 - 400 K/mcL LAB HEMETOLOGY METHOD 04/09/2024 8:22 AM [facility] LAB MPV 9.7 7.0 - 11.0 FL LAB HEMETOLOGY METHOD 04/09/2024 8:22 AM [facility] LAB NRBC 0.0 <1.0 % LAB HEMETOLOGY METHOD 04/09/2024 8:22 AM [facility] LAB NRBC Absolute 0.00 <0.10 K/mcL LAB HEMETOLOGY METHOD 04/09/2024 8:22 AM [facility] Neutrophils Relative 58.3 % LAB HEMETOLOGY METHOD 04/09/2024 8:22 AM [facility] Lymphocytes Relative 18.5 % LAB HEMETOLOGY METHOD 04/09/2024 8:22 AM [facility] Monocytes Relative 18.5 % LAB HEMETOLOGY METHOD 04/09/2024 8:22 AM [facility] LAB Eosinophils Relative 3.3 % LAB HEMETOLOGY METHOD 04/09/2024 8:22 AM [facility] Basophils Relative 0.5 % LAB HEMETOLOGY METHOD 04/09/2024 8:22 AM [facility] Immature Granulocytes Relative 0.9 % LAB HEMETOLOGY METHOD 04/09/2024 8:22 AM [facility] Neutrophils Absolute 3.87 1.50 - 7.00 K/mcL LAB HEMETOLOGY METHOD 04/09/2024 8:22 AM [facility] Lymphocytes Absolute 1.23 1.00 - 5.00 K/mcL LAB HEMETOLOGY METHOD 04/09/2024 8:22 AM [facility] Monocytes Absolute 1.23(H) 0.20 - 1.00 K/mcL LAB HEMETOLOGY METHOD 04/09/2024 8:22 AM [facility] Eosinophils Absolute 0.22 0.00 - 0.50 K/mcL LAB HEMETOLOGY METHOD 04/09/2024 8:22 AM [facility] Basophils Absolute 0.03 0.00 - 0.20 K/mcL LAB HEMETOLOGY METHOD 04/09/2024 8:22 AM [facility] Immature Granulocytes Absolute 0.06(H) 0.00 - 0.03 K/mcL LAB HEMETOLOGY METHOD 04/09/2024 8:22 AM EST [facility] Blood Venous blood specimen / Unknown 04/09/2024 6:52 AM EST 04/09/2024 8:02 AM EST Kofi Arora MD LAB BLOOD ORDERABLES Final Resul t [facility] ([facility] [address] [place] [address], [place] [phone] * Clozapine (04/09/2024 6:52 AM EST) Clozapine 310 200 - 700 ng/mL 04/13/2024 7:32 AM EST [facility] Comment:Clozapine (Clozaril) toxic level: >1000 ng/mL Norclozapine 236 200 - 700 ng/mL 04/13/2024 7:32 AM EST [facility] Comment: For Refractory Schizophrenia, at least [...] developed and the performance characteristics determined by [facility]. This confirmation testing has not been cleared or approved by the FDA. The laboratory is regulated under CLIA as qualified to perform high-complexity testing. This test is used for patient testing purposes. It should not be regarded as investigational or for research. Test performed at [facility], [address] , [place], [place] ??[address] ? [phone] Jaki Young MD, PhD - Insurance Collector Blood Venous blood specimen / Unknown 04/09/2024 6:52 AM EST 04/09/2024 8:02 AM EST us Kofi Arora MD LAB BLOOD ORDERABLES Final Resul t [facility] [place] [address] [address] * (ABNORMAL) Basic metabolic panel (04/09/2024 6:52 AM EST) Sodium 143 133 - 145 mmol/L LAB CHEMISTRY METHOD 04/09/2024 8:48 AM [facility] Potassium 4.6 3.5 - 5.5 mmol/L LAB CHEMISTRY METHOD 04/09/2024 8:48 AM [facility] Chloride 112(H) 96 - 110 mmol/L LAB CHEMISTRY METHOD 04/09/2024 8:48 AM [facility] CO2 22 21 - 32 mmol/L LAB CHEMISTRY METHOD 04/09/2024 8:48 AM [facility] Anion Gap 9 3 - 11 LAB CHEMISTRY METHOD 04/09/2024 8:48 AM [facility] Glucose 93 70 - 100 mg/dL LAB CHEMISTRY METHOD 04/09/2024 8:48 AM [facility] BUN 81(H) 5 - 25 mg/dL LAB CHEMISTRY METHOD 04/09/2024 8:48 AM [facility] Creatinine 5.53(H) 0.70 - 1.30 mg/dL LAB CHEMISTRY METHOD 04/09/2024 8:48 AM [facility] eGFR 10(L) >=60 mL/min/1. 73m2 LAB CHEMISTRY METHOD 04/09/2024 8:48 AM [facility] Comment:Calculation based on the??Chronic Kidney Disease Epidemiology Collaboration (CKD-EPI) equation refit??without adjustment for race. BUN/Creatinine Ratio 14.6 LAB CHEMISTRY METHOD 04/09/2024 8:48 AM [facility] Calcium 9.1 8.5 - 10.5 mg/dL LAB CHEMISTRY METHOD 04/09/2024 8:48 AM EST [facility] Blood Venous blood specimen / Unknown 04/09/2024 6:52 AM EST 04/09/2024 8:02 AM EST us Kofi Arora MD LAB BLOOD ORDERABLES Final Resul t [facility] [address] [place] [address], documented in this encounter Visit Diagnoses Diagnosis Chronic kidney disease, stage 4 (severe) (CMS/HCC V24, CMS/HCC V28) Schizoaffective disorder, unspecified (CMS/HCC V24, CMS/HCC V28) documented in this encounter Care Teams Extension Professor Relationship Specialty Start Date End Date Kofi Arora MD [address] [place] [address] Dr [address] [place], [place] PCP - General Internal Medicine 04/09/24 documented as of this encounter
--- OUTSIDE RECORDS SUMMARY | 2024-07-02 11:47 | XMS_ITS | Clinical Summary ---
Author Organization [facility] Address [address] [place] [address] [address] [place] [phone] Phone Care Team Providers Care Deicer Inspector Pneumatic Name Role Phone Kofi Arora DO Primary Care Provider [phone] Allergies Active Allergy Reactions Criticality Noted Date Comments Valproic Acid Other (see comments) 04/22/2020 Medications acetaminophen (TYLENOL) 325 MG tablet Take 2 tablets by mouth 2 (two) times a day Active atorvastatin (LIPITOR) 40 MG tablet Take 1 tablet by mouth every night Active calcitriol (ROCALTROL) 0.25 MCG capsule Take 1 capsule by mouth 1 (one) time each day Active cloZAPine (CLOZARIL) 100 MG tablet Take 1 tablet by mouth 2 (two) times a day Active lactulose (CHRONULAC) 10 GM/15ML solution Take 30 mL by mouth 2 (two) times a day Active melatonin 3 MG tablet Take 1 tablet by mouth every night Active senna (SENOKOT) 8.6 MG tablet Take 2 tablets by mouth 1 (one) time each day Active tamsulosin (FLOMAX) 0.4 MG 24 hr capsule Take 1 capsule by mouth 1 (one) time each day Active cloZAPine (CLOZARIL) 25 MG tablet Take 25 mg by mouth in the morning and 25 mg in the evening. 2 Active levothyroxine sodium (TIROSINT) 88 MCG capsule 2 Active Multiple Vitamins-Mineral s (Therapeutic-M) tablet Take 1 tablet by mouth 1 (one) time each day Active finasteride (PROSCAR) 5 MG tablet 3 Active ferrous sulfate 325 (65 Fe) MG tablet Take 325 mg by mouth 1 (one) time each day with breakfast Active docusate sodium (COLACE) 100 MG capsule Take 100 mg by mouth in the morning and 100 mg in the evening. 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, with stage 1 through stage 4 chronic kidney disease, or unspecified chronic kidney disease 04/22/2020 Essential hypertension 04/22/2020 Hypertensive renal disease 04/22/2020 Secondary hyperparathyroidism 04/22/2020 Chronic kidney disease, stage 4 (severe) 021 Encounters Date Type Department Care Team Description 05/13/2024 9:00 AM EDT Office Visit [facility] [address] [address] Anastacio Denise MD Stage 5 chronic kidney disease (HCC) (Primary Dx); Hypertension; Secondary hyperparathyroidism (HCC); Anemia of chronic disease from Last 3 Months Social History Tobacco Use Types Packs/Day Years Used Date Smoking Tobacco: Former Cigarettes Smokeless Tobacco: Never Tobacco Cessation:Counseling Given: No Alcohol Use Standard Drinks/Week Comments No 0 (1 standard drink = 0.6 oz pur e alcohol) Sex and Gender Information Value Date Recorded Sex Assigned at Not on file Legal Sex Male 5:03 PM EST Gender Identity Not on file Sexual Orientation Not on file Last Filed Vital Signs Vital Sign Reading Time Taken Comments Blood Pressure 120/80 05/13/2024 9:09 AM EDT Pulse 84 05/13/2024 9:09 AM EDT Temperature - - Respiratory Rate - - Oxygen Saturation 93% 11/07/2022 2:29 PM EDT Inhaled Oxygen Concentration - - Weight 84.4 kg (186 lb) 01/03/2024 9:53 AM EDT Height 170.2 cm (5' 7 ) 04/22/2019 12:00 PM EST Body Mass Index 29.13 04/22/2019 12:00 PM EST Plan of Treatment Upcoming Encounters Date Type Department Care Team (Late st Contact Info) Description 08/14/2024 9:00 AM EDT Office Visit [facility] [address] [facility] [address] [place] [address] Anastacio Denise MD [address] [facility] [address] [place] [address] Health Maintenance Due Date Last Done Comments Pneumococcal Vaccine: 50+ Ye ars (1 of 2 - PCV) 09/13/1967 Colorectal Cancer Screening: Annual FOBT 1997 Colorectal Cancer Screening: Colonoscopy 1997 Colorectal Cancer Screening: Sigmoidoscopy 1997 Influenza Vaccine (Season Ended) 2024 Hepatitis B Vaccine Aged Out No longe r eligible based on patient's age to complete this topic Insurance [facility] Medicare [facility] Medicare Care Teams Deicer Inspector Pneumatic Relationship Specialty Start Date End Date Kofi Arora DO [address] [place] [address] [address] [place] [address] PCP - General 03/14/20
--- OUTSIDE RECORDS SUMMARY | 2024-07-02 11:47 | XMS_ITS | Encounter Summary ---
Author Organization [employer] Address [address] [place] [address] Care Team Providers Care Oak Tanner Name Role Phone Kofi Arora MD Primary Care Provider [phone] Encounter Details Date Type Department Care Team (Latest Contact Info) Description 03/18/2024 Lab Requisition [facility] [address] [place] [address] Kofi Arora MD [address] [place] [address] Dr [address] [place], [place] Schizoaffective disorder, unspecified (CMS/HCC V24, CMS/HCC [...] Diagnosis Comments CBC WITH AUTO DIFFERENTIAL Routine 03/18/2024 6:33 AM EST Schizoaffective disorder, unspecified (CMS/HCC) CBC AND DIFFERENTIAL Routine 03/18/2024 6:33 AM EST Schizoaffective disorder, unspecified (CMS/HCC) documented in this encounter Results * (ABNORMAL) CBC auto differential (03/18/2024 6:33 AM EST) WBC 8.5 4.8 - 10.8 K/[facility] LAB HEMETOLOGY METHOD 03/18/2024 7:53 AM EST [facility] RBC 2.70(L) 4.50 - 5.50 M/[facility] LAB HEMETOLOGY METHOD 03/18/2024 7:53 AM EST [facility] Hemoglobin 8.8(L) 13.5 - 17.5 g/dL LAB HEMETOLOGY METHOD 03/18/2024 7:[address] [facility] Hematocrit 27.3(L) 42.0 - 54.0 % LAB HEMETOLOGY METHOD 03/18/2024 7:[address] [facility] MCV 101.1(H) 79.0 - 98.0 FL LAB HEMETOLOGY METHOD 03/18/2024 7:[address] [facility] MCH 32.6(H) 27.0 - 32.0 pcg LAB HEMETOLOGY METHOD 03/18/2024 7:[address] [facility] MCHC 32.2 32.0 - 37.0 g/dL LAB HEMETOLOGY METHOD 03/18/2024 7:[address] [facility] RDW 13.5 11.0 - 15.0 % LAB HEMETOLOGY METHOD 03/18/2024 7:[address] [facility] Platelets 181 130 - 400 K/mcL LAB HEMETOLOGY METHOD 03/18/2024 7:[address] [facility] MPV 9.3 7.0 - 11.0 FL LAB HEMETOLOGY METHOD 03/18/2024 7:[address] [facility] NRBC 0.0 <1.0 % LAB HEMETOLOGY METHOD 03/18/2024 7:[address] [facility] NRBC Absolute 0.00 <0.10 K/mcL LAB HEMETOLOGY METHOD 03/18/2024 7:[address] [facility] Neutrophils Relative 69.9 % LAB HEMETOLOGY METHOD 03/18/2024 7:[address] [facility] Lymphocytes Relative 15.8 % LAB HEMETOLOGY METHOD 03/18/2024 7:[address] [facility] Monocytes Relative 9.5 % LAB HEMETOLOGY METHOD 03/18/2024 7:53 AM EST [facility] Eosinophils Relative 3.5 % LAB HEMETOLOGY METHOD 03/18/2024 7:[address] [facility] Basophils Relative 0.4 % LAB HEMETOLOGY METHOD 03/18/2024 7:[address] [facility] Immature Granulocytes Relative 0.9 % LAB HEMETOLOGY METHOD 03/18/2024 7:[address] [facility] Neutrophils Absolute 5.96 1.50 - 7.00 K/mcL LAB HEMETOLOGY METHOD 03/18/2024 7:[address] [facility] Lymphocytes Absolute 1.35 1.00 - 5.00 K/mcL LAB HEMETOLOGY METHOD 03/18/2024 7:[address] [facility] Monocytes Absolute 0.81 0.20 - 1.00 K/mcL LAB HEMETOLOGY METHOD 03/18/2024 7:53 AM EST [facility] Eosinophils Absolute 0.30 0.00 - 0.50 K/mcL LAB HEMETOLOGY METHOD 03/18/2024 7:[address] [facility] Basophils Absolute 0.03 0.00 - 0.20 K/mcL LAB HEMETOLOGY METHOD 03/18/2024 7:[address] [facility] Immature Granulocytes Absolute 0.08(H) 0.00 - 0.03 K/mcL LAB HEMETOLOGY METHOD 03/18/2024 7:53 AM EST [facility] Blood Venous blood specimen / Unknown 03/18/2024 6:33 AM EST 03/18/2024 7:08 AM EST us Kofi Arora MD LAB BLOOD ORDERABLES Final Resul t [facility] [address] [place] [address], documented in this encounter Visit Diagnoses Diagnosis Schizoaffective disorder, unspecified ([facility] V24, [facility] V28) documented in this encounter Care Teams Oak Tanner Relationship Specialty Start Date End Date Kofi Arora MD [address] [place] [address] [address] [place] PCP - General Internal Medicine 04/09/24 documented as of this encounter
--- OUTSIDE RECORDS SUMMARY | 2024-07-02 11:47 | XMS_ITS | Encounter Summary ---
Author Organization [employer] Address [address] [place] [address] Care Team Providers Care Qa Specialist Name Role Phone Kofi Arora MD Primary Care Provider [phone] Encounter Details Date Type Department Care Team (Latest Contact Info) Description 04/15/[address] [facility] Lab [address] [place] [address] Kofi Arora MD [address] [place] [address] Dr [address] [place], [place] Schizoaffective disorder, unspecified (CMS/HCC V24, CMS/HCC [...] Diagnosis Comments CBC WITH AUTO DIFFERENTIAL Routine 04/15/2024 6:47 AM EST Schizoaffective disorder, unspecified (CMS/HCC) CBC AND DIFFERENTIAL Routine 04/15/2024 6:47 AM EST Schizoaffective disorder, unspecified (CMS/HCC) documented in this encounter Results * (ABNORMAL) CBC auto differential (04/15/2024 6:47 AM EST) WBC 7.4 4.8 - 10.8 K/[facility] LAB HEMETOLOGY METHOD 04/15/2024 7:29 AM EST [facility] RBC 3.00(L) 4.50 - 5.50 M/[facility] LAB HEMETOLOGY METHOD 04/15/2024 7:29 AM EST [facility] Hemoglobin 9.7(L) 13.5 - 17.5 g/dL LAB HEMETOLOGY METHOD 04/15/2024 7:29 AM [facility] Hematocrit 30.5(L) 42.0 - 54.0 % LAB HEMETOLOGY METHOD 04/15/2024 7:29 AM [facility] MCV 102.0(H) 79.0 - 98.0 FL LAB HEMETOLOGY METHOD 04/15/2024 7:29 AM [facility] MCH 32.4(H) 27.0 - 32.0 pcg LAB HEMETOLOGY METHOD 04/15/2024 7:29 AM [facility] MCHC 31.8(L) 32.0 - 37.0 g/dL LAB HEMETOLOGY METHOD 04/15/2024 7:29 AM [facility] RDW 12.8 11.0 - 15.0 % LAB HEMETOLOGY METHOD 04/15/2024 7:29 AM [facility] Platelets 230 130 - 400 K/mcL LAB HEMETOLOGY METHOD 04/15/2024 7:29 AM [facility] MPV 8.9 7.0 - 11.0 FL LAB HEMETOLOGY METHOD 04/15/2024 7:29 AM [facility] NRBC 0.0 <1.0 % LAB HEMETOLOGY METHOD 04/15/2024 7:29 AM [facility] NRBC Absolute 0.00 <0.10 K/mcL LAB HEMETOLOGY METHOD 04/15/2024 7:29 AM [facility] Neutrophils Relative 68.4 % LAB HEMETOLOGY METHOD 04/15/2024 7:29 AM [facility] Lymphocytes Relative 15.1 % LAB HEMETOLOGY METHOD 04/15/2024 7:29 AM [facility] Monocytes Relative 10.0 % LAB HEMETOLOGY METHOD 04/15/2024 7:29 AM [facility] Eosinophils Relative 3.9 % LAB HEMETOLOGY METHOD 04/15/2024 7:29 AM [facility] Basophils Relative 0.7 % LAB HEMETOLOGY METHOD 04/15/2024 7:29 AM [facility] Immature Granulocytes Relative 1.9 % LAB HEMETOLOGY METHOD 04/15/2024 7:29 AM [facility] Neutrophils Absolute 5.08 1.50 - 7.00 K/mcL LAB HEMETOLOGY METHOD 04/15/2024 7:29 AM [facility] Lymphocytes Absolute 1.12 1.00 - 5.00 K/mcL LAB HEMETOLOGY METHOD 04/15/2024 7:29 AM [facility] Monocytes Absolute 0.74 0.20 - 1.00 K/mcL LAB HEMETOLOGY METHOD 04/15/2024 7:29 AM EST [facility] Eosinophils Absolute 0.29 0.00 - 0.50 K/mcL LAB HEMETOLOGY METHOD 04/15/2024 7:29 AM [facility] Basophils Absolute 0.05 0.00 - 0.20 K/mcL LAB HEMETOLOGY METHOD 04/15/2024 7:29 AM [facility] LAB Immature Granulocytes Absolute 0.14(H) 0.00 - 0.03 K/mcL LAB HEMETOLOGY METHOD 04/15/2024 7:29 AM [facility] LAB Blood Venous blood specimen / Unknown 04/15/2024 6:47 AM EST 04/15/2024 7:16 AM EST us Kofi Arora MD LAB BLOOD ORDERABLES Final Resul t [facility] [address] [place] [address], documented in this encounter Visit Diagnoses Diagnosis Schizoaffective disorder, unspecified (CMS/[facility] V24, [facility] V28) documented in this encounter Care Teams Qa Specialist Relationship Specialty Start Date End Date Kofi Arora MD [address] [place] [address] Dr [address] [place] PCP - General Internal Medicine 04/09/24 documented as of this encounter
--- OUTSIDE RECORDS SUMMARY | 2024-07-02 11:47 | XMS_ITS | Encounter Summary ---
Author Organization [employer] Address [address] [place] [address] Care Team Providers Care Service Station Equipment Mechanic Name Role Phone Koif Arora MD Primary Care Provider [phone] Encounter Details Date Type Department Care Team (Latest Contact Info) Description 03/19/[address] [facility] Lab [address] [place] [address] Kofi Arora MD [address] [place] [address] [address] [place], [place] Schizoaffective disorder, unspecified (CMS/HCC V24, CMS/HCC [...] Diagnosis Comments CBC WITH AUTO DIFFERENTIAL Routine 03/19/2024 6:37 AM EST Schizoaffective disorder, unspecified (CMS/HCC) CBC AND DIFFERENTIAL Routine 03/19/2024 6:37 AM EST Schizoaffective disorder, unspecified (CMS/HCC) documented in this encounter Results * (ABNORMAL) CBC auto differential (03/19/2024 6:37 AM EST) WBC 5.8 4.8 - 10.8 K/[facility] LAB HEMETOLOGY METHOD 03/19/2024 7:53 AM EST [facility] RBC 2.80(L) 4.50 - 5.50 M/[facility] LAB HEMETOLOGY METHOD 03/19/2024 7:53 AM EST [facility] Hemoglobin 8.8(L) 13.5 - 17.5 g/dL LAB HEMETOLOGY METHOD 03/19/2024 7:53 AM [facility] LAB Hematocrit 28.2(L) 42.0 - 54.0 % LAB HEMETOLOGY METHOD 03/19/2024 7:53 AM [facility] LAB MCV 102.5(H) 79.0 - 98.0 FL LAB HEMETOLOGY METHOD 03/19/2024 7:53 AM [facility] LAB MCH 32.0 27.0 - 32.0 pcg LAB HEMETOLOGY METHOD 03/19/2024 7:53 AM [facility] LAB MCHC 31.2(L) 32.0 - 37.0 g/dL LAB HEMETOLOGY METHOD 03/19/2024 7:53 AM [facility] RDW 13.7 11.0 - 15.0 % LAB HEMETOLOGY METHOD 03/19/2024 7:53 AM [facility] Platelets 191 130 - 400 K/mcL LAB HEMETOLOGY METHOD 03/19/2024 7:53 AM [facility] LAB MPV 9.7 7.0 - 11.0 FL LAB HEMETOLOGY METHOD 03/19/2024 7:53 AM [facility] NRBC 0.0 <1.0 % LAB HEMETOLOGY METHOD 03/19/2024 7:53 AM [facility] NRBC Absolute 0.00 <0.10 K/mcL LAB HEMETOLOGY METHOD 03/19/2024 7:53 AM [facility] Neutrophils Relative 62.3 % LAB HEMETOLOGY METHOD 03/19/2024 7:53 AM [facility] Lymphocytes Relative 21.2 % LAB HEMETOLOGY METHOD 03/19/2024 7:53 AM [facility] Monocytes Relative 10.9 % LAB HEMETOLOGY METHOD 03/19/2024 7:53 AM EST [facility] Eosinophils Relative 4.3 % LAB HEMETOLOGY METHOD 03/19/2024 7:53 AM [facility] Basophils Relative 0.3 % LAB HEMETOLOGY METHOD 03/19/2024 7:53 AM [facility] Immature Granulocytes Relative 1.0 % LAB HEMETOLOGY METHOD 03/19/2024 7:53 AM [facility] LAB Neutrophils Absolute 3.58 1.50 - 7.00 K/mcL LAB HEMETOLOGY METHOD 03/19/2024 7:53 AM [facility] LAB Lymphocytes Absolute 1.22 1.00 - 5.00 K/mcL LAB HEMETOLOGY METHOD 03/19/2024 7:53 AM [facility] LAB Monocytes Absolute 0.63 0.20 - 1.00 K/mcL LAB HEMETOLOGY METHOD 03/19/2024 7:53 AM EST [facility] Eosinophils Absolute 0.25 0.00 - 0.50 K/mcL LAB HEMETOLOGY METHOD 03/19/2024 7:53 AM [facility] Basophils Absolute 0.02 0.00 - 0.20 K/mcL LAB HEMETOLOGY METHOD 03/19/2024 7:53 AM [facility] LAB Immature Granulocytes Absolute 0.06(H) 0.00 - 0.03 K/mcL LAB HEMETOLOGY METHOD 03/19/2024 7:53 AM [facility] Blood Venous blood specimen / Unknown 03/19/2024 6:37 AM EST 03/19/2024 7:06 AM EST us Kofi Arora MD LAB BLOOD ORDERABLES Final Resul t [facility] [address] [place] [address], documented in this encounter Visit Diagnoses Diagnosis Schizoaffective disorder, unspecified ([facility] V24, [facility] V28) documented in this encounter Care Teams Service Station Equipment Mechanic Relationship Specialty Start Date End Date Kofi Arora MD [address] [place] [address] [address] [place] PCP - General Internal Medicine 04/09/24 documented as of this encounter
--- OUTSIDE RECORDS SUMMARY | 2024-07-02 11:47 | XMS_ITS | Encounter Summary ---
Author Organization [employer] Address [address] [place] [address] Care Team Providers Care Frame Nailer Name Role Phone Kofi Arora MD Primary Care Provider [phone] Encounter Details Date Type Department Care Team (Latest Contact Info) Description 05/05/2024 Lab Requisition [facility] - Main Lab [address] [facility] [place] [address] Kofi Arora MD [address] [place] [address] Dr [address] [place], [place] Schizoaffective disorder, unspecified (CMS/HCC V24, CMS/HCC V28); Hyperlipidemia, unspecified; Hypothyroidism, unspecified Social History Tobacco Use Types [...] Procedure Name Priority Date/Time Associated Diagnosis Comments LIPID PANEL WITH REFLEX TO DIRECT LDL Routine 05/05/2024 6:36 AM EST Schizoaffective disorder, unspecified (CMS/HCC) Hyperlipidemia, unspecified Hypothyroidism, unspecified CBC WITH AUTO DIFFERENTIAL Routine 05/05/2024 6:36 [...] disorder, unspecified (CMS/HCC) Hyperlipidemia, unspecified Hypothyroidism, unspecified documented in this encounter Results * (ABNORMAL) CBC auto differential (05/05/2024 6:36 AM EST) WBC 6.5 4.8 - 10.8 K/mcL LAB HEMETOLOGY METHOD 05/05/2024 8:[address] [facility] RBC 3.00(L) 4.50 - 5.50 M/mcL LAB HEMETOLOGY METHOD 05/05/2024 8:[address] [facility] Hemoglobin 9.8(L) 13.5 - 17.5 g/dL LAB HEMETOLOGY METHOD 05/05/2024 8:[address] [facility] Hematocrit 30.4(L) 42.0 - 54.0 % LAB HEMETOLOGY METHOD 05/05/2024 8:[address] [facility] MCV 100.0(H) 79.0 - 98.0 FL LAB HEMETOLOGY METHOD 05/05/2024 8:[address] [facility] MCH 32.2(H) 27.0 - 32.0 pcg LAB HEMETOLOGY METHOD 05/05/2024 8:[address] [facility] MCHC 32.2 32.0 - 37.0 g/dL LAB HEMETOLOGY METHOD 05/05/2024 8:[address] [facility] RDW 12.9 11.0 - 15.0 % LAB HEMETOLOGY METHOD 05/05/2024 8:[address] [facility] Platelets 178 130 - 400 K/mcL LAB HEMETOLOGY METHOD 05/05/2024 8:[address] [facility] MPV 9.7 7.0 - 11.0 FL LAB HEMETOLOGY METHOD 05/05/2024 8:[address] [facility] NRBC 0.0 <1.0 % LAB HEMETOLOGY METHOD 05/05/2024 8:[address] [facility] NRBC Absolute 0.00 <0.10 K/mcL LAB HEMETOLOGY METHOD 05/05/2024 8:[address] [facility] Neutrophils Relative 62.6 % LAB HEMETOLOGY METHOD 05/05/2024 8:[address] [facility] Lymphocytes Relative 21.5 % LAB HEMETOLOGY METHOD 05/05/2024 8:[address] [facility] Monocytes Relative 10.5 % LAB HEMETOLOGY METHOD 05/05/2024 8:[address] [facility] Eosinophils Relative 4.3 % LAB HEMETOLOGY METHOD 05/05/2024 8:[address] [facility] Basophils Relative 0.6 % LAB HEMETOLOGY METHOD 05/05/2024 8:[address] [facility] Immature Granulocytes Relative 0.5 % LAB HEMETOLOGY METHOD 05/05/2024 8:[address] [facility] Neutrophils Absolute 4.04 1.50 - 7.00 K/mcL LAB HEMETOLOGY METHOD 05/05/2024 8:[address] [facility] Lymphocytes Absolute 1.39 1.00 - 5.00 K/mcL LAB HEMETOLOGY METHOD 05/05/2024 8:[address] [facility] Monocytes Absolute 0.68 0.20 - 1.00 K/mcL LAB HEMETOLOGY METHOD 05/05/2024 8:[address] [facility] Eosinophils Absolute 0.28 0.00 - 0.50 K/mcL LAB HEMETOLOGY METHOD 05/05/2024 8:[address] [facility] Basophils Absolute 0.04 0.00 - 0.20 K/mcL LAB HEMETOLOGY METHOD 05/05/2024 8:13 AM EST [facility] Immature Granulocytes Absolute 0.03 0.00 - 0.03 K/mcL LAB HEMETOLOGY METHOD 05/05/2024 8:13 AM EST [facility] Blood Venous blood specimen / Unknown 05/05/2024 6:36 AM EST 05/05/2024 8:08 AM EST us Kofi Arora MD LAB BLOOD ORDERABLES Final Resul t Performing Organization Address City/[facility]/ZIP Co de Phone Number [facility] [address] [place] [address], [place] [phone] * Thyroxine free (05/05/2024 6:36 AM EST) Free T4 1.19 0.70 - 1.80 ng/dL LAB CHEMISTRY METHOD 05/05/2024 8:[address] [facility] Blood Venous blood specimen / Unknown 05/05/2024 6:36 AM EST 05/05/2024 8:08 AM EST us Kofi Arora MD LAB BLOOD ORDERABLES Final Resul t Performing Organization Address [facility]/ZIP Co de Phone Number [facility] [address] [place] [address], [place] [phone] * (ABNORMAL) Lipid panel with reflex to direct LDL (05/05/2024 6:36 AM EST) Cholesterol 182 0 - 200 mg/dL LAB CHEMISTRY METHOD 05/05/2024 8:47 AM EST [facility] Triglycerides 152(H) 0 - 150 mg/dL LAB CHEMISTRY METHOD 05/05/2024 8:47 AM EST [facility] HDL 44 >=40 mg/dL LAB CHEMISTRY METHOD 05/05/2024 8:47 AM EST [facility] LDL Calculated 108(H) 0 - 100 mg/dL LAB CHEMISTRY METHOD 05/05/2024 8:[address] [facility] VLDL Cholesterol Boyd 30.4 mg/dL LAB CHEMISTRY METHOD 05/05/2024 8:[address] [facility] Non HDL Chol. (LDL+VLDL) 138 <145 mg/dL LAB CHEMISTRY METHOD 05/05/2024 8:[address] [facility] Chol/HDL Ratio 4.1 0.0 - 4.4 LAB CHEMISTRY METHOD 05/05/2024 8:[address] [facility] Blood Venous blood specimen / Unknown 05/05/2024 6:36 AM EST 05/05/2024 8:08 AM EST us Kofi Arora MD LAB BLOOD ORDERABLES Final Resul t [facility] [address] [place] [address], * (ABNORMAL) Basic metabolic panel (05/05/2024 6:36 AM EST) Sodium 146(H) 133 - 145 mmol/L LAB CHEMISTRY METHOD 05/05/2024 8:[address] [facility] Potassium 4.4 3.5 - 5.5 mmol/L LAB CHEMISTRY METHOD 05/05/2024 8:[address] [facility] Chloride 112(H) 96 - 110 mmol/L LAB CHEMISTRY METHOD 05/05/2024 8:[address] [facility] CO2 23 21 - 32 mmol/L LAB CHEMISTRY METHOD 05/05/2024 8:[address] [facility] Anion Gap 11 3 - 11 LAB CHEMISTRY METHOD 05/05/2024 8:[address] [facility] Glucose 90 70 - 100 mg/dL LAB CHEMISTRY METHOD 05/05/2024 8:[address] [facility] BUN 69(H) 5 - 25 mg/dL LAB CHEMISTRY METHOD 05/05/2024 8:56 AM EST [facility] Creatinine 5.28(H) 0.70 - 1.30 mg/dL LAB CHEMISTRY METHOD 05/05/2024 8:[address] [facility] eGFR 11(L) >=60 mL/min/1. 73m2 LAB CHEMISTRY METHOD 05/05/2024 8:[address] [facility] Comment:Calculation based on the??Chronic Kidney Disease Epidemiology Collaboration (CKD-EPI) equation refit??without adjustment for race. BUN/Creatinine Ratio 13.1 LAB CHEMISTRY METHOD 05/05/2024 8:[address] [facility] Calcium 9.4 8.5 - 10.5 mg/dL LAB CHEMISTRY METHOD 05/05/2024 8:[address] [facility] Blood Venous blood specimen / Unknown 05/05/2024 6:36 AM EST 05/05/2024 8:08 AM EST us Kofi Arora MD LAB BLOOD ORDERABLES Final Resul t [facility] [address] [place] [address], documented in this encounter Visit Diagnoses Diagnosis Schizoaffective disorder, unspecified (CMS/HCC V24, CMS/HCC V28) Hyperlipidemia, unspecified Hypothyroidism, unspecified documented in this encounter Care Teams Frame Nailer Relationship Specialty Start Date End Date Kofi Arora MD [address] [place] [address] Dr [address] [place] PCP - General Internal Medicine 04/09/24 documented as of this encounter
--- OUTSIDE RECORDS SUMMARY | 2024-07-02 11:47 | XMS_ITS | Encounter Summary ---
Author Organization [employer] [facility] Address [address] [place] [address] Care Team Providers Care Carpenter Assembler Name Role Phone Kofi Arora MD Primary Care Provider [phone] Encounter Details Date Type Department Care Team (Late st Contact Info) Description 01/28/[address] [facility] [address] [facility] [place] [address] Kofi Arora MD [address] [place] [address] Dr [address] [place], [place] Chronic kidney disease, unspecified Social History [...] Associated Diagnosis Comments BASIC METABOLIC PANEL Routine 01/28/2024 6:37 AM EST Chronic kidney disease, unspecified documented in this encounter Results * (ABNORMAL) Basic metabolic panel (01/28/2024 6:37 AM EST) Sodium 144 133 - 145 mmol/L LAB CHEMISTRY METHOD 01/28/2024 7:46 AM EST [facility] Potassium 4.3 3.5 - 5.5 mmol/L LAB CHEMISTRY METHOD 01/28/2024 7:46 AM EST [facility] Chloride 112(H) 96 - 110 mmol/L LAB CHEMISTRY METHOD 01/28/2024 7:46 AM EST [facility] CO2 22 21 - 32 mmol/L LAB CHEMISTRY METHOD 01/28/2024 7:46 AM EST [facility] Anion Gap 10 3 - 11 LAB CHEMISTRY METHOD 01/28/2024 7:46 AM [facility] Glucose 97 70 - 100 mg/dL LAB CHEMISTRY METHOD 01/28/2024 7:46 AM [facility] BUN 70(H) 5 - 25 mg/dL LAB CHEMISTRY METHOD 01/28/2024 7:46 AM [facility] Creatinine 5.03(H) 0.70 - 1.30 mg/dL LAB CHEMISTRY METHOD 01/28/2024 7:46 AM [facility] eGFR 11(L) >=60 mL/min/1. 73m2 LAB CHEMISTRY METHOD 01/28/2024 7:46 AM [facility] Comment:Calculation based on the??Chronic Kidney Disease Epidemiology Collaboration (CKD-EPI) equation refit??without adjustment for race. BUN/Creatinine Ratio 13.9 LAB CHEMISTRY METHOD 01/28/2024 7:46 AM [facility] Calcium 9.9 8.5 - 10.5 mg/dL LAB CHEMISTRY METHOD 01/28/2024 7:46 AM [facility] Blood Venous blood specimen / Unknown 01/28/2024 6:37 AM EST 01/28/2024 7:19 AM EST us Kofi Arora MD LAB BLOOD ORDERABLES Final Resul t [facility] [address] [place] [address], documented in this encounter Visit Diagnoses Diagnosis Chronic kidney disease, unspecified documented in this encounter Care Teams Carpenter Assembler Relationship Specialty Start Date End Date Kofi Arora MD [address] [place] [address] Dr Naomi Thurston [place] PCP - General Internal Medicine 04/09/24 documented as of this encounter
== END 2024-07-02 11:02 | disposition home or self-care (01) ==
LOC: HO.HUSH 10:19
PROVIDERS: PCP Hospitalist; Visit Provider Urology
DX: N40.1 Benign prostatic hyperplasia with lower urinary tract symptoms (principal); N13.8 Other obstructive and reflux uropathy; R97.20 Elevated prostate specific antigen [PSA]
CPT/HCPCS: 99214; G2211

== ENCOUNTER → 2024-07-02 10:19 | Outpatient (BNVA) | payer MEDICARE, MEDICAID, SELFPAY | PROVIDERS: PCP Hospitalist; Visit Provider Urology | DX: N40.1 Benign prostatic hyperplasia with lower urinary tract symptoms (principal); N13.8 Other obstructive and reflux uropathy; R97.20 Elevated prostate specific antigen [PSA] | CPT/HCPCS: 99212 ==